=== PATIENT | male | born 1960 | race Two or more races ===

== ENCOUNTER 2021-10-08 11:37 | Outpatient (REF) | payer SELFPAY ==
[2021-10-08 13:49] LABS: Hematocrit 48.8 % (42.0-52.0); Hemoglobin 15.7 g/dl (14.0-18.0); Mean Corpuscular HGB Conc 32.2 g/dl (31.0-36.0); Mean Corpuscular Hemoglobin 27.5 pg (27.0-33.0); Mean Corpuscular Volume 85.5 fL (80.0-98.0); Mean Platelet Volume 9.8 fL (9.4-12.4); Platelet Count 290 X10*3/uL (160-400); Red Blood Count 5.71 X10*6/uL (4.60-5.80); Red Cell Distribution Width 15.1 % (11.0-16.0); White Blood Count 3.6 X10*3/uL (4.8-10.8)
[2021-10-08 14:38] LABS: Alanine Aminotransferase 13 U/L (0-40); Albumin Level 4.1 g/dL (3.5-5.0); Alkaline Phosphatase 70 U/L (39-117); Anion Gap 11 (12-20); Aspartate Amino Transferase 14 U/L (5-37); Bilirubin Direct 0.2 mg/dL (0.0-0.5); Bilirubin Total 0.6 mg/dL (0.0-1.0); Blood Urea Nitrogen 12 mg/dL (9-16); Calcium 9.3 mg/dL (8.4-10.2); Carbon Dioxide 28 mmol/L (22-29); Chloride 107 mmol/L (96-108); Estimated Glomerular Filt Rate > 60; Glucose Random 104 mg/dL (60-115); Potassium 3.8 mmol/L (3.3-5.1); Sodium 142 mmol/L (135-145); Total Protein 7.1 g/dL (6.5-8.0)
[2021-10-08 15:03] LABS: Prostate Specific Antigen Scr 2.82 ng/mL (<0.05-4.0)
== END 2021-10-08 11:38 | disposition home or self-care (01) ==
LOC: HO.HMGCLDS 11:37
PROVIDERS: Visit Provider Internal Medicine
DX: Z12.5 Encounter for screening for malignant neoplasm of prostate (principal); N39.0 Urinary tract infection, site not specified
CPT/HCPCS: 36415; 80048; 80076; 84153; 85027

== ENCOUNTER 2022-07-27 13:29 | Emergency (ER) | payer MEDICAID, SELFPAY ==
--- NOTE | ~2022-07-27 | XR_ITS ---
EXAMINATION: XR CHEST CLINICAL INFORMATION: Confusion for one month COMPARISON: None TECHNIQUE: 2 views of the chest were obtained. FINDINGS: Cardiac leads overlie the chest. The lungs are well expanded. There is no focal consolidation, edema, or effusion. No pneumothorax. The cardiomediastinal silhouette is within normal limits of size with a tortuous aorta. No acute osseous abnormality. XR/XR chest 2V IMPRESSION: Clear lungs.
--- NOTE | ~2022-07-27 | CT_ITS ---
EXAMINATION: CT HEAD WITHOUT CONTRAST CLINICAL INFORMATION: Confusion for one month COMPARISON: None. TECHNIQUE: Contiguous axial imaging was performed from the skull base to vertex without intravenous contrast. This CT examination was performed using dose optimization techniques as appropriate, variously including the following: * Automated exposure control * Adjustment of mA and/or kV according to patient size (this includes techniques or standardized protocols for targeted exams where dose is matched to indication/reason for exam; i.e. extremities or head) Use of iterative reconstruction technique DLP: 649 mGy-cm. FINDINGS: There is no evidence of acute intracranial hemorrhage or territorial infarction. No abnormal mass effect or midline shift is seen. [place] to white matter differentiation is well preserved. No extra-axial fluid collections are identified. No hydrocephalus. Proportional prominence of the ventricles and sulcal spaces is consistent with mild volume loss. Patchy periventricular and deep white matter hypoattenuation is consistent with mild small vessel ischemic changes. The osseous structures and soft tissues are normal. The mastoid air cells and visualized portions of the paranasal sinuses are well aerated. CT/CT head/brain wo IV con IMPRESSION: No acute intracranial pathology. Mild volume loss with small vessel ischemic change.
[2022-07-27 13:39] VITALS: BP 166/100; PULSE 60; RESP 18; TEMP 36.4; O2SAT 100; BMI 25.7
--- NOTE | 2022-07-27 13:39 | ED.HA ---
HPI - Headache General Chief Complaint: Altered Mental Status <CRISTY James - Last Filed: 07/27/22 13:46> Stated Complaint: headaches, confusion <CRISTY James - Last Filed: 07/27/22 13:46> Time Seen by Provider: 07/27/22 13:52 <CRISTY James - Last Filed: 07/27/22 13:46> Source: patient and family <Stephen Coates MD - Last Filed: 07/27/22 15:50> Mode of arrival: ambulatory <Stephen Coates MD - Last Filed: 07/27/22 15:50> Limitations: no limitations <Stephen Coates MD - Last Filed: 07/27/22 15:50> History of Present Illness HPI Narrative: 61yoM presenting to ED c at bedside c c/o of increasing headaches and confusion over the past month and also waking up a lot at night with increased urinary urgency/frequency x 1 month and is now concerned therefore she brought him here for further evaluation treatment. She reports that he has not seen a doctor in many many years. He does not take any medications. He does not feel like he is emptying his bladder. Patient has lost 40lbs in the last 3 months <Stephen Coates MD - Last Filed: 07/27/22 15:50> MD elicited complaint: headache <Stephen Coates MD - Last Filed: 07/27/22 15:50> Onset (ago): month(s) <Stephen Coates MD - Last Filed: 07/27/22 15:50> Onset description: gradually <Stephen Coates MD - Last Filed: 07/27/22 15:50> Severity: mild <Stephen Coates MD - Last Filed: 07/27/22 15:50> Quality & Timing: aching <Stephen Coates MD - Last Filed: 07/27/22 15:50> Exacerbating factors: none <Stephen Coates MD - Last Filed: 07/27/22 15:50> Relieving factors: nothing <Stephen Coates MD - Last Filed: 07/27/22 15:50> Associated symptoms: confusion <Stephen Coates MD - Last Filed: 07/27/22 15:50> Treatments prior to arrival: none <Stephen Coates MD - Last Filed: 07/27/22 15:50> Related Data Allergies/Adverse Reactions: Allergies Allergy/AdvReac Type Severity Reaction Status Date / Time No Known Allergies Allergy Verified 04/15/22 13:06 <CRISTY James - Last Filed: 07/27/22 13:46> Review of Systems Review of Systems: Yes all other systems are reviewed and are negative <Stephen Coates MD - Last Filed: 07/27/22 15:50> [facility] Social History Social History: Social History Advance Directives: No Advance Directives Information Provided: No <CRISTY James - Last Filed: 07/27/22 13:46> Physical Exam Vital Signs: Vital Signs: Last Vital Signs Temp 97.5 F 07/27/22 13:39 Pulse 60 07/27/22 13:39 Resp 16 07/27/22 14:31 BP 166/100 H 07/27/22 13:39 Pulse Ox 100 07/27/22 13:39 O2 Del Method 07/27/22 13:39 BMI result Body Mass Index 25.7 <CRISTY James - Last Filed: 07/27/22 13:46> Vital Signs: Last Vital Signs Temp 97.5 F 07/27/22 13:39 Pulse 60 07/27/22 13:39 Resp 16 07/27/22 14:31 BP 166/100 H 07/27/22 13:39 Pulse Ox 100 07/27/22 13:39 O2 Del Method 07/27/22 13:39 BMI result Body Mass Index 25.7 <Stephen Coates MD - Last Filed: 07/27/22 15:50> Course Course Course Narrative: RME - 61yoM presenting to ED c at bedside c c/o of increasing headaches and confusion over the past month and also waking up a lot at night with increased urinary urgency/frequency x 1 month and is now concerned therefore she brought him here for further evaluation treatment. She reports that he has not seen a doctor in many many years. He does not take any medications. He does not have a primary care provider. On exam he is alert to self and place although does not know date. Normal steady gait. Extraocular movements are intact. No pronator drift noted. Face is symmetrical bilaterally. No nystagmus is noted. Therefore at this time patient will be brought to the emergency department for further evaluation treatment labs, EKG, chest x-ray, CT scan of brain without contrast, UA, drugs of abuse screen all ordered at this time. <CRISTY James - Last Filed: 07/27/22 13:46> Reevaluation(s) Reevaluation #1: No pathology found, will have the patient follow up with his doctor, I am concerned about early dementia <Stephen Coates MD - Last Filed: 07/27/22 15:50> Time: 15:49 <Stephen Coates MD - Last Filed: 07/27/22 15:50> Medical Decision Making Differential Diagnosis stroke, tumor, metastatic disease, electrolyte abnormality, UTI, early dementia <Stephen Coates MD - Last Filed: 07/27/22 15:50> Admission/Observation Based on age and symptoms admission was considered <Stephen Coates MD - Last Filed: 07/27/22 15:50> Lab Data Result Diagrams: 07/27/22 14:09 07/27/22 14:09 <CRISTY James - Last Filed: 07/27/22 13:46> Labs: Lab Results 07/27/22 07/27/22 07/27/22 Range/Units 14:06 14:09 14:09 WBC 3.8 L (4.8-10.8) X10*3/uL RBC 5.63 (4.60-5.80) X10*6/uL Hgb 15.5 (14.0-18.0) g/dl Hct 46.9 (42.0-52.0) % MCV 83.3 (80.0-98.0) fL MCH 27.5 (27.0-33.0) pg MCHC 33.0 (31.0-36.0) g/dl RDW 14.4 (11.0-16.0) % Plt Count 335 (160-400) X10*3/uL MPV 9.1 L (9.4-12.4) fL Immature Gran % (Auto) 0.3 (0.0-0.4) % Neut % (Auto) 55.3 (45-73) % Lymph % (Auto) 29.0 (20-40) % [place] % (Auto) 13.1 H (2-11) % Eos % (Auto) 1.3 (0-4) % Baso % (Auto) 1.0 (0-2) % Lymph # (Auto) 1.1 L (1.2-4.9) X10*3/uL [place] # (Auto) 0.5 (0.1-1.2) X10*3/uL Eos # (Auto) 0.1 (0.0-0.4) X10*3/uL Baso # (Auto) 0.0 (0.0-0.2) X10*3/uL Abs Immat Gran (auto) 0.01 (0.00-0.03) X10*3/uL Absolute Neuts (auto) 2.1 (2.0-8.3) x10*3/uL Absolute Nucleated RBC 0.000 (0.0-0.012) X10*3/uL Nucleated RBC % (auto) 0.0 (0.0-0.2) /100WBC PT 12.6 (10.0-13.1) SEC INR 1.1 (0.9-1.1) Sodium (135-145) mmol/L Potassium (3.3-5.1) mmol/L Chloride (96-108) mmol/L Carbon Dioxide (22-29) mmol/L Anion Gap (12-20) BUN (9-16) mg/dL Creatinine (0.5-1.4) mg/dL Estim Creat Clear Calc Estimated GFR POC Glucose 87 (60-115) mg/dL Random Glucose (60-115) mg/dL Calcium (8.4-10.2) mg/dL Magnesium (1.6-2.6) mg/dL Total Bilirubin (0.0-1.0) mg/dL AST (5-37) U/L ALT (0-40) U/L Alkaline Phosphatase (39-117) U/L Troponin I High Sens (<3.5-35.0) ng/L Total Protein (6.5-8.0) g/dL Albumin (3.5-5.0) g/dL Urine Color Urine Appearance Urine pH (5.0-9.0) Ur Specific [place] (1.005-1.025) Urine Protein (Neg-Trace) mg/dL Urine Glucose (UA) (Negative) mg/dL Urine Ketones (Negative) mg/dL Urine Blood (Negative) Urine Nitrite (Negative) Ur Leukocyte Esterase (Negative) Urine RBC (0-2) /HPF Urine WBC (0-5) /HPF Ur Squamous Epith Cells (0-2) /HPF Urine Bacteria (None Seen) Hyaline Casts (0-2) /LPF Urine Opiates Screen (Not Detect) Urine Fentanyl Screen (Not Detect) Ur Barbiturates Screen (Not Detect) Ur Phencyclidine Scrn (Not Detect) Ur Amphetamines Screen (Not Detect) U Benzodiazepines Scrn (Not Detect) Urine Cocaine Screen (Not Detect) U Marijuana (THC) Screen (Not Detect) Ethyl Alcohol mg/dL Influenza Type A (PCR) (Negative) Influenza Type B (PCR) (Negative) RSV RNA Qual (PCR) (Negative) SARS-CoV-2 RNA (RT-PCR) (Negative) 07/27/22 07/27/22 07/27/22 Range/Units 14:09 14:09 14:09 WBC (4.8-10.8) X10*3/uL RBC (4.60-5.80) X10*6/uL Hgb (14.0-18.0) g/dl Hct (42.0-52.0) % MCV (80.0-98.0) fL MCH (27.0-33.0) pg MCHC (31.0-36.0) g/dl RDW (11.0-16.0) % Plt Count (160-400) X10*3/uL MPV (9.4-12.4) fL Immature Gran % (Auto) (0.0-0.4) % Neut % (Auto) (45-73) % Lymph % (Auto) (20-40) % [place] % (Auto) (2-11) % Eos % (Auto) (0-4) % Baso % (Auto) (0-2) % Lymph # (Auto) (1.2-4.9) X10*3/uL [place] # (Auto) (0.1-1.2) X10*3/uL Eos # (Auto) (0.0-0.4) X10*3/uL Baso # (Auto) (0.0-0.2) X10*3/uL Abs Immat Gran (auto) (0.00-0.03) X10*3/uL Absolute Neuts (auto) (2.0-8.3) x10*3/uL Absolute Nucleated RBC (0.0-0.012) X10*3/uL Nucleated RBC % (auto) (0.0-0.2) /100WBC PT (10.0-13.1) SEC INR (0.9-1.1) Sodium 141 (135-145) mmol/L Potassium 4.7 D (3.3-5.1) mmol/L Chloride 105 (96-108) mmol/L Carbon Dioxide 28 (22-29) mmol/L Anion Gap 13 (12-20) BUN 11 (9-16) mg/dL Creatinine 1.08 (0.5-1.4) mg/dL Estim Creat Clear Calc 68.0 Estimated GFR > 60 POC Glucose (60-115) mg/dL Random Glucose 101 (60-115) mg/dL Calcium 9.3 (8.4-10.2) mg/dL Magnesium 1.8 (1.6-2.6) mg/dL Total Bilirubin 0.3 (0.0-1.0) mg/dL AST 16 (5-37) U/L ALT 13 (0-40) U/L Alkaline Phosphatase 71 (39-117) U/L Troponin I High Sens 4.0 (<3.5-35.0) ng/L Total Protein 6.9 (6.5-8.0) g/dL Albumin 4.0 (3.5-5.0) g/dL Urine Color Urine Appearance Urine pH (5.0-9.0) Ur Specific [place] (1.005-1.025) Urine Protein (Neg-Trace) mg/dL Urine Glucose (UA) (Negative) mg/dL Urine Ketones (Negative) mg/dL Urine Blood (Negative) Urine Nitrite (Negative) Ur Leukocyte Esterase (Negative) Urine RBC (0-2) /HPF Urine WBC (0-5) /HPF Ur Squamous Epith Cells (0-2) /HPF Urine Bacteria (None Seen) Hyaline Casts (0-2) /LPF Urine Opiates Screen (Not Detect) Urine Fentanyl Screen (Not Detect) Ur Barbiturates Screen (Not Detect) Ur Phencyclidine Scrn (Not Detect) Ur Amphetamines Screen (Not Detect) U Benzodiazepines Scrn (Not Detect) Urine Cocaine Screen (Not Detect) U Marijuana (THC) Screen (Not Detect) Ethyl Alcohol mg/dL Influenza Type A (PCR) NEGATIVE (Negative) Influenza Type B (PCR) NEGATIVE (Negative) RSV RNA Qual (PCR) NEGATIVE (Negative) SARS-CoV-2 RNA (RT-PCR) NEGATIVE (Negative) 07/27/22 07/27/22 07/27/22 Range/Units 14:09 14:23 14:23 WBC (4.8-10.8) X10*3/uL RBC (4.60-5.80) X10*6/uL Hgb (14.0-18.0) g/dl Hct (42.0-52.0) % MCV (80.0-98.0) fL MCH (27.0-33.0) pg MCHC (31.0-36.0) g/dl RDW (11.0-16.0) % Plt Count (160-400) X10*3/uL MPV (9.4-12.4) fL Immature Gran % (Auto) (0.0-0.4) % Neut % (Auto) (45-73) % Lymph % (Auto) (20-40) % [place] % (Auto) (2-11) % Eos % (Auto) (0-4) % Baso % (Auto) (0-2) % Lymph # (Auto) (1.2-4.9) X10*3/uL [place] # (Auto) (0.1-1.2) X10*3/uL Eos # (Auto) (0.0-0.4) X10*3/uL Baso # (Auto) (0.0-0.2) X10*3/uL Abs Immat Gran (auto) (0.00-0.03) X10*3/uL Absolute Neuts (auto) (2.0-8.3) x10*3/uL Absolute Nucleated RBC (0.0-0.012) X10*3/uL Nucleated RBC % (auto) (0.0-0.2) /100WBC PT (10.0-13.1) SEC INR (0.9-1.1) Sodium (135-145) mmol/L Potassium (3.3-5.1) mmol/L Chloride (96-108) mmol/L Carbon Dioxide (22-29) mmol/L Anion Gap (12-20) BUN (9-16) mg/dL Creatinine (0.5-1.4) mg/dL Estim Creat Clear Calc Estimated GFR POC Glucose (60-115) mg/dL Random Glucose (60-115) mg/dL Calcium (8.4-10.2) mg/dL Magnesium (1.6-2.6) mg/dL Total Bilirubin (0.0-1.0) mg/dL AST (5-37) U/L ALT (0-40) U/L Alkaline Phosphatase (39-117) U/L Troponin I High Sens (<3.5-35.0) ng/L Total Protein (6.5-8.0) g/dL Albumin (3.5-5.0) g/dL Urine Color Yellow Urine Appearance Clear Urine pH 6.5 (5.0-9.0) Ur Specific [place] 1.010 (1.005-1.025) Urine Protein Negative (Neg-Trace) mg/dL Urine Glucose (UA) Negative (Negative) mg/dL Urine Ketones Negative (Negative) mg/dL Urine Blood Negative (Negative) Urine Nitrite Negative (Negative) Ur Leukocyte Esterase Trace H (Negative) Urine RBC 0-2 (0-2) /HPF Urine WBC 0-5 (0-5) /HPF Ur Squamous Epith Cells 0-2 (0-2) /HPF Urine Bacteria None Seen (None Seen) Hyaline Casts 0-2 (0-2) /LPF Urine Opiates Screen Not Detected (Not Detect) Urine Fentanyl Screen Not Detected (Not Detect) Ur Barbiturates Screen Not Detected (Not Detect) Ur Phencyclidine Scrn Not Detected (Not Detect) Ur Amphetamines Screen Not Detected (Not Detect) U Benzodiazepines Scrn Not Detected (Not Detect) Urine Cocaine Screen Not Detected (Not Detect) U Marijuana (THC) Screen Not Detected (Not Detect) Ethyl Alcohol < 10 mg/dL Influenza Type A (PCR) (Negative) Influenza Type B (PCR) (Negative) RSV RNA Qual (PCR) (Negative) SARS-CoV-2 RNA (RT-PCR) (Negative) <CRISTY James - Last Filed: 07/27/22 13:46> Lab Results 07/27/22 07/27/22 07/27/22 Range/Units 14:06 14:09 14:09 WBC 3.8 L (4.8-10.8) X10*3/uL RBC 5.63 (4.60-5.80) X10*6/uL Hgb 15.5 (14.0-18.0) g/dl Hct 46.9 (42.0-52.0) % MCV 83.3 (80.0-98.0) fL MCH 27.5 (27.0-33.0) pg MCHC 33.0 (31.0-36.0) g/dl RDW 14.4 (11.0-16.0) % Plt Count 335 (160-400) X10*3/uL MPV 9.1 L (9.4-12.4) fL Immature Gran % (Auto) 0.3 (0.0-0.4) % Neut % (Auto) 55.3 (45-73) % Lymph % (Auto) 29.0 (20-40) % [place] % (Auto) 13.1 H (2-11) % Eos % (Auto) 1.3 (0-4) % Baso % (Auto) 1.0 (0-2) % Lymph # (Auto) 1.1 L (1.2-4.9) X10*3/uL [place] # (Auto) 0.5 (0.1-1.2) X10*3/uL Eos # (Auto) 0.1 (0.0-0.4) X10*3/uL Baso # (Auto) 0.0 (0.0-0.2) X10*3/uL Abs Immat Gran (auto) 0.01 (0.00-0.03) X10*3/uL Absolute Neuts (auto) 2.1 (2.0-8.3) x10*3/uL Absolute Nucleated RBC 0.000 (0.0-0.012) X10*3/uL Nucleated RBC % (auto) 0.0 (0.0-0.2) /100WBC PT 12.6 (10.0-13.1) SEC INR 1.1 (0.9-1.1) Sodium (135-145) mmol/L Potassium (3.3-5.1) mmol/L Chloride (96-108) mmol/L Carbon Dioxide (22-29) mmol/L Anion Gap (12-20) BUN (9-16) mg/dL Creatinine (0.5-1.4) mg/dL Estim Creat Clear Calc Estimated GFR POC Glucose 87 (60-115) mg/dL Random Glucose (60-115) mg/dL Calcium (8.4-10.2) mg/dL Magnesium (1.6-2.6) mg/dL Total Bilirubin (0.0-1.0) mg/dL AST (5-37) U/L ALT (0-40) U/L Alkaline Phosphatase (39-117) U/L Troponin I High Sens (<3.5-35.0) ng/L Total Protein (6.5-8.0) g/dL Albumin (3.5-5.0) g/dL Urine Color Urine Appearance Urine pH (5.0-9.0) Ur Specific [place] (1.005-1.025) Urine Protein (Neg-Trace) mg/dL Urine Glucose (UA) (Negative) mg/dL Urine Ketones (Negative) mg/dL Urine Blood (Negative) Urine Nitrite (Negative) Ur Leukocyte Esterase (Negative) Urine RBC (0-2) /HPF Urine WBC (0-5) /HPF Ur Squamous Epith Cells (0-2) /HPF Urine Bacteria (None Seen) Hyaline Casts (0-2) /LPF Urine Opiates Screen (Not Detect) Urine Fentanyl Screen (Not Detect) Ur Barbiturates Screen (Not Detect) Ur Phencyclidine Scrn (Not Detect) Ur Amphetamines Screen (Not Detect) U Benzodiazepines Scrn (Not Detect) Urine Cocaine Screen (Not Detect) U Marijuana (THC) Screen (Not Detect) Ethyl Alcohol mg/dL Influenza Type A (PCR) (Negative) Influenza Type B (PCR) (Negative) RSV RNA Qual (PCR) (Negative) SARS-CoV-2 RNA (RT-PCR) (Negative) 07/27/22 07/27/22 07/27/22 Range/Units 14:09 14:09 14:09 WBC (4.8-10.8) X10*3/uL RBC (4.60-5.80) X10*6/uL Hgb (14.0-18.0) g/dl Hct (42.0-52.0) % MCV (80.0-98.0) fL MCH (27.0-33.0) pg MCHC (31.0-36.0) g/dl RDW (11.0-16.0) % Plt Count (160-400) X10*3/uL MPV (9.4-12.4) fL Immature Gran % (Auto) (0.0-0.4) % Neut % (Auto) (45-73) % Lymph % (Auto) (20-40) % [place] % (Auto) (2-11) % Eos % (Auto) (0-4) % Baso % (Auto) (0-2) % Lymph # (Auto) (1.2-4.9) X10*3/uL [place] # (Auto) (0.1-1.2) X10*3/uL Eos # (Auto) (0.0-0.4) X10*3/uL Baso # (Auto) (0.0-0.2) X10*3/uL Abs Immat Gran (auto) (0.00-0.03) X10*3/uL Absolute Neuts (auto) (2.0-8.3) x10*3/uL Absolute Nucleated RBC (0.0-0.012) X10*3/uL Nucleated RBC % (auto) (0.0-0.2) /100WBC PT (10.0-13.1) SEC INR (0.9-1.1) Sodium 141 (135-145) mmol/L Potassium 4.7 D (3.3-5.1) mmol/L Chloride 105 (96-108) mmol/L Carbon Dioxide 28 (22-29) mmol/L Anion Gap 13 (12-20) BUN 11 (9-16) mg/dL Creatinine 1.08 (0.5-1.4) mg/dL Estim Creat Clear Calc 68.0 Estimated GFR > 60 POC Glucose (60-115) mg/dL Random Glucose 101 (60-115) mg/dL Calcium 9.3 (8.4-10.2) mg/dL Magnesium 1.8 (1.6-2.6) mg/dL Total Bilirubin 0.3 (0.0-1.0) mg/dL AST 16 (5-37) U/L ALT 13 (0-40) U/L Alkaline Phosphatase 71 (39-117) U/L Troponin I High Sens 4.0 (<3.5-35.0) ng/L Total Protein 6.9 (6.5-8.0) g/dL Albumin 4.0 (3.5-5.0) g/dL Urine Color Urine Appearance Urine pH (5.0-9.0) Ur Specific [place] (1.005-1.025) Urine Protein (Neg-Trace) mg/dL Urine Glucose (UA) (Negative) mg/dL Urine Ketones (Negative) mg/dL Urine Blood (Negative) Urine Nitrite (Negative) Ur Leukocyte Esterase (Negative) Urine RBC (0-2) /HPF Urine WBC (0-5) /HPF Ur Squamous Epith Cells (0-2) /HPF Urine Bacteria (None Seen) Hyaline Casts (0-2) /LPF Urine Opiates Screen (Not Detect) Urine Fentanyl Screen (Not Detect) Ur Barbiturates Screen (Not Detect) Ur Phencyclidine Scrn (Not Detect) Ur Amphetamines Screen (Not Detect) U Benzodiazepines Scrn (Not Detect) Urine Cocaine Screen (Not Detect) U Marijuana (THC) Screen (Not Detect) Ethyl Alcohol mg/dL Influenza Type A (PCR) NEGATIVE (Negative) Influenza Type B (PCR) NEGATIVE (Negative) RSV RNA Qual (PCR) NEGATIVE (Negative) SARS-CoV-2 RNA (RT-PCR) NEGATIVE (Negative) 07/27/22 07/27/22 07/27/22 Range/Units 14:09 14:23 14:23 WBC (4.8-10.8) X10*3/uL RBC (4.60-5.80) X10*6/uL Hgb (14.0-18.0) g/dl Hct (42.0-52.0) % MCV (80.0-98.0) fL MCH (27.0-33.0) pg MCHC (31.0-36.0) g/dl RDW (11.0-16.0) % Plt Count (160-400) X10*3/uL MPV (9.4-12.4) fL Immature Gran % (Auto) (0.0-0.4) % Neut % (Auto) (45-73) % Lymph % (Auto) (20-40) % [place] % (Auto) (2-11) % Eos % (Auto) (0-4) % Baso % (Auto) (0-2) % Lymph # (Auto) (1.2-4.9) X10*3/uL [place] # (Auto) (0.1-1.2) X10*3/uL Eos # (Auto) (0.0-0.4) X10*3/uL Baso # (Auto) (0.0-0.2) X10*3/uL Abs Immat Gran (auto) (0.00-0.03) X10*3/uL Absolute Neuts (auto) (2.0-8.3) x10*3/uL Absolute Nucleated RBC (0.0-0.012) X10*3/uL Nucleated RBC % (auto) (0.0-0.2) /100WBC PT (10.0-13.1) SEC INR (0.9-1.1) Sodium (135-145) mmol/L Potassium (3.3-5.1) mmol/L Chloride (96-108) mmol/L Carbon Dioxide (22-29) mmol/L Anion Gap (12-20) BUN (9-16) mg/dL Creatinine (0.5-1.4) mg/dL Estim Creat Clear Calc Estimated GFR POC Glucose (60-115) mg/dL Random Glucose (60-115) mg/dL Calcium (8.4-10.2) mg/dL Magnesium (1.6-2.6) mg/dL Total Bilirubin (0.0-1.0) mg/dL AST (5-37) U/L ALT (0-40) U/L Alkaline Phosphatase (39-117) U/L Troponin I High Sens (<3.5-35.0) ng/L Total Protein (6.5-8.0) g/dL Albumin (3.5-5.0) g/dL Urine Color Yellow Urine Appearance Clear Urine pH 6.5 (5.0-9.0) Ur Specific [place] 1.010 (1.005-1.025) Urine Protein Negative (Neg-Trace) mg/dL Urine Glucose (UA) Negative (Negative) mg/dL Urine Ketones Negative (Negative) mg/dL Urine Blood Negative (Negative) Urine Nitrite Negative (Negative) Ur Leukocyte Esterase Trace H (Negative) Urine RBC 0-2 (0-2) /HPF Urine WBC 0-5 (0-5) /HPF Ur Squamous Epith Cells 0-2 (0-2) /HPF Urine Bacteria None Seen (None Seen) Hyaline Casts 0-2 (0-2) /LPF Urine Opiates Screen Not Detected (Not Detect) Urine Fentanyl Screen Not Detected (Not Detect) Ur Barbiturates Screen Not Detected (Not Detect) Ur Phencyclidine Scrn Not Detected (Not Detect) Ur Amphetamines Screen Not Detected (Not Detect) U Benzodiazepines Scrn Not Detected (Not Detect) Urine Cocaine Screen Not Detected (Not Detect) U Marijuana (THC) Screen Not Detected (Not Detect) Ethyl Alcohol < 10 mg/dL Influenza Type A (PCR) (Negative) Influenza Type B (PCR) (Negative) RSV RNA Qual (PCR) (Negative) SARS-CoV-2 RNA (RT-PCR) (Negative) <Stephen Coates MD - Last Filed: 07/27/22 15:50> Independent Interpretation I performed an independent interpretation of an: EKG (sinus 70, no st or twave changes) and CT Scan (head CT no blood or tumor seen) <Stephen Coates MD - Last Filed: 07/27/22 15:50> Radiology Impression Discussion of test interpretation with radiology: I have reviewed the radiologist's reading. <Stephen Coates MD - Last Filed: 07/27/22 15:50> Independent Historian Clinical information obtained from an independent historian. History obtained from or confirmed by: Spouse <Stephen Coates MD - Last Filed: 07/27/22 15:50> Discharge Plan Discharge Clinical Impression: Altered mental status <CRISTY James - Last Filed: 07/27/22 13:46> Patient Disposition: Home, Self-Care <CRISTY James - Last Filed: 07/27/22 13:46> Instructions: Altered Mental Status (ED) <CRISTY James - Last Filed: 07/27/22 13:46> Referrals: Physician,None [Primary Care Provider] - 1 week (Must see your doctor this week) <CRISTY James - Last Filed: 07/27/22 13:46>
--- NOTE | 2022-07-27 13:43 | ECG_ITS ---
Test Reason : ams Blood Pressure : / mmHG Vent. Rate : 068 BPM Atrial Rate : 068 BPM P-R Int : 148 ms QRS Dur : 092 ms QT Int : 400 ms P-R-T Axes : 055 -19 052 degrees QTc Int : 425 ms Normal sinus rhythm Normal ECG No previous ECGs available Referred By: Gail Narayanan Electronically Signed By:QUINN RASMUSSEN
[2022-07-27 14:09] LABS: Glucose, Whole Blood 87 mg/dL (60-115)
[2022-07-27 14:14] LABS: MANUAL DIFF FLAG NO
[2022-07-27 14:16] LABS: Eosinophils Absolute Auto 0.1 X10*3/uL (0.0-0.4); Eosinophils Percent Auto 1.3 % (0-4); Hematocrit 46.9 % (42.0-52.0); Hemoglobin 15.5 g/dl (14.0-18.0); Imm Gran Abs Auto 0.01 X10*3/uL (0.00-0.03); Imm Gran Pct Auto 0.3 % (0.0-0.4); Lymphocytes Absolute Auto 1.1 X10*3/uL (1.2-4.9); Mean Corpuscular Hemoglobin 27.5 pg (27.0-33.0); Mean Corpuscular Volume 83.3 fL (80.0-98.0); Mean Platelet Volume 9.1 fL (9.4-12.4); Monocytes Absolute Auto 0.5 X10*3/uL (0.1-1.2); Monocytes Percent Auto 13.1 % (2-11); Neutrophils Absolute Auto 2.1 x10*3/uL (2.0-8.3); Neutrophils Percent Auto 55.3 % (45-73); Platelet Count 335 X10*3/uL (160-400); Red Blood Count 5.63 X10*6/uL (4.60-5.80); Red Cell Distribution Width 14.4 % (11.0-16.0); White Blood Count 3.8 X10*3/uL (4.8-10.8)
[2022-07-27 14:21] LABS: INTERNATIONAL NORM RATIO 1.1 (0.9-1.1); Prothrombin Time 12.6 SEC (10.0-13.1)
[2022-07-27 14:31] VITALS: RESP 16
[2022-07-27 14:36] LABS: Appearance Urine Clear; Color Urine Yellow; Glucose Urine UA Negative (Negative); Leukocyte Esterase Urine Trace (Negative); Nitrite Urine Negative (Negative); PH 6.5 (5.0-9.0); UMIC TRIGGER UACC YES; Urine Blood Negative (Negative); Urine Ketones Negative (Negative); Urine Protein Negative (Neg-Trace)
[2022-07-27 14:39] LABS: Bacteria Urine None Seen (None Seen); Hyaline Casts Urine 0-2 /LPF (0-2); RBC Urine 0-2 /HPF (0-2); Squamous Epithelial Cell Urine 0-2 /HPF (0-2); WBC Urine 0-5 /HPF (0-5)
[2022-07-27 14:42] LABS: Alanine Aminotransferase 13 U/L (0-40); Alkaline Phosphatase 71 U/L (39-117); Anion Gap 13 (12-20); Aspartate Amino Transferase 16 U/L (5-37); Bilirubin Total 0.3 mg/dL (0.0-1.0); Blood Urea Nitrogen 11 mg/dL (9-16); Calcium 9.3 mg/dL (8.4-10.2); Carbon Dioxide 28 mmol/L (22-29); Chloride 105 mmol/L (96-108); Estimated Glomerular Filt Rate > 60; Glucose Random 101 mg/dL (60-115); Magnesium 1.8 mg/dL (1.6-2.6); Potassium 4.7 mmol/L (3.3-5.1); Sodium 141 mmol/L (135-145); Total Protein 6.9 g/dL (6.5-8.0)
[2022-07-27 14:43] LABS: Amphetamine Screen Urine Not Detected (Not Detect); Barbiturates, Urine Not Detected (Not Detect); Benzodiazepines Screen Urine Not Detected (Not Detect); Cannabinoid Screen Urine Not Detected (Not Detect); Cocaine Screen Urine Not Detected (Not Detect); Fentanyl, urine Not Detected (Not Detect); Opiate Screen Urine Not Detected (Not Detect); Phencyclidine Screen Urine Not Detected (Not Detect)
[2022-07-27 15:18] LABS: Ethanol < 10 mg/dL; Influenza A PCR NEGATIVE (Negative); Influenza B PCR NEGATIVE (Negative); Resp Syncy Virus RNA Qual PCR NEGATIVE (Negative); SARS COV2 PCR INHOUSE NEGATIVE (Negative)
== END 2022-07-27 16:27 | disposition home or self-care (01) ==
PROVIDERS: Physician Assistant Medical; Emergency Provider Emergency Medicine
DX: R41.82 Altered mental status, unspecified (principal); R51.9 Headache, unspecified; R39.15 Urgency of urination; R35.0 Frequency of micturition; Z20.822 Contact with and (suspected) exposure to COVID-19; Z20.828 Contact with and (suspected) exposure to other viral communicable diseases
CPT/HCPCS: 0241U; 51798; 70450; 71046; 80053; 80307; 81001; 82077; 82947; 83735; 84484; 85025; 85610; 87040; 93005; 99284; 99285

== ENCOUNTER 2022-08-15 12:21 | Emergency (ER) | payer OTHER, SELFPAY ==
--- NOTE | 2022-08-15 12:55 | ED_ITS ---
HPI - General Adult General Chief complaint: General Medical <CRISTY Goldstein - Last Filed: 08/15/22 13:02> Stated complaint: cold <CRISTY Goldstein - Last Filed: 08/15/22 13:02> Time Seen by Provider: 08/15/22 16:21 <CRISTY Goldstein - Last Filed: 08/15/22 13:02> Source: patient <Aidan Clemons MD - Last Filed: 08/15/22 20:39> Mode of arrival: ambulatory <Aidan Clemons MD - Last Filed: 08/15/22 20:39> Limitations: no limitations <Aidan Clemons MD - Last Filed: 08/15/22 20:39> History of Present Illness HPI narrative: Patient with multiple complaints complaining of slight headache for him in urination urinating a lot , no burning sensation no hematuria no flank pain. Denies any change in the stream of the urine no abdominal pain or back pain patient was seen here on 07/27 at that time blood pressure was elevated but not started on any medication patient has not seen any PCP for years. No chest pain or shortness of breath <Aidan Clemons MD - Last Filed: 08/15/22 20:39> Related Data Home medications: Previous Rx's Medication Instructions Recorded amlodipine 5 mg tablet 5 mg PO DAILY #90 tabs 08/15/22 lisinopril 20 mg tablet 20 mg PO DAILY #90 tabs 08/15/22 <CRISTY Goldstein - Last Filed: 08/15/22 13:02> Allergies/adverse reactions: Allergies Allergy/AdvReac Type Severity Reaction Status Date / Time No Known Allergies Allergy Verified 08/15/22 13:04 <CRISTY Goldstein - Last Filed: 08/15/22 13:02> Review of Systems Review of Systems: Yes all other systems are reviewed and are negative <Aidan Clemons MD - Last Filed: 08/15/22 20:39> [facility] Social History Social History: Social History Advance Directives: No Advance Directives Information Provided: Yes <CRISTY Goldstein - Last Filed: 08/15/22 13:02> Physical Exam ED Vital Signs: Vital Signs - 24 hr 08/15/22 12:56 08/15/22 16:47 08/15/22 17:59 Temperature 98.8 F Pulse Rate 65 68 65 Respiratory Rate 18 18 18 Blood Pressure 199/120 H 191/112 H 182/106 H Pulse Oximetry 98 Oxygen Delivery Method Room Air 08/15/22 18:05 08/15/22 19:55 08/15/22 20:00 Temperature 98.8 F 97.9 F Pulse Rate 60 59 61 Respiratory Rate 18 13 Blood Pressure 189/115 H 164/103 H 161/100 H Pulse Oximetry 96 98 Oxygen Delivery Method Room Air Room Air BMI result Body Mass Index 25.0 <CRISTY Goldstein - Last Filed: 08/15/22 13:02> Vital Signs - 24 hr 08/15/22 12:56 08/15/22 16:47 08/15/22 17:59 Temperature 98.8 F Pulse Rate 65 68 65 Respiratory Rate 18 18 18 Blood Pressure 199/120 H 191/112 H 182/106 H Pulse Oximetry 98 Oxygen Delivery Method Room Air 08/15/22 18:05 08/15/22 19:55 08/15/22 20:00 Temperature 98.8 F 97.9 F Pulse Rate 60 59 61 Respiratory Rate 18 13 Blood Pressure 189/115 H 164/103 H 161/100 H Pulse Oximetry 96 98 Oxygen Delivery Method Room Air Room Air BMI result Body Mass Index 25.0 <Aidan Clemons MD - Last Filed: 08/15/22 20:39> Appearance: Alert. Oriented X3. No acute distress. Eyes: PERRLA, No Nystagmus ENT: Pharynx normal. Oral Mucosa moist Neck: Normal inspection. Neck supple. CVS: Normal heart rate and rhythm. Pulses normal. systolic ejection murmur at base Respiratory: No respiratory distress. Equal air entry bilateral, no wheezing/rales/rhonchi Abdomen: Soft and nontender. Bowel sounds are present, no mass palpable, no CVA tenderness Skin: Skin warm and dry. Normal skin color. Normal skin turgor. Extremities: No lower extremity edema. No calf tenderness Neuro: Oriented X 3. No motor deficit. <Aidan Clemons MD - Last Filed: 08/15/22 20:39> Course Course Course Narrative: RME - 61 y/o male presents to the ER for evaluation of cold symptoms for a week and a half, along with concerns of dehydration due to increased urinary frequency. Reports dysuria. Poor historian. Seen here 07/25 for confusion, possible early onset dementia after unremarkable workup. Seen at Urgent Care today - was reporting dizziness and blurred vision and told to come to the ER for further evaluation. BP 199/120 in triage, not on BP meds. Will need labs, EKG, UA for further evaluation. <CRISTY Goldstein - Last Filed: 08/15/22 13:02> Reevaluation(s) Reevaluation #1: patient's blood pressure continued to be elevated added clonidine 0.1 mg blood pressure now is 150/104 will discharge the patient home on amlodipine and lisinopril <Aidan Clemons MD - Last Filed: 08/15/22 20:39> Time: 20:22 <Aidan Clemons MD - Last Filed: 08/15/22 20:39> Medications Administered Discontinued Medications Generic Name Dose Route Start Last Admin Trade Name Freq PRN Reason Stop Dose Admin Amlodipine Besylate 5 mg 08/15/22 17:53 08/15/22 17:58 Amlodipine Besylate 5 Mg Tablet PO 08/15/22 17:54 5 mg ONCE ONE Administration Protocol Clonidine HCl 0.1 mg 08/15/22 18:58 08/15/22 19:55 Clonidine Hcl 0.1 Mg Tablet PO 08/15/22 18:59 0.1 mg ONCE ONE Administration Protocol Lisinopril 20 mg 08/15/22 16:49 08/15/22 17:05 Lisinopril 20 Mg Tablet PO 08/15/22 16:50 20 mg ONCE ONE Administration Protocol <CRISTY Goldstein - Last Filed: 08/15/22 13:02> Medications Administered Discontinued Medications Generic Name Dose Route Start Last Admin Trade Name Freq PRN Reason Stop Dose Admin Amlodipine Besylate 5 mg 08/15/22 17:53 08/15/22 17:58 Amlodipine Besylate 5 Mg Tablet PO 08/15/22 17:54 5 mg ONCE ONE Administration Protocol Clonidine HCl 0.1 mg 08/15/22 18:58 08/15/22 19:55 Clonidine Hcl 0.1 Mg Tablet PO 08/15/22 18:59 0.1 mg ONCE ONE Administration Protocol Lisinopril 20 mg 08/15/22 16:49 08/15/22 17:05 Lisinopril 20 Mg Tablet PO 08/15/22 16:50 20 mg ONCE ONE Administration Protocol <Aidan Clemons MD - Last Filed: 08/15/22 20:39> Medical Decision Making Medical Decision Making [facility] Narrative: patient with accelerated hypertension seems like patient has chronic hypertension not been diagnosed or taken any medication. Post voidal volume is only 60 cc. Patient advised to follow with PCP will start patient on lisinopril Blood pressure stayed high to 180/106 will add amlodipine. <Aidan Clemons MD - Last Filed: 08/15/22 20:39> Lab Data [facility] Lab Attestation statement: I reviewed the patient's lab results. <Aidan Clemons MD - Last Filed: 08/15/22 20:39> Result Diagrams: 08/15/22 13:18 08/15/22 13:17 <CRISTY Goldstein - Last Filed: 08/15/22 13:02> Labs: Lab Results 08/15/22 08/15/22 08/15/22 Range/Units 13:17 13:17 13:17 WBC (4.8-10.8) X10*3/uL RBC (4.60-5.80) X10*6/uL Hgb (14.0-18.0) g/dl Hct (42.0-52.0) % MCV (80.0-98.0) fL MCH (27.0-33.0) pg MCHC (31.0-36.0) g/dl RDW (11.0-16.0) % Plt Count (160-400) X10*3/uL MPV (9.4-12.4) fL Immature Gran % (Auto) (0.0-0.4) % Neut % (Auto) (45-73) % Lymph % (Auto) (20-40) % [place] % (Auto) (2-11) % Eos % (Auto) (0-4) % Baso % (Auto) (0-2) % Lymph # (Auto) (1.2-4.9) X10*3/uL [place] # (Auto) (0.1-1.2) X10*3/uL Eos # (Auto) (0.0-0.4) X10*3/uL Baso # (Auto) (0.0-0.2) X10*3/uL Abs Immat Gran (auto) (0.00-0.03) X10*3/uL Absolute Neuts (auto) (2.0-8.3) x10*3/uL Absolute Nucleated RBC (0.0-0.012) X10*3/uL Nucleated RBC % (auto) (0.0-0.2) /100WBC Sodium 141 (135-145) mmol/L Potassium 4.0 (3.3-5.1) mmol/L Chloride 106 (96-108) mmol/L Carbon Dioxide 28 (22-29) mmol/L Anion Gap 11 L (12-20) BUN 10 (9-16) mg/dL Creatinine 0.81 (0.5-1.4) mg/dL Estim Creat Clear Calc 90.6 Estimated GFR > 60 Random Glucose 101 (60-115) mg/dL Calcium 9.0 (8.4-10.2) mg/dL Magnesium 1.9 (1.6-2.6) mg/dL Total Bilirubin 0.4 (0.0-1.0) mg/dL Direct Bilirubin < 0.2 (0.0-0.5) mg/dL AST 14 (5-37) U/L ALT 14 (0-40) U/L Alkaline Phosphatase 73 (39-117) U/L Troponin I High Sens < 3.5 (<3.5-35.0) ng/L Total Protein 7.0 (6.5-8.0) g/dL Albumin 4.2 (3.5-5.0) g/dL Urine Color Urine Appearance Urine pH (5.0-9.0) Ur Specific [place] (1.005-1.025) Urine Protein (Neg-Trace) mg/dL Urine Glucose (UA) (Negative) mg/dL Urine Ketones (Negative) mg/dL Urine Blood (Negative) Urine Nitrite (Negative) Ur Leukocyte Esterase (Negative) Urine RBC (0-2) /HPF Urine WBC (0-5) /HPF Ur Squamous Epith Cells (0-2) /HPF Urine Bacteria (None Seen) Hyaline Casts (0-2) /LPF Influenza Type A (PCR) NEGATIVE (Negative) Influenza Type B (PCR) NEGATIVE (Negative) RSV RNA Qual (PCR) NEGATIVE (Negative) SARS-CoV-2 RNA (RT-PCR) NEGATIVE (Negative) 08/15/22 08/15/22 Range/Units 13:17 13:18 WBC 3.3 L (4.8-10.8) X10*3/uL RBC 5.68 (4.60-5.80) X10*6/uL Hgb 15.8 (14.0-18.0) g/dl Hct 47.5 (42.0-52.0) % MCV 83.6 (80.0-98.0) fL MCH 27.8 (27.0-33.0) pg MCHC 33.3 (31.0-36.0) g/dl RDW 15.3 (11.0-16.0) % Plt Count 241 D (160-400) X10*3/uL MPV 9.2 L (9.4-12.4) fL Immature Gran % (Auto) 0.3 (0.0-0.4) % Neut % (Auto) 50.3 (45-73) % Lymph % (Auto) 32.9 (20-40) % [place] % (Auto) 13.5 H (2-11) % Eos % (Auto) 1.5 (0-4) % Baso % (Auto) 1.5 (0-2) % Lymph # (Auto) 1.1 L (1.2-4.9) X10*3/uL [place] # (Auto) 0.4 (0.1-1.2) X10*3/uL Eos # (Auto) 0.1 (0.0-0.4) X10*3/uL Baso # (Auto) 0.1 (0.0-0.2) X10*3/uL Abs Immat Gran (auto) 0.01 (0.00-0.03) X10*3/uL Absolute Neuts (auto) 1.6 L (2.0-8.3) x10*3/uL Absolute Nucleated RBC 0.000 (0.0-0.012) X10*3/uL Nucleated RBC % (auto) 0.0 (0.0-0.2) /100WBC Sodium (135-145) mmol/L Potassium (3.3-5.1) mmol/L Chloride (96-108) mmol/L Carbon Dioxide (22-29) mmol/L Anion Gap (12-20) BUN (9-16) mg/dL Creatinine (0.5-1.4) mg/dL Estim Creat Clear Calc Estimated GFR Random Glucose (60-115) mg/dL Calcium (8.4-10.2) mg/dL Magnesium (1.6-2.6) mg/dL Total Bilirubin (0.0-1.0) mg/dL Direct Bilirubin (0.0-0.5) mg/dL AST (5-37) U/L ALT (0-40) U/L Alkaline Phosphatase (39-117) U/L Troponin I High Sens (<3.5-35.0) ng/L Total Protein (6.5-8.0) g/dL Albumin (3.5-5.0) g/dL Urine Color Yellow Urine Appearance Clear Urine pH 7.0 (5.0-9.0) Ur Specific [place] 1.015 (1.005-1.025) Urine Protein Negative (Neg-Trace) mg/dL Urine Glucose (UA) Negative (Negative) mg/dL Urine Ketones Negative (Negative) mg/dL Urine Blood Negative (Negative) Urine Nitrite Negative (Negative) Ur Leukocyte Esterase Trace H (Negative) Urine RBC 0-2 (0-2) /HPF Urine WBC 0-5 (0-5) /HPF Ur Squamous Epith Cells 0-2 (0-2) /HPF Urine Bacteria None Seen (None Seen) Hyaline Casts 0-2 (0-2) /LPF Influenza Type A (PCR) (Negative) Influenza Type B (PCR) (Negative) RSV RNA Qual (PCR) (Negative) SARS-CoV-2 RNA (RT-PCR) (Negative) <CRISTY Goldstein - Last Filed: 08/15/22 13:02> Lab Results 08/15/22 08/15/22 08/15/22 Range/Units 13:17 13:17 13:17 WBC (4.8-10.8) X10*3/uL RBC (4.60-5.80) X10*6/uL Hgb (14.0-18.0) g/dl Hct (42.0-52.0) % MCV (80.0-98.0) fL MCH (27.0-33.0) pg MCHC (31.0-36.0) g/dl RDW (11.0-16.0) % Plt Count (160-400) X10*3/uL MPV (9.4-12.4) fL Immature Gran % (Auto) (0.0-0.4) % Neut % (Auto) (45-73) % Lymph % (Auto) (20-40) % [place] % (Auto) (2-11) % Eos % (Auto) (0-4) % Baso % (Auto) (0-2) % Lymph # (Auto) (1.2-4.9) X10*3/uL [place] # (Auto) (0.1-1.2) X10*3/uL Eos # (Auto) (0.0-0.4) X10*3/uL Baso # (Auto) (0.0-0.2) X10*3/uL Abs Immat Gran (auto) (0.00-0.03) X10*3/uL Absolute Neuts (auto) (2.0-8.3) x10*3/uL Absolute Nucleated RBC (0.0-0.012) X10*3/uL Nucleated RBC % (auto) (0.0-0.2) /100WBC Sodium 141 (135-145) mmol/L Potassium 4.0 (3.3-5.1) mmol/L Chloride 106 (96-108) mmol/L Carbon Dioxide 28 (22-29) mmol/L Anion Gap 11 L (12-20) BUN 10 (9-16) mg/dL Creatinine 0.81 (0.5-1.4) mg/dL Estim Creat Clear Calc 90.6 Estimated GFR > 60 Random Glucose 101 (60-115) mg/dL Calcium 9.0 (8.4-10.2) mg/dL Magnesium 1.9 (1.6-2.6) mg/dL Total Bilirubin 0.4 (0.0-1.0) mg/dL Direct Bilirubin < 0.2 (0.0-0.5) mg/dL AST 14 (5-37) U/L ALT 14 (0-40) U/L Alkaline Phosphatase 73 (39-117) U/L Troponin I High Sens < 3.5 (<3.5-35.0) ng/L Total Protein 7.0 (6.5-8.0) g/dL Albumin 4.2 (3.5-5.0) g/dL Urine Color Urine Appearance Urine pH (5.0-9.0) Ur Specific [place] (1.005-1.025) Urine Protein (Neg-Trace) mg/dL Urine Glucose (UA) (Negative) mg/dL Urine Ketones (Negative) mg/dL Urine Blood (Negative) Urine Nitrite (Negative) Ur Leukocyte Esterase (Negative) Urine RBC (0-2) /HPF Urine WBC (0-5) /HPF Ur Squamous Epith Cells (0-2) /HPF Urine Bacteria (None Seen) Hyaline Casts (0-2) /LPF Influenza Type A (PCR) NEGATIVE (Negative) Influenza Type B (PCR) NEGATIVE (Negative) RSV RNA Qual (PCR) NEGATIVE (Negative) SARS-CoV-2 RNA (RT-PCR) NEGATIVE (Negative) 08/15/22 08/15/22 Range/Units 13:17 13:18 WBC 3.3 L (4.8-10.8) X10*3/uL RBC 5.68 (4.60-5.80) X10*6/uL Hgb 15.8 (14.0-18.0) g/dl Hct 47.5 (42.0-52.0) % MCV 83.6 (80.0-98.0) fL MCH 27.8 (27.0-33.0) pg MCHC 33.3 (31.0-36.0) g/dl RDW 15.3 (11.0-16.0) % Plt Count 241 D (160-400) X10*3/uL MPV 9.2 L (9.4-12.4) fL Immature Gran % (Auto) 0.3 (0.0-0.4) % Neut % (Auto) 50.3 (45-73) % Lymph % (Auto) 32.9 (20-40) % [place] % (Auto) 13.5 H (2-11) % Eos % (Auto) 1.5 (0-4) % Baso % (Auto) 1.5 (0-2) % Lymph # (Auto) 1.1 L (1.2-4.9) X10*3/uL [place] # (Auto) 0.4 (0.1-1.2) X10*3/uL Eos # (Auto) 0.1 (0.0-0.4) X10*3/uL Baso # (Auto) 0.1 (0.0-0.2) X10*3/uL Abs Immat Gran (auto) 0.01 (0.00-0.03) X10*3/uL Absolute Neuts (auto) 1.6 L (2.0-8.3) x10*3/uL Absolute Nucleated RBC 0.000 (0.0-0.012) X10*3/uL Nucleated RBC % (auto) 0.0 (0.0-0.2) /100WBC Sodium (135-145) mmol/L Potassium (3.3-5.1) mmol/L Chloride (96-108) mmol/L Carbon Dioxide (22-29) mmol/L Anion Gap (12-20) BUN (9-16) mg/dL Creatinine (0.5-1.4) mg/dL Estim Creat Clear Calc Estimated GFR Random Glucose (60-115) mg/dL Calcium (8.4-10.2) mg/dL Magnesium (1.6-2.6) mg/dL Total Bilirubin (0.0-1.0) mg/dL Direct Bilirubin (0.0-0.5) mg/dL AST (5-37) U/L ALT (0-40) U/L Alkaline Phosphatase (39-117) U/L Troponin I High Sens (<3.5-35.0) ng/L Total Protein (6.5-8.0) g/dL Albumin (3.5-5.0) g/dL Urine Color Yellow Urine Appearance Clear Urine pH 7.0 (5.0-9.0) Ur Specific [place] 1.015 (1.005-1.025) Urine Protein Negative (Neg-Trace) mg/dL Urine Glucose (UA) Negative (Negative) mg/dL Urine Ketones Negative (Negative) mg/dL Urine Blood Negative (Negative) Urine Nitrite Negative (Negative) Ur Leukocyte Esterase Trace H (Negative) Urine RBC 0-2 (0-2) /HPF Urine WBC 0-5 (0-5) /HPF Ur Squamous Epith Cells 0-2 (0-2) /HPF Urine Bacteria None Seen (None Seen) Hyaline Casts 0-2 (0-2) /LPF Influenza Type A (PCR) (Negative) Influenza Type B (PCR) (Negative) RSV RNA Qual (PCR) (Negative) SARS-CoV-2 RNA (RT-PCR) (Negative) <Aidan Clemons MD - Last Filed: 08/15/22 20:39> Independent Interpretation I performed an independent interpretation of an: EKG <Aidan Clemons MD - Last Filed: 08/15/22 20:39> Interpretation: normal sinus rhythm heart rate 65 beats per minute left axis deviation LVH no acute ST wave changes no acute ischemia <Aidan Clemons MD - Last Filed: 08/15/22 20:39> Discharge Plan Discharge Clinical Impression: Hypertension <CRISTY Goldstein - Last Filed: 08/15/22 13:02> Patient Disposition: Home, Self-Care <CRISTY Goldstein - Last Filed: 08/15/22 13:02> Instructions: Hypertension (ED) <CRISTY Goldstein - Last Filed: 08/15/22 13:02> Additional Instructions: check blood pressure twice daily should be less than 135/85 take medication for high blood pressure as prescribed make an appointment with PCP to be evaluated in 2 weeks <CRISTY Goldstein - Last Filed: 08/15/22 13:02> Prescriptions: New amlodipine 5 mg tablet 5 mg PO DAILY Qty: 90 0RF lisinopril 20 mg tablet 20 mg PO DAILY Qty: 90 0RF <CRISTY Goldstein - Last Filed: 08/15/22 13:02> Referrals: Maribeth Talamantes MD [Physician] - 2 weeks <CRISTY Goldstein - Last Filed: 08/15/22 13:02> Interventions: ED Discharge Assessment Last Done: 08/15/22 20:35 <CRISTY Goldstein - Last Filed: 08/15/22 13:02> Discharge Date/Time: 08/15/22 20:37 <CRISTY Goldstein - Last Filed: 08/15/22 13:02>
[2022-08-15 12:56] VITALS: BP 199/120; PULSE 65; RESP 18; TEMP 37.1; O2SAT 98; BMI 25.0
--- NOTE | 2022-08-15 13:00 | ECG_ITS ---
Test Reason : dizziness Blood Pressure : / mmHG Vent. Rate : 065 BPM Atrial Rate : 065 BPM P-R Int : 136 ms QRS Dur : 090 ms QT Int : 396 ms P-R-T Axes : 060 -36 -14 degrees QTc Int : 411 ms Normal sinus rhythm Left axis deviation Minimal voltage criteria for LVH, may be normal variant ( Jim product ) Abnormal ECG When compared to the previous EKG of No significant changes seen Referred By: Kristel Dockery Electronically Signed By:Arthur Diaz
[2022-08-15 13:24] LABS: MANUAL DIFF FLAG NO
[2022-08-15 13:26] LABS: Basophils Absolute Auto 0.1 X10*3/uL (0.0-0.2); Basophils Percent Auto 1.5 % (0-2); Eosinophils Absolute Auto 0.1 X10*3/uL (0.0-0.4); Eosinophils Percent Auto 1.5 % (0-4); Hematocrit 47.5 % (42.0-52.0); Hemoglobin 15.8 g/dl (14.0-18.0); Imm Gran Abs Auto 0.01 X10*3/uL (0.00-0.03); Imm Gran Pct Auto 0.3 % (0.0-0.4); Lymphocytes Absolute Auto 1.1 X10*3/uL (1.2-4.9); Lymphocytes Percent Auto 32.9 % (20-40); Mean Corpuscular HGB Conc 33.3 g/dl (31.0-36.0); Mean Corpuscular Hemoglobin 27.8 pg (27.0-33.0); Mean Corpuscular Volume 83.6 fL (80.0-98.0); Mean Platelet Volume 9.2 fL (9.4-12.4); Monocytes Absolute Auto 0.4 X10*3/uL (0.1-1.2); Monocytes Percent Auto 13.5 % (2-11); Neutrophils Absolute Auto 1.6 x10*3/uL (2.0-8.3); Neutrophils Percent Auto 50.3 % (45-73); Platelet Count 241 X10*3/uL (160-400); Red Blood Count 5.68 X10*6/uL (4.60-5.80); Red Cell Distribution Width 15.3 % (11.0-16.0); White Blood Count 3.3 X10*3/uL (4.8-10.8)
[2022-08-15 13:32] LABS: Appearance Urine Clear; Color Urine Yellow; Glucose Urine UA Negative (Negative); Leukocyte Esterase Urine Trace (Negative); Nitrite Urine Negative (Negative); Specific Gravity - Urine 1.015 (1.005-1.025); UMIC TRIGGER UACC YES; Urine Blood Negative (Negative); Urine Ketones Negative (Negative); Urine Protein Negative (Neg-Trace)
[2022-08-15 13:37] LABS: Bacteria Urine None Seen (None Seen); Hyaline Casts Urine 0-2 /LPF (0-2); RBC Urine 0-2 /HPF (0-2); Squamous Epithelial Cell Urine 0-2 /HPF (0-2); WBC Urine 0-5 /HPF (0-5)
[2022-08-15 13:43] LABS: Alanine Aminotransferase 14 U/L (0-40); Albumin Level 4.2 g/dL (3.5-5.0); Alkaline Phosphatase 73 U/L (39-117); Anion Gap 11 (12-20); Aspartate Amino Transferase 14 U/L (5-37); Bilirubin Direct < 0.2 mg/dL (0.0-0.5); Bilirubin Total 0.4 mg/dL (0.0-1.0); Blood Urea Nitrogen 10 mg/dL (9-16); Carbon Dioxide 28 mmol/L (22-29); Chloride 106 mmol/L (96-108); Creatinine Clr Calc Pharmacy 90.6; Estimated Glomerular Filt Rate > 60; Glucose Random 101 mg/dL (60-115); Magnesium 1.9 mg/dL (1.6-2.6); Sodium 141 mmol/L (135-145)
[2022-08-15 13:55] LABS: Troponin-I High Sensitivity < 3.5 ng/L (<3.5-35.0)
[2022-08-15 14:09] LABS: Influenza A PCR NEGATIVE (Negative); Influenza B PCR NEGATIVE (Negative); Resp Syncy Virus RNA Qual PCR NEGATIVE (Negative); SARS COV2 PCR INHOUSE NEGATIVE (Negative)
[2022-08-15 16:47] VITALS: BP 191/112; PULSE 68; RESP 18
[2022-08-15] MEDS: lisinopriL 20 MG TABLET PO (17:05)
[2022-08-15] MEDS: amLODIPine Besylate 5 MG TABLET PO (17:58)
[2022-08-15 17:59] VITALS: BP 182/106; PULSE 65; RESP 18
[2022-08-15 18:05] VITALS: BP 189/115; PULSE 60; RESP 18; TEMP 37.1; O2SAT 96
[2022-08-15 19:55] VITALS: BP 164/103; PULSE 59
[2022-08-15] MEDS: cloNIDine HCL 0.1 MG TABLET PO (19:55)
[2022-08-15 20:00] VITALS: BP 161/100; PULSE 61; RESP 13; TEMP 36.6; O2SAT 98
== END 2022-08-15 20:37 | disposition home or self-care (01) ==
PROVIDERS: Physician Assistant; Emergency Provider Internal Medicine; PCP Nurse Practitioner Family
DX: I10 Essential (primary) hypertension (principal); R51.9 Headache, unspecified; R35.0 Frequency of micturition; Z20.822 Contact with and (suspected) exposure to COVID-19; Z20.828 Contact with and (suspected) exposure to other viral communicable diseases
CPT/HCPCS: 0241U; 36415; 51798; 80048; 80076; 81001; 83735; 84484; 85025; 93005; 99283; 99285

== ENCOUNTER 2022-10-19 07:54 | Outpatient (REF) | payer OTHER, SELFPAY ==
[2022-10-19 08:07] LABS: MANUAL DIFF FLAG NO
[2022-10-19 08:45] LABS: Basophils Absolute Auto 0.1 X10*3/uL (0.0-0.2); Basophils Percent Auto 1.8 % (0-2); Eosinophils Absolute Auto 0.2 X10*3/uL (0.0-0.4); Eosinophils Percent Auto 4.5 % (0-4); Hematocrit 46.7 % (42.0-52.0); Hemoglobin 15.1 g/dl (14.0-18.0); Lymphocytes Absolute Auto 1.4 X10*3/uL (1.2-4.9); Lymphocytes Percent Auto 41.8 % (20-40); Mean Corpuscular HGB Conc 32.3 g/dl (31.0-36.0); Mean Corpuscular Hemoglobin 27.5 pg (27.0-33.0); Mean Corpuscular Volume 85.1 fL (80.0-98.0); Mean Platelet Volume 9.4 fL (9.4-12.4); Monocytes Absolute Auto 0.5 X10*3/uL (0.1-1.2); Monocytes Percent Auto 15.2 % (2-11); Neutrophils Absolute Auto 1.2 x10*3/uL (2.0-8.3); Neutrophils Percent Auto 36.7 % (45-73); Platelet Count 281 X10*3/uL (160-400); Red Blood Count 5.49 X10*6/uL (4.60-5.80); Red Cell Distribution Width 15.5 % (11.0-16.0); White Blood Count 3.4 X10*3/uL (4.8-10.8)
[2022-10-19 09:26] LABS: Alanine Aminotransferase 14 U/L (0-40); Albumin Level 4.2 g/dL (3.5-5.0); Alkaline Phosphatase 67 U/L (39-117); Anion Gap 11 (12-20); Aspartate Amino Transferase 16 U/L (5-37); Bilirubin Total 0.8 mg/dL (0.0-1.0); Blood Urea Nitrogen 13 mg/dL (9-16); Calcium 9.3 mg/dL (8.4-10.2); Carbon Dioxide 30 mmol/L (22-29); Chloride 105 mmol/L (96-108); Cholesterol 161 mg/dL; Estimated Glomerular Filt Rate > 60; Glucose Random 106 mg/dL (60-115); HDL Cholesterol 34 mg/dL; LDL Cholesterol Calculated 109 mg/dl; Potassium 4.1 mmol/L (3.3-5.1); Sodium 142 mmol/L (135-145); Total Protein 7.1 g/dL (6.5-8.0); Triglycerides 91 mg/dL
[2022-10-19 09:45] LABS: PSA,Total (Free>4and<10) 3.04 ng/mL (0.00-4.00); Vitamin D 25-OH Total 21.1 ng/mL (>30)
== END 2022-10-19 07:55 | disposition home or self-care (01) ==
LOC: HO.LAB 07:54
PROVIDERS: PCP Nurse Practitioner Family; Visit Provider Nurse Practitioner Family
DX: Z13.21 Encounter for screening for nutritional disorder (principal); Z13.220 Encounter for screening for lipoid disorders; Z13.29 Encounter for screening for other suspected endocrine disorder; Z12.5 Encounter for screening for malignant neoplasm of prostate; Z13.0 Encounter for screening for diseases of the blood and blood-forming organs and certain disorders involving the immune mechanism; I10 Essential (primary) hypertension
CPT/HCPCS: 36415; 80053; 80061; 82306; 84153; 84443; 85025

== ENCOUNTER 2022-12-22 18:27 | Outpatient (REF) | payer OTHER, SELFPAY ==
--- NOTE | ~2022-12-22 | MR_ITS ---
EXAMINATION: MR BRAIN WITHOUT CONTRAST CLINICAL INFORMATION: Headaches. COMPARISON: Head CT dated 07/27/2022. TECHNIQUE: Multiplanar, multisequence imaging of the brain was performed without contrast. FINDINGS: No diffusion abnormalities are identified to suggest an acute infarct. The ventricles are normal in size. No mass effect or midline shift is seen. Mild scattered white matter signal changes are nonspecific and may be due to chronic microangiopathy. No extra-axial fluid collections are seen. The brainstem is normal. The right cerebellar tonsil is mildly low-lying in position, approximately 7 mm caudal to level of foramen magnum. The gradient refocused acquisition is normal. The craniovertebral junction, marrow signal, and midline structures are normal. The major intracranial flow voids at the level of the [place] are preserved. The dural venous sinus flow voids are maintained. There is a small retention cyst in the dependent right maxillary sinus and [id number] ethmoid sinus mucosal thickening bilaterally. The mastoid air cells are well aerated. MR/MR head/brain wo con IMPRESSION: No acute intracranial process. Scattered mild white matter signal changes which may be due to chronic microangiopathy. Mildly low-lying right cerebellar tonsil which may signify a Chiari I malformation. Correlate for any symptoms of idiopathic intracranial hypotension which can result in similar imaging findings; query for any history of positional headaches.
== END 2022-12-22 18:28 | disposition home or self-care (01) ==
LOC: HO.MRI 18:27
PROVIDERS: PCP Nurse Practitioner Family; Visit Provider Nurse Practitioner Family
DX: R51.9 Headache, unspecified (principal); R68.89 Other general symptoms and signs
CPT/HCPCS: 70551

== ENCOUNTER → 2022-12-29 13:09 | Outpatient (BNVA) | payer OTHER, SELFPAY | PROVIDERS: Visit Provider Physician Assistant | DX: Z12.11 Encounter for screening for malignant neoplasm of colon (principal); Z80.0 Family history of malignant neoplasm of digestive organs | CPT/HCPCS: 99202 ==

== ENCOUNTER 2023-03-09 09:10 | Outpatient (AMB) | payer OTHER, SELFPAY ==
--- NOTE | 2023-03-09 09:20 | MHC.PC.OV ---
Vital Signs 03/09/23 09:22 Height 5 ft 7 in Weight 161 lb 2 oz BMI 25.2 BP 132/80 Blood Pressure Location Lt brachial Position Sitting Pulse 75 Pulse Source Pulse Oximeter Pulse Oximetry (%) 98 Oxygen Delivery Method Room Air Intake Visit Reasons: HTN, Forgetfullness Intake Note: Patient is here to follow up on HTN, Forgetfullness. 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 Accompanied by: Spouse Allergies No Known Allergies Allergy (Verified 03/09/23 09:36) Medication List - Last Reconciled 03/09/23 by JS Herrmann amlodipine 5 mg PO DAILY bisacodyl (Dulcolax (bisacodyl)) 20 mg (4 x 5 mg) PO ONCE 1 day cholecalciferol (vitamin D3) (Vitamin D3) 25 mcg PO DAILY lisinopril 20 mg PO DAILY polyethylene glycol 3350 (Miralax) 238 grams PO ONCE 1 day Tobacco use date assessed: 03/09/23 Dental Screening Dental Screen Date: 03/09/23 Did you have a dental visit in the last 12 months?: Yes Did you have a dental problem in the last 6 months where you did not have access to dental care?: No Was dental information given to patient?: Patient has dentist HPI HPI Comments History of Present Illness Details 62-year-old male past medical history significant for hypertension, vitamin-D deficiency, forgetfulness and headaches. Patient presents today for follow-up visit. Patient reports that his headaches have improved, states he only gets them once in a while. Patient cannot recall the last time he had a headache. Patient also reports occasional dysuria and concentrated urine, patient reports unable to give urine sample in office today. Urinalysis with reflex culture ordered. Patient has upcoming appointment scheduled with Neurology on 03/24/2023 for headaches and forgetfulness. MRI completed in December noted below. IMPRESSION: No acute intracranial process. Scattered mild white matter signal changes which may be due to chronic microangiopathy. Mildly low-lying right cerebellar tonsil which may signify a Chiari I malformation. Correlate for any symptoms of idiopathic intracranial hypotension which can result in similar imaging findings; query for any history of positional headaches. [facility] Medical History (Updated 12/29/22 @ 13:35 by Melanie Dietz PA-C) Forgetfulness Hypertension Surgical History (Updated 03/09/23 @ 09:28 by KANA Bess) No pertinent past surgical history Family History (Updated 03/09/23 @ 09:21 by KANA Bess) Mother Dementia Father Colon cancer Social History Housing: House Alcohol intake: never Patient Tobacco Use Status: Never used Tobacco e-Cigarette/Vaping Use: Never Used Second Hand Smoke Exposure: No service: No Current occupational status: employed Cognitive needs: No Hearing needs: No Vision needs: No Questionnaire Thrive Questionnaire Date Thrive assessed: 09/15/22 SAVITA-7 AMB Questionnaire SAVITA-7 Date SAVITA - 7 assessed: 12/01/22 Source: Developed by Drs. Gonzales Dennison, Kary Herrera, Adalberto Duarte and colleagues, with an educational bj from [employer]. Review of Systems Const Denies chills, Denies fatigue, Denies fever(s) and Denies poor appetite Eyes Denies no additional complaints ENT Reports Normal hearing present Card Denies chest pain, Denies syncope, Denies rapid heart rate and Denies dyspnea Resp Denies cough and Denies dyspnea GI Denies change in stool character, Denies constipation, Denies diarrhea, Denies nausea and Denies vomiting Denies dysuria, Denies urinary frequency and Denies urinary urgency Neuro Reports Normal hearing present and Denies syncope Endo Denies fatigue Physical exam (Primary Care) Vital Signs: Last Vital Signs Pulse 75 03/09/23 09:22 BP 132/80 03/09/23 09:22 Pulse Ox 98 03/09/23 09:22 Oxygen Delivery Method Room Air 03/09/23 09:22 BMI result Body Mass Index 25.2 Tobacco/Smoking Status: Tobacco use Status Tobacco use date assessed 03/09/23 03/09/23 09:29 Patient Tobacco Use Status Never used Tobacco 03/09/23 09:29 Tobacco use type 03/09/23 09:29 e-Cigarette/Vaping Use Never Used 03/09/23 09:29 Thrive Assessment: Date of Thrive Assessment Date Thrive assessed 09/15/22 03/09/23 09:29 Const General: cooperative and no acute distress Orientation/consciousness: patient oriented x3 HENMT Head: Yes normocephalic and Yes atraumatic Eyes Conjunctivae: conjunctivae normal Chest Chest palpation & inspection: normal inspection of the chest Resp Effort & Inspection: normal respiratory effort Auscultation: clear to auscultation bilaterally, no crackles, no rhonchi and no wheezes Cardio Rate: regular rate Rhythm: regular rhythm Heart sounds: S1 normal heart sound present and S2 normal heart sound present GI Inspection: Yes normal to inspection Neuro General: patient oriented x3 Cranial nerves: Yes Normal hearing present Extrem General: No edema Assessment and Plan Assessment & Plan (1) Frequency of urination: Code(s): R35.0 - Frequency of micturition Plan: Given patient unable to give urine sample in office today, Urinalysis with reflex culture ordered. (2) Hypertension: Code(s): I10 - Essential (primary) hypertension Plan: Continue on lisinopril 20 mg daily and amlodipine 5 mg daily. Follow low-salt diet and exercise. Blood pressure goal less than 140/90. (3) Forgetfulness: Code(s): R68.89 - Other general symptoms and signs Plan: Keep scheduled appointment with Neurology 03/24/2023. Plan Follow-up in 3 months. Orders: Orders Comprehensive [place]. Panel Fast Today I10 - Essential (primary) hypertension Lipid Panel Today Z13.220 - Encounter for screening for lipoid disorders UA CC w/rflx Micro + Cult Today R35.0 - Frequency of micturition Coding Level of Care Code Est Pt Level 3 (60888) Diagnoses Frequency of urination R35.0 Hypertension I10 Forgetfulness R68.89
[2023-03-09 09:22] VITALS: BP 132/80; PULSE 75; O2SAT 98; BMI 25.2
== END 2023-03-09 09:54 | disposition home or self-care (01) ==
PROVIDERS: PCP Nurse Practitioner Family; Visit Provider Nurse Practitioner Family
DX: R35.0 Frequency of micturition (principal); I10 Essential (primary) hypertension; R68.89 Other general symptoms and signs
CPT/HCPCS: 99213

== ENCOUNTER 2023-03-24 10:02 | Outpatient (AMB) | payer OTHER, SELFPAY ==
--- NOTE | 2023-03-24 10:05 | A.OFFVIS_ITS ---
Intake Vital Signs 03/24/23 10:10 Height 5 ft 7 in Weight 161 lb BMI 25.2 BP 142/84 H Blood Pressure Location Lt brachial Position Sitting Intake Visit Reasons: [employer]: Headaches unspecified-Confirmed Intake Note: Patient presents for headaches. Patient states He's getting headaches and he forgets a lot of things,the headaches are once in a while not all the time. Allergies No Known Allergies Allergy (Verified 03/24/23 10:12) Medication List - Last Reconciled 03/24/23 by JS Rao amlodipine 5 mg PO DAILY bisacodyl (Dulcolax (bisacodyl)) 20 mg (4 x 5 mg) PO ONCE 1 day cholecalciferol (vitamin D3) (Vitamin D3) 25 mcg PO DAILY lisinopril 20 mg PO DAILY polyethylene glycol 3350 (Miralax) 238 grams PO ONCE 1 day HPI HPI Comments History of Present Illness Details Right-handed 62-yr-old male presents for new pt evaluation of headache disorder and forgetfulness. Pt is accompanied by his , Quin. PMH: HTN. Pt has difficulty relaying history, his helps. It is unclear how long pt has had headcahes or if they are improving or worsening in any meaningful capacity. Typical headache characteristics: Prodrome symptoms? Unsure Aura? Unsure Location, quality, characteristics? Head pain Pain intensity? He cannot say Associated symptoms? phonophobia, photophobia, nausea, activity intolerance Focal weakness, Parethesias, Autonomic s/s? unsure Postdrome? unsure Triggers? heat, weather Any positional, valsalva, exertional, sexual activity triggers? sometimes if he picks something up that is heavy Time of day? in the afternoon Duration? varies, may last all day Frequency? varies- maybe 3 headache days per week How does headache impact your life? has to lay down Current acute medication use/interventions: Naproxen 220mg or Advil 200mg- seems to help. Previous acute medication use: None Current preventative medication use: None Previous preventative medication use: None Non-pharmacological interventions: Rest, may use ice Regarding memory issues: His reports that pt has had increased memory loss over the past 9 months. He had an episode where he thought he was not in his own home, could not remember the rooms in his house. At that time, she brought him to the ER- work- up including head imaging was unremarkable. reports that a year ago, pt would have been able to relay his personal history w/o difficulty. Pt is Ind w/ ADLs, but monitors him. manages the cooking. Pt used to cook, but has left the stove on. manages the finances. Pt does drive. His reports that pt talks, yells, kicks, punches. He has never left the bed, It is unclear when this started. Pt was born in [place], and moved to the [facility] at approx age 17. He co mpleted 7th grade. He thinks he was average student. states he was always a poor speller. After he left school, he started working. 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 It is unclear if he worked for someone or for himself. His mother from dementia at age 76-77 yo, starting showing dementia s/s in her mid-60s. He has 15 brothers and sisters. His older brother is in currently in a senior living d/t dementia. One brother from an injury. 12/22/22, MR/MR head/brain wo con IMPRESSION: No acute intracranial process. Scattered mild white matter signal changes which may be due to chronic microangiopathy. Mildly low-lying right cerebellar tonsil which may signify a Chiari I malformation. Correlate for any symptoms of idiopathic intracranial hypotension which can result in similar imaging findings; query for any history of positional headaches. [facility] Medical History (Updated 03/24/23 @ 16:33 by JS Rao) Forgetfulness Hypertension Surgical History No pertinent past surgical history Family History Mother Dementia Father Colon cancer Social History Housing: House Alcohol intake: never Patient Tobacco Use Status: Never used Tobacco e-Cigarette/Vaping Use: Never Used Second Hand Smoke Exposure: No service: No Current occupational status: employed Cognitive needs: No Hearing needs: No Vision needs: No Review of Systems Const Details: See scanned ROS form Physical Exam Vital Signs: Last Vital Signs BP 142/84 H 03/24/23 10:10 BMI result Body Mass Index 25.2 HEENT Other: No palpable scalp tenderness. Head: Yes normocephalic Resp Effort & Inspection: normal respiratory effort and able to speak in complete sentences Neuro Other: Alert & Oriented to person and general place. Pleasant affect. Clear speech. Pt has difficulty following conversation, whether in Spanish or Croatian, prone to confabulation. On MMSE- incorrect responses included- year as 1998, location 12th floor instead of 3rd floor. Poor clock drawing: draw clock augustine ok, correctly wrote numbers 12, 3, 6 in correct positions, then wrote 1 (instead of 9), then wrote 11, 10, 9 where 1,2, 3 should be. Then stated he could not finish further. Cranial nerves: Yes CN's II-XII intact bilaterally Cognition (Neuro): abnormal cognition Gait exam (Neuro): Normal gait present Motor exam (neuro): 5/5 motor strength present throughout Deep tendon reflexes (DTR's): Right triceps reflex intensity grade: 2+, Left triceps reflex intensity grade: 2+, Rt Biceps (C5, C6): 2+, Left biceps reflex intensity grade: 2+, Right brachioradialis reflex intensity grade: 2+, Left brachioradialis reflex intensity grade: 2+, Right patellar reflex intensity grade: 2+ and Left patellar reflex intensity grade: 2+ Coordination: [id number] test normal Pupils: Normal pupillary reactivity/response: bilateral Psych Appearance: grossly normal Mental Status: mental status grossly normal Speech and movement: Normal speech and movement present Affect: normal affect Attitude: cooperative Thought process: Normal thought process present Orientation What is the (year) (season) (date) (day) (month)?: season Where are we (state) (county) (town or city) (hospital) (floor)?: state, county, town or city and hospital/clinic Registration Name of 3 unrelated objects clearly and slowly, then ask patient to repeat all 3 of them. (1st repeat determines score. Make sure they can repeat all three): object 1, object 2 and object 3 Attention & Calculation (CHOOSE ONE) Spell WORLD backwards (DLROW): 1 letter Recall Ask patient to repeat the 3 items from question #3.: object 1 and object 2 Language Show patient a wristwatch & ask what it is. Repeat for pencil.: watch and pencil Ask the patient to repeat the phrase 'No ifs, ands, or buts' after you.: incorrect Ask the patient to 'take a piece of paper with their right hand' 'fold paper in half' 'place paper on floor': fold paper in half Print the sentence 'CLOSE YOUR EYES' on a piece. If patient actually closes eyes then score.: followed written direction Score Score: 15 Assessment & Plan Assessment & Plan (1) Cognitive dysfunction: Code(s): F09 - Unspecified mental disorder due to known physiological condition (2) Family history of dementia: Code(s): Z81.8 - Family history of other mental and behavioral disorders (3) Headache: Code(s): R51.9 - Headache, unspecified (4) Snoring: Code(s): R06.83 - Snoring (5) Excessive daytime sleepiness: Code(s): G47.19 - Other hypersomnia (6) Parasomnia: Code(s): G47.50 - Parasomnia, unspecified Plan Pt's progressive cognitive difficulties w/ MMSE score of 15/30 and poor clock drawing as well as hx of parasomnias raise concern for a neurodegenerative process. Recent Brain MRI only mild nonspecifc chronic microangiopathic changes. Mild low lying cerebellar tonsils- 7mm. Pt denies any h/o substance or alcohol abuse. He does report a family hx of ? early onset dementia. Thus, I have advised pt to undergo a comprehensive dementia work-up to assess for any secondary etiologies: Lab panel. EEG to assess for any epileptic activity. In-lab PSG to assess for sleep apnea and parasomnias. Pt would not be able to do a HST d/t his cognitive deficits. Will request Neuropsych evaluation at [facility] as pt will require knife edger. FDG-PET head to assess for neurodegenerative processes such as AD or FTD. Gnetics consult as pt has family hx suspicious for young onset dementia- pt has children and grandchildren. Upon review of above- consider referal to [facility] dementia clinic. For headache- It is unclear if pt has a strong positional component to his headaches. Will monitor. He may start B2 and Mag for prevention. May use Advil or Ibuprofen prn for now. f/u upon review of above and in clinic in 3 months or sooner prn. Orders: Orders Comprehensive Met. Panel Today E55.9 - Vitamin D deficiency, unspecified, F09 - Unspecified mental disorder due to known physiological condition, I10 - Essential (primary) hypertension, R35.0 - Frequency of micturition, R51.9 - Headache, unspecified, R68.89 - Other general symptoms and signs CRP High Sensitivity Today E55.9 - Vitamin D deficiency, unspecified, F09 - Unspecified mental disorder due to known physiological condition, I10 - Essential (primary) hypertension, R35.0 - Frequency of micturition, R51.9 - Headache, unspecified, R68.89 - Other general symptoms and signs Erythrocyte Sedimentation Rate Today E55.9 - Vitamin D deficiency, unspecified, F09 - Unspecified mental disorder due to known physiological condition, I10 - Essential (primary) hypertension, R35.0 - Frequency of micturition, R51.9 - Headache, unspecified, R68.89 - Other general symptoms and signs Hemoglobin A1c Today E55.9 - Vitamin D deficiency, unspecified, F09 - Unspecified mental disorder due to known physiological condition, I10 - Essential (primary) hypertension, R35.0 - Frequency of micturition, R51.9 - Headache, unspecified, R68.89 - Other general symptoms and signs Vitamin B12 and Folate Today E55.9 - Vitamin D deficiency, unspecified, F09 - Unspecified mental disorder due to known physiological condition, I10 - Essential (primary) hypertension, R35.0 - Frequency of micturition, R51.9 - Headache, unspecified, R68.89 - Other general symptoms and signs TSH reflex Free T4 Today E55.9 - Vitamin D deficiency, unspecified, F09 - Unspecified mental disorder due to known physiological condition, I10 - Essential (primary) hypertension, R35.0 - Frequency of micturition, R51.9 - Headache, unspecified, R68.89 - Other general symptoms and signs HIV Ab/Ag Today E55.9 - Vitamin D deficiency, unspecified, F09 - Unspecified mental disorder due to known physiological condition, I10 - Essential (primary) hypertension, R35.0 - Frequency of micturition, R51.9 - Headache, unspecified, R68.89 - Other general symptoms and signs Homocysteine Today E55.9 - Vitamin D deficiency, unspecified, F09 - Unspecified mental disorder due to known physiological condition, I10 - Essential (primary) hypertension, R35.0 - Frequency of micturition, R51.9 - Headache, unspecified, R68.89 - Other general symptoms and signs Methylmalonic Acid Today E55.9 - Vitamin D deficiency, unspecified, F09 - Unspecified mental disorder due to known physiological condition, I10 - Essential (primary) hypertension, R35.0 - Frequency of micturition, R51.9 - Headache, unspecified, R68.89 - Other general symptoms and signs EEG electroencephalogram Today F09 - Unspecified mental disorder due to known physiological condition RT PSG in-lab sleep study Today F09 - Unspecified mental disorder due to known physiological condition, G47.19 - Other hypersomnia, G47.50 - Parasomnia, unsp ecified, G47.9 - Sleep disorder, unspecified, R06.83 - Snoring Complete Blood Count Auto Diff Today E55.9 - Vitamin D deficiency, unspecified, F09 - Unspecified mental disorder due to known physiological condition, I10 - Essential (primary) hypertension, R35.0 - Frequency of micturition, R51.9 - Headache, unspecified, R68.89 - Other general symptoms and signs INDER Reflex Titer and Pattern Today E55.9 - Vitamin D deficiency, unspecified, F09 - Unspecified mental disorder due to known physiological condition, I10 - Essential (primary) hypertension, R35.0 - Frequency of micturition, R51.9 - Headache, unspecified, R68.89 - Other general symptoms and signs Syphilis Screen Today E55.9 - Vitamin D deficiency, unspecified, F09 - Unspecified mental disorder due to known physiological condition, I10 - Essential (primary) hypertension, R35.0 - Frequency of micturition, R51.9 - Headache, unspecified, R68.89 - Other general symptoms and signs PET CT fusion whole body Today E55.9 - Vitamin D deficiency, unspecified, F09 - Unspecified mental disorder due to known physiological condition, I10 - Essential (primary) hypertension, R35.0 - Frequency of micturition, R51.9 - Headache, unspecified, R68.89 - Other general symptoms and signs Referrals Neuropsychiatry Referral E55.9 - Vitamin D deficiency, unspecified, F09 - Unspecified mental disorder due to known physiological condition, I10 - Essential (primary) hypertension, R35.0 - Frequency of micturition, R51.9 - Headache, unspecified, R68.89 - Other general symptoms and signs, Z81.8 - Family history of other mental and behavioral disorders Genetics Referral E55.9 - Vitamin D deficiency, unspecified, F09 - Unspecified mental disorder due to known physiological condition, I10 - Essential (primary) hypertension, R35.0 - Frequency of micturition, R51.9 - Headache, unspecified, R68.89 - Other general symptoms and signs Medications: New riboflavin (vitamin B2) 400 mg PO DAILY 30 days 30 tabs 6RF magnesium oxide may hold for loose stools 400 mg PO BEDTIME 30 days 30 tabs 6RF Coding Level of Care Code New Pt Level 4 (93621) Diagnoses Cognitive dysfunction F09 Family history of dementia Z81.8 Headache R51.9 Snoring R06.83 Excessive daytime sleepiness G47.19 Parasomnia G47.50
[2023-03-24 10:10] VITALS: BP 142/84; BMI 25.2
== END 2023-03-24 11:13 | disposition home or self-care (01) ==
PROVIDERS: PCP Nurse Practitioner Family; Visit Provider Nurse Practitioner Family
DX: R41.89 Other symptoms and signs involving cognitive functions and awareness (principal); Z81.8 Family history of other mental and behavioral disorders; R51.9 Headache, unspecified; R06.83 Snoring; G47.19 Other hypersomnia; G47.50 Parasomnia, unspecified
CPT/HCPCS: 99204

== ENCOUNTER → 2023-03-24 10:02 | Outpatient (BNVA) | payer OTHER, SELFPAY | PROVIDERS: PCP Nurse Practitioner Family; Visit Provider Nurse Practitioner Family ==

== ENCOUNTER 2023-07-10 11:10 | Outpatient (AMB) | payer OTHER, SELFPAY ==
[2023-07-10 11:15] VITALS: BP 130/80; BMI 24.9
--- NOTE | 2023-07-10 11:15 | MHC.OFFVIS ---
Intake Vital Signs 07/10/23 11:15 Height 5 ft 7 in Weight 159 lb BMI 24.9 BP 130/80 Blood Pressure Location Rt brachial Position Sitting Intake Visit Reasons: 3 mnts f/u appt for TEE - Confirmed Intake Note: Patient presents for 3 month follow up. loss of appetite, this last week I was confused I've bee confused for a while now really bad Allergies No Known Allergies Allergy (Verified 07/10/23 11:19) Medication List - Last Reconciled 07/10/23 by JS Rao amlodipine 5 mg PO DAILY bisacodyl (Dulcolax (bisacodyl)) 20 mg (4 x 5 mg) PO ONCE 1 day cholecalciferol (vitamin D3) (Vitamin D3) 25 mcg PO DAILY lisinopril 20 mg PO DAILY magnesium oxide 400 mg PO BEDTIME 30 days memantine 7 mg PO DAILY 30 days polyethylene glycol 3350 (Miralax) 238 grams PO ONCE 1 day riboflavin (vitamin B2) 400 mg PO DAILY 30 days HPI HPI Comments History of Present Illness Details 62-yr-old male presents for f/u visit, accompanied by his . Pt denies any significant interval medical changes. 04/20/2023 FDG PET brain scan: Impression: Abnormal distribution of FDG, affecting metabolism of biparietal and bitemporal cortex. Findings are consistent with moderately advanced Alzheimer's like changes. Mild asymmetric decrease in metabolic activity in the right frontal lobe can be seen with advanced Alzheimer's disease. Patient is still getting himself washed and dressed. Pt reports he can feel tired. He has had decreased appetite. most like he does not remember what he ate for breakfast. reports he often feels attacked or alone. Patient still wants to go to work, however he knows he has been advised not to drive. 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 His states she can not ask him to do anything, for instance if she asks him to get something out of the Fridge he does not know how to go about doing.. Patient is prone to making a mess in the home because he is looking for random things. He can stare off at nothing. She is having parasomnias. He is now yelling and fighting in his sleep. If he takes a brief nap, he may think that he slept for hours. He can hear noises that are there. He can be more confused, especially at night- will get up and go into the living room where his sleeps- and will not be sure if it is day or night. He feels his memory has been pretty bad. He can feel lost- he cannot think clearly. [facility] Medical History (Updated 07/23/23 @ 18:36 by JS Rao) Forgetfulness Hypertension Surgical History No pertinent past surgical history Family History Mother Dementia Father Colon cancer Social History Housing: House Alcohol intake: never Patient Tobacco Use Status: Never used Tobacco e-Cigarette/Vaping Use: Never Used Second Hand Smoke Exposure: No service: No Current occupational status: employed Cognitive needs: No Hearing needs: No Vision needs: No Physical Exam Vital Signs: Last Vital Signs BP 130/80 07/10/23 11:15 BMI result Body Mass Index 24.9 Const General: cooperative and no acute distress Orientation/consciousness: oriented to person and oriented to place HEENT Head: Yes normocephalic Resp Effort & Inspection: normal respiratory effort and able to speak in complete sentences Neuro General: oriented to person, oriented to place, gait normal and CN's II-XI intact bilaterally Motor exam (neuro): 5/5 motor strength present throughout Psych Appearance: grossly normal Speech and movement: Normal speech and movement present Affect: normal affect Attitude: cooperative Assessment & Plan Assessment & Plan (1) Alzheimer's dementia: Code(s): G30.9 - Alzheimer's disease, unspecified; F02.80 - Dementia in other diseases classified elsewhere, unspecified severity, without behavioral disturbance, psychotic disturbance, mood disturbance, and anxiety (2) Sleep difficulties: Code(s): G47.9 - Sleep disorder, unspecified (3) Parasomnia: Code(s): G47.50 - Parasomnia, unspecified (4) Family history of dementia: Code(s): Z81.8 - Family history of other mental and behavioral disorders Plan Reviewed results of FDG PET scan, which are consistent with an Alzheimer's disease process. Discussed importance of completing advanced directives at this point. Information shared on healthcare proxy and MOLST forearms. If needed, patient advised to complete a durable power of trust and estates attorney and/or a will. Will follow-up on previous request for genetic testing at [facility]- per [facility], pt will be more likely to be seen if genetic testing already completed locally. Will refer patient to [facility] Cognitive Disorder Clinic, in hopes patient can be evaluated for lecanemab or possibly an ultimately clinical trial. Patient has not had requested lab work done we will follow up on this. Increase memantine from 7 mg to 14 mg daily. Start quetiapine 12.5-25 mg q.h.s. For headache- Continue B2 and Mag for prevention. May use Advil or Ibuprofen prn for now. Follow-up in 3 months or sooner. Medications: New quetiapine 12.5 - 25 mg (0.5 - 1 x 25 mg) PO BEDTIME 30 tabs 3RF 30 days memantine then stop and increase to 21mg qd 14 mg PO DAILY 14 ea 0RF 14 days Coding Level of Care Code Est Pt Level 4 (96784) Diagnoses Alzheimer's dementia G30.9; F02.80 Sleep difficulties G47.9 Parasomnia G47.50 Family history of dementia Z81.8
== END 2023-07-10 12:19 | disposition home or self-care (01) ==
PROVIDERS: PCP Nurse Practitioner Family; Visit Provider Nurse Practitioner Family
DX: G30.9 Alzheimer's disease, unspecified (principal); F02.80 Dementia in other diseases classified elsewhere, unspecified severity, without behavioral disturbance, psychotic disturbance, mood disturbance, and anxiety; G47.9 Sleep disorder, unspecified; G47.50 Parasomnia, unspecified; Z81.8 Family history of other mental and behavioral disorders
CPT/HCPCS: 99214

== ENCOUNTER → 2023-07-10 11:10 | Outpatient (BNVA) | payer OTHER, SELFPAY | PROVIDERS: PCP Nurse Practitioner Family; Visit Provider Nurse Practitioner Family | DX: G30.9 Alzheimer's disease, unspecified (principal); G47.9 Sleep disorder, unspecified; G47.50 Parasomnia, unspecified; F02.80 Dementia in other diseases classified elsewhere, unspecified severity, without behavioral disturbance, psychotic disturbance, mood disturbance, and anxiety; Z81.8 Family history of other mental and behavioral disorders | CPT/HCPCS: 99212 ==

== ENCOUNTER 2023-07-25 09:40 | Day surgery (SDC) | payer OTHER, SELFPAY ==
[2023-07-21 14:36] VITALS: BMI 25.7
[2023-07-25] MEDS: Lactated Ringers 1,000 ML 80 ML IVCONT (10:33)
[2023-07-25 10:41] VITALS: BP 146/90; PULSE 77; RESP 18; TEMP 36.6; O2SAT 97; BMI 24.4
--- NOTE | 2023-07-25 10:59 | HO.ANESPROP2 ---
[facility] Active Problems Active Problems: All Active Problems (Updated 07/23/23 @ 18:36 by JS Rao) Alzheimer's dementia (Acute) Sleep difficulties (Acute) Parasomnia (Acute) Excessive daytime sleepiness (Acute) Snoring (Acute) Family history of dementia (Acute) Cognitive dysfunction (Acute) Family history of colon cancer in father (Acute) Encounter for screening colonoscopy (Acute) Vitamin D deficiency (Acute) Headache (Acute) Eye exam, routine (Acute) Forgetfulness (Acute) Hypertension (Acute) Frequency of urination (Acute) Urinary tract infection (Acute) Past Medical History Medical History (Updated 07/23/23 @ 18:36 by JS Rao) Forgetfulness Hypertension Family History Family History Mother Dementia Father Colon cancer Family history of problems with anesthesia: No Surgical History Surgical History No pertinent past surgical history History of Problems with Anesthesia: No Social History Social History Housing: House Alcohol intake: never Patient Tobacco Use Status: Never used Tobacco e-Cigarette/Vaping Use: Never Used Second Hand Smoke Exposure: No Are you DNR?: No Advance Directives: No Advance Directives Information Provided: Yes Nutrition Risks: No Nutritional Risk service: No Current occupational status: employed Cognitive needs: No Hearing needs: No Vision needs: No Meds Allergies Allergy/AdvReac Type Severity Reaction Status Date / Time No Known Allergies Allergy Verified 07/10/23 11:19 Active Medications: Current Medications Lactated Ringer's (Lr) 1,000 mls @ 80 mls/hr IVCONT .[id number] EMMA Last Admin: 07/25/23 10:33 Dose: 80 mls/hr Exam Height,Weight and Vital Signs: Height 5 ft 7 in Weight 70.67 kg Last Vital Signs Temp 97.9 F 07/25/23 10:41 Pulse 77 07/25/23 10:41 Resp 18 07/25/23 10:41 BP 146/90 H 07/25/23 10:41 Pulse Ox 97 07/25/23 10:41 O2 Del Method Room Air 07/25/23 10:41 Airway Mallampati Class: II TM Dist: >3cm Neck ROM: Full Assessment and Plan Assessment Anesthesia Assessment: Anesthesia Plan Discussed and Chart Reviewed Final Anesthetic Review Family History of Problems with Anesthesia: No History of Problems with Anesthesia: No NPO: Yes ASA Class: III Final Preanesthetic Review: No Changes in Pt Med Stat, Meds/Allgs Chart Reviewed, Consent Obtained/Reviewed and Anes Risks/Benef Reviewed Patient Risk: Intermediate Procedure Risk: Low Anesthetic Plan Anesthetic Plan: TIVA Disposition: Standard PACU
--- NOTE | 2023-07-25 11:01 | MHC.SHP ---
Pre-Procedural Eval Section A Date of Service: 07/25/23 The patient is an INPATIENT: No The History & Physical has been completed within 30 days and I have reviewed it.: No Section B Chief Complaint: Colon cancer screening Relevant Family History (Specify if Yes): Yes Relevant Social History: None Present Medications: see Short Stay Collaborative assessment Medical History: Significant History (Forgetfulness Hypertension) History of Previous Operations: No relevant previous surgery Allergies: Allergies Allergy/AdvReac Type Severity Reaction Status Date / Time No Known Allergies Allergy Verified 07/10/23 11:19 Review of Systems Sugical H&P ROS: Negative: Constitution, Cardiovascular, Respiratory and Gastrointestinal Exam Surgical H&P Exam: Normal: Heart, Normal: Lungs, Normal: Extremities and Normal: Abdomen Plan Diagnosis/Plan: Unchanged I have reviewed the history and physical and performed a pertinent physical examination on my patient. No changes have occurred unless specified. Time Spent With Patient Time: Total time managing care of this patient today ____ minutes.
--- NOTE | 2023-07-25 12:49 | W.PM.OPN ---
Operative Note Operative Note Date of Service: 07/25/23 Narrative: COLONOSCOPY TILL CECUM WITH BIOPSY, SNARE POLYPECTOMY, SUBMUCOSAL INJECTION AND HEMOCLIP PLACEMENT Pre-op diagnosis: Colon cancer screening Post-op diagnosis:? Colon polyps, hemorrhoids Endoscopist:? Tomi Sanchez MD Anesthesia:?MAC Consent: Indications for the procedure and potential complications of bleeding, perforation, reaction to medications and missed diagnosis were discussed with the patient and informed consent was obtained. Instrument: Olympus PCF H 190 L variable stiffness pediatric colonoscope Monitoring: Vital signs and clinical assessment, intermittent blood pressure monitoring, continuous EKG monitoring, Pulse oximetry and Carbon Dioxide monitoring were done throughout the procedure. Please see anesthesia flowsheet. Colon withdrawl time was 15 minutes. Procedure: The patient was placed in the left lateral decubitis position and pre-procedure medications were administered. After a digital rectal examination of the ano-rectum, the video colonoscope was inserted into the rectum and advanced through the colon to the cecum. The colonoscope was slowly withdrawn in a retrograde panoramic fashion and the colon mucosa was carefully examined including a retroflexed view of the rectum. Findings and interventions are described below. Procedure Difficulty: Without difficulty Findings: Terminal Ileum: Not evaluated Cecum: Normal Ascending Colon: A 10-12 mm flat polyp at the hepatic flexure. Polyp was raised with 3 cc of [place] and removed with a stiff, hot snare. Polypectomy site was closed with 1 hemoclip. Transverse Colon: A 4-5 mm sessile polyp - removed with a cold biopsy. Descending Colon: Normal Sigmoid Colon: Normal Rectum: Normal Ano-rectum: Moderate internal hemorrhoids Colon preparation: Good after some irrigation [place] Bowel Preparation Scale Right colon; 2 Transverse colon: 2 Left colon; 2 (0 = Unprepared colon segment with mucosa not seen due to solid stool that cannot be cleared. 1 = Portion of mucosa of the colon segment seen, but other areas of the colon segment not well seen due to staining, residual stool and/or opaque liquid. 2 = Minor amount of residual staining, small fragments of stool and/or opaque liquid, but mucosa of colon segment seen well. 3 = Entire mucosa of colon segment seen well with no residual staining, small fragments of stool or opaque liquid) Impression and Post Procedure Diagnosis: Colonoscopy Findings: One medium sized and one small polyps removed Moderate hemorrhoids on retroflexed exam. Plan: Await pathology results Patient has an appointment on 08/08/23 in the GI Clinic with CRISTY Smart. Repeat Colonoscopy interval based on path results - in 3-5 years if polyps are adenomatous and 10 years if polyps are hyperplastic. Above findings were reviewed with the patient and his (since pt has demetia) and colon polyps handout was given in the discharge area
[2023-07-25 12:51] VITALS: BP 94/60; PULSE 62; RESP 16; TEMP 36.2; O2SAT 97
[2023-07-25 13:06] VITALS: BP 103/65; PULSE 59; RESP 16; O2SAT 95
[2023-07-25 13:21] VITALS: BP 112/75; PULSE 56; RESP 16; O2SAT 97
[2023-07-25 13:36] VITALS: BP 123/88; PULSE 58; RESP 16; TEMP 36.2; O2SAT 98
== END 2023-07-25 14:47 | disposition home or self-care (01) ==
PROVIDERS: PCP Internal Medicine; Visit Provider Internal Medicine Gastroenterology
PROC: 0DJD8ZZ Inspection of Lower Intestinal Tract, Via Natural or Artificial Opening Endoscopic (ICD-10-PCS; CPT 45378; principal; 2023-07-25 11:00)
DX: Z12.11 Encounter for screening for malignant neoplasm of colon (principal); K63.5 Polyp of colon; K64.8 Other hemorrhoids; Z80.0 Family history of malignant neoplasm of digestive organs; I10 Essential (primary) hypertension; G30.9 Alzheimer's disease, unspecified
CPT/HCPCS: 45385; 45380; 45381; 88305; J2704

== ENCOUNTER → 2023-07-25 09:40 | Outpatient (BNV) | payer OTHER, SELFPAY | PROVIDERS: PCP Internal Medicine; Visit Provider Internal Medicine Gastroenterology | DX: Z12.11 Encounter for screening for malignant neoplasm of colon (principal); K63.5 Polyp of colon; K64.8 Other hemorrhoids | CPT/HCPCS: 45380; 45381; 45385 ==

== ENCOUNTER 2023-08-08 11:34 | Outpatient (REF) | payer OTHER, SELFPAY ==
[2023-08-08 13:59] LABS: Appearance Urine Clear; Color Urine Yellow; Glucose Urine UA Negative (Negative); Leukocyte Esterase Urine Negative (Negative); Nitrite Urine Negative (Negative); UMIC TRIGGER UA YES; Urine Blood Trace (Negative); Urine Ketones Negative (Negative); Urine Protein Negative (Neg-Trace)
[2023-08-08 14:02] LABS: Bacteria Urine None Seen (None Seen); Hyaline Casts Urine 0-2 /LPF (0-2); RBC Urine 0-2 /HPF (0-2); Squamous Epithelial Cell Urine 0-2 /HPF (0-2); WBC Urine 0-5 /HPF (0-5)
== END 2023-08-08 11:35 | disposition home or self-care (01) ==
LOC: HO.LAB 11:34
PROVIDERS: PCP Nurse Practitioner Family; Visit Provider Physician Assistant
DX: R30.0 Dysuria (principal); Z12.11 Encounter for screening for malignant neoplasm of colon; K59.09 Other constipation; K63.5 Polyp of colon; Z80.0 Family history of malignant neoplasm of digestive organs
CPT/HCPCS: 81001; 81003; 99212

== ENCOUNTER 2023-08-08 11:34 | Outpatient (AMB) | payer OTHER, SELFPAY ==
--- NOTE | 2023-08-08 11:36 | MHC.OFFVIS ---
Intake Vital Signs 08/08/23 11:40 BP 172/90 H Blood Pressure Location Lt brachial Position Sitting Pulse 63 Intake Visit Reasons: s/P [place] screening; Dr. Ellis Intake Note: This patient presents for a follow-up assessment status post colonoscopy. Pt c/o; reports no complaints at this time. Laboratory Technical Specialist Required: No Accompanied by: Other Relationship Allergies No Known Allergies Allergy (Verified 08/08/23 11:39) Medication List - Last Reconciled 08/08/23 by Melanie Dietz PA-C amlodipine 5 mg PO DAILY cholecalciferol (vitamin D3) (Vitamin D3) 25 mcg PO DAILY lisinopril 20 mg PO DAILY magnesium oxide 400 mg PO BEDTIME 30 days memantine 21 mg PO DAILY 30 days quetiapine 12.5 - 25 mg (0.5 - 1 x 25 mg) PO BEDTIME 30 days riboflavin (vitamin B2) 400 mg PO DAILY 30 days HPI HPI Comments History of Present Illness Details A 62-year-old male family history of colon cancer, follows up after recent screening colonoscopy. He is here today with his he expresses his anxiety due to unknown results. His hypertensive, however he has not taking his daily medications. He denies any chest pain, shortness of breath nausea or vomiting He has an excellent appetite no acid reflux He has chronic constipation he has currently not following any regimen. He complains of intermittent dysuria, he is establishing with a PCP and if month. He has not had any fevers or hematuria Reviewed procedure report, pathology as well as recommendations Encouraged to follow a high-fiber diet stay well hydrated Will begin bowel regimen- He has no nausea, vomiting, hematemesis, hematochezia fever chills [facility] Medical History (Updated 08/08/23 @ 13:23 by Melanie Dietz PA-C) Forgetfulness Hypertension Surgical History Hx of colonoscopy No pertinent past surgical history Family History Mother Dementia Father Colon cancer Social History Housing: House Alcohol intake: never Patient Tobacco Use Status: Never used Tobacco e-Cigarette/Vaping Use: Never Used Second Hand Smoke Exposure: No service: No Current occupational status: employed Cognitive needs: No Hearing needs: No Vision needs: No Review of Systems Const All systems reviewed & are unremarkable except as noted in HPI and below Card Denies chest pain, Denies dyspnea and Denies dyspnea on exertion Resp Denies dyspnea and Denies dyspnea on exertion GI Denies abdominal pain, Denies hematochezia, Reports constipation, Denies nausea and Denies vomiting Denies hematuria, Reports dysuria, Denies flank pain, Reports nocturia and Denies urinary incontinence Physical Exam Vital Signs: Last Vital Signs Pulse 63 08/08/23 11:40 BP 172/90 H 08/08/23 11:40 Const General: cooperative, comfortable and no acute distress Orientation/consciousness: patient oriented x3 Eyes Conjunctivae: conjunctivae normal Sclerae: sclerae normal Resp Effort & Inspection: normal respiratory effort and able to speak in complete sentences Auscultation: clear to auscultation bilaterally, no rales, no rhonchi and no wheezes Cardio Rate: regular rate Rhythm: regular rhythm Heart sounds: S1 normal heart sound present and S2 normal heart sound present Neuro General: patient oriented x3 Extrem General: Yes normal to inspection Psych Appearance: grossly normal and well kempt Mental Status: mental status grossly normal Speech and movement: Normal speech and movement present and Clear speech present Affect: Anxious affect present Thought process: Normal thought process present Results Reviewed Results Reviewed: Impression and Post Procedure Diagnosis: Colonoscopy Findings: One medium sized and one small polyps removed Moderate hemorrhoids on retroflexed exam. Plan: Await pathology results Patient has an appointment on 08/08/23 in the GI Clinic with CRISTY Smart. Repeat Colonoscopy interval based on path results - in 3-5 years if polyps are adenomatous and 10 years if polyps are hyperplastic. Above findings were reviewed with the patient and his (since pt has demetia) and colon polyps handout was given in the discharge area : Levon Nuñez Age/Sex: 62/M Attending: Tomi Sanchez MD : 1960 Submitted by: Tomi Sanchez MD Copies to: Maribeth Talamantes MD MR #: [id number] Status: [facility] Collected: 07/25/23 Location: [facility] Received: 07/25/23 Diagnosis A. Colon, ascending, polyp: No tissue present for evaluation; food material only. B. Colon, transverse, polyp: Colonic mucosa with prominent lymphoid aggregate; no adenomatous dysplasia seen. Clinical History Pre-Op Dx: Screening Post-Op Dx: Colon polyps, hemorrhoids Microscopic Description Microscopic sections reviewed. Material Received A. Ascending colon polyp B. Transverse colon polyp Gross Description Received in 2 parts. A. Received in formalin labeled ?ascending colon polyp? is a fragment of monsivais-white soft material measuring 0.5 cm in greatest dimension which is entirely submitted for microscopic examination, 1 piece in cassette labeled A. B. Received in formalin labeled ?transverse colon polyp? are 2 fragments of translucent monsivais-white soft tissue measuring 0.2 and 0.3 cm in greatest dimension which are entirely submitted for microscopic examination, 2 pieces in cassette labeled B. smc Copies To Tomi Sanchez MD [address] [place] [address] Dr. Carter, VALERY [address] Maribeth Talamantes MD Patient: Levon Nuñez Age/Sex: 62/M MR#: [id number] Page 1 of 2 Assessment & Plan Assessment & Plan (1) Family history of colon cancer in father: Comment: father @ 48 Code(s): Z80.0 - Family history of malignant neoplasm of digestive organs (2) Colon polyps: Comment: No tissue present for evaluation- Code(s): K63.5 - Polyp of colon Plan: repeat colon 5 years- no tissue-family history colon cancer (3) Chronic constipation: Comment: Bowel regimen Code(s): K59.09 - Other constipation Plan: Consistent bowel Maintain high-fiber diet (4) Dysuria: Comment: seeing Dr. Dawn-08/22- will send U/A to her Code(s): R30.0 - Dysuria Plan: U/A C&S Plan U/A 5 year colon Bowel regimen- Orders: Orders UA and rflx microscopic Today R30.0 - Dysuria Medications: New methylcellulose (laxative) (Citrucel) 500 mg PO TID 90 tabs 5RF polyethylene glycol 3350 (Miralax) 17 grams PO DAILY 510 grams 6RF docusate sodium (Colace) 200 mg (2 x 100 mg) PO BEDTIME 60 caps 5RF hydrocortisone 2.5% (Proctozone-HC) apply ME BID prn 1 appl ME BID PRN 30 grams 3RF hemorrhoids Patient Instructions: U/A-note sent to Dr. Dawn 5 year colon-family history colon cancer Bowel regimen-reviewed, many choices Encouraged high-fiber diet stay well hydrated Call with any questions or concerns Coding Level of Care Code Est Pt Level 3 (74868) Diagnoses Family history of colon cancer in father Z80.0 Colon polyps K63.5 Chronic constipation K59.09 Dysuria R30.0 Time Spent (min) 30
[2023-08-08 11:40] VITALS: BP 172/90; PULSE 63
== END 2023-08-08 12:43 | disposition home or self-care (01) ==
PROVIDERS: PCP Nurse Practitioner Family; Visit Provider Physician Assistant
DX: Z80.0 Family history of malignant neoplasm of digestive organs (principal); K63.5 Polyp of colon; K59.09 Other constipation; R30.0 Dysuria
CPT/HCPCS: 99213

== ENCOUNTER 2023-08-22 16:06 | Outpatient (AMB) | payer OTHER, SELFPAY ==
--- NOTE | 2023-08-22 16:11 | A.OFFPC_ITS ---
Vital Signs 08/22/23 16:17 08/22/23 17:16 Height 5 ft 7 in Weight 158 lb BMI 24.7 BP 136/90 H 138/88 Blood Pressure Location Lt brachial Lt brachial Position Sitting Sitting Intake Visit Reasons: HTN, forgetfulness/Transfer Care from [employer] Required: No Accompanied by: Spouse Allergies No Known Allergies Allergy (Verified 08/22/23 16:29) Medication List - Last Reconciled 08/22/23 by Maribeth Barros MD amlodipine 5 mg PO DAILY docusate sodium (Colace) 200 mg (2 x 100 mg) PO BEDTIME hydrocortisone 2.5% (Proctozone-HC) 1 appl MS BID PRN lisinopril 20 mg PO DAILY magnesium oxide 400 mg PO BEDTIME 30 days memantine 21 mg PO DAILY 30 days methylcellulose (laxative) (Citrucel) 500 mg PO TID polyethylene glycol 3350 (Miralax) 17 grams PO DAILY quetiapine 12.5 - 25 mg (0.5 - 1 x 25 mg) PO BEDTIME 30 days riboflavin (vitamin B2) 400 mg PO DAILY 30 days Tobacco use date assessed: 08/22/23 Dental Screening Dental Screen Date: 08/22/23 Did you have a dental visit in the last 12 months?: No Did you have a dental problem in the last 6 months where you did not have access to dental care?: No Was dental information given to patient?: Patient has dentist HPI HPI Comments History of Present Illness Details This is a 62-year-old male with Alzheimer's dementia, hypertension and chronic constipation that comes accompanied by to establish care. Has dementia follow by Neurology which has had no significant difference. Blood pressure stable. Constipation well controlled with medications. Patient complains of abdominal pain more prominent in the lower abdomen that he feels when he takes his medication. No change in bowel habits. Also has lost about 30 lb last year since the diagnosis of dementia. He is awake, alert and oriented to person and place but not to time. FORMERLY [facility], [facility] Medical History (Updated 08/22/23 @ 17:21 by Maribeth Barros MD) Forgetfulness Hypertension Surgical History (Updated 08/22/23 @ 16:19 by KANA Shaikh) Hx of colonoscopy Family History Mother Dementia Father Colon cancer Social History Housing: House Alcohol intake: never Patient Tobacco Use Status: Never used Tobacco e-Cigarette/Vaping Use: Never Used Second Hand Smoke Exposure: No service: No Current occupational status: unemployed Cognitive needs: No Hearing needs: No Vision needs: No Questionnaire PHQ-9 Over the last 2 weeks, how often have you been bothered by any of the following problems? 1. Little interest or pleasure in doing things: not at all 2. Feeling down, depressed, or hopeless: several days 3. Trouble falling or staying asleep, or sleeping too much: several days 4. Feeling tired or having little energy: not at all 5. Poor appetite or overeating: several days 6. Feeling bad about yourself - or that you are a failure or have let yourself or your family down: not at all 7. Trouble concentrating on things, such as reading the newspaper or watching television: not at all 8. Moving or speaking so slowly that other people could have noticed. Or the opposite - being so fidgety or restless that you have been moving around a lot more than usual: not at all 9. Thoughts that you would be better off or of hurting yourself in some way: not at all Total score: 3 Depression Screening Interpretation: Negative Depression Screening Done: Yes 77818 - PHQ-9 Billing: Yes Source: Developed by Drs. Gonzales Dennison, Kary Herrera, Adalberto Duarte and colleagues, with an educational bj from [employer]. Thrive Questionnaire Date Thrive assessed: 08/22/23 I am a: Patient What is your living situation today?: I have a steady place to live Within the past 12 months, did the food you bought not last and you didn't have the money to get more?: Never true Within the past 12 months, did you worry whether your food would run out before you got money to buy more?: Never true Do you have trouble paying for medicines?: No Do you have trouble getting transportation to medical appointments?: No Do you have trouble paying your heating and electricity bill?: No Do you have trouble taking care of your child, family member or friend?: No Do you have trouble with day-to-day activities such as bathing, preparing meals, shopping, managing finances, etc.?: No Are you currently unemployed and looking for a job?: No Are you interested in more education?: No Please select the resources that you would like help with: None Currently or been in a relationship where the following occur: no concerns reported THRIVE Score: 0 AUDIT C Alcohol Use Questionnaire (AUDIT-C) 1. How often do you have a drink containing alcohol?: Never Total Score: 0 SAVITA-7 AMB Questionnaire SAVITA-7 Date SAVITA - 7 assessed: 08/22/23 Feeling nervous, anxious, or on edge: 1 = Several days Not being able to stop or control worryin = Not at all Worrying too much about different things: 0 = Not at all Trouble relaxin = Not at all Being so restless that it is hard to sit still: 0 = Not at all Becoming easily annoyed or irritable: 0 = Not at all Feeling afraid as if something awful might happen: 0 = Not at all Total SAVITA-7 score (0-4 normal; 5-9 mild; 10-14 moderate; 15-21 severe): 1 Source: Developed by Drs. Gonzales Dennison, Kary Herrera, Adalberto Duarte and colleagues, with an educational bj from [employer]. SAVITA-7 Assessment Billing SAVITA-7 Assessment Tool: SAVITA-7 Assessment 41700 Review of Systems Const All systems reviewed & are unremarkable except as noted in HPI and below Eyes Reports no additional complaints, Denies change in vision and Denies other visual disturbances Card Denies chest pain at rest, Denies chest pain with activity, Denies edema, Denies irregular heart rhythm, Denies claudication, Denies dyspnea, Denies dyspnea on exertion, Denies orthopnea, Denies paroxysmal nocturnal dyspnea and Denies slow heart rate Resp Denies cough, Denies dyspnea and Denies dyspnea on exertion GI Denies abdominal pain, Denies change in bowel habits, Denies excessive flatus, Denies nausea and Denies vomiting Denies urinary hesitancy, Denies urinary incontinence and Denies urinary urgency Musc Denies abnormal gait, Denies atrophy, Denies deformity and Denies limited range of motion Skin/Breast Denies bleeding lesions, Denies changing lesions and Denies rash Neuro Denies abnormal gait and Denies lack of coordination Physical exam (Primary Care) Vital Signs: Last Vital Signs BP 136/90 H 08/22/23 16:17 BMI result Body Mass Index 24.7 Tobacco/Smoking Status: Tobacco use Status Tobacco use date assessed 08/22/23 08/22/23 16:23 Patient Tobacco Use Status Never used Tobacco 08/22/23 16:12 Tobacco use type 03/24/23 11:15 e-Cigarette/Vaping Use Never Used 08/22/23 16:12 PHQ-9: PHQ-9 Score PHQ-9: Total score 3 08/22/23 16:42 Depression Screening Interpretation: Negative Thrive Assessment: Date of Thrive Assessment Date Thrive assessed 08/22/23 08/22/23 16:23 Currently or been in a relationship where the following occur: no concerns reported Eyes General: appearance normal, both eyes and all related structures Eyelids: Yes eyelids normal Conjunctivae: conjunctivae normal Neck Neck: Yes normal visual inspection and Yes supple Resp Effort & Inspection: normal respiratory effort Auscultation: clear to auscultation bilaterally Cardio Jugular venous distension: no JVD Rate: regular rate Rhythm: regular rhythm Heart sounds: S1 normal heart sound present and S2 normal heart sound present GI Inspection: Yes normal to inspection Palpation (GI): Soft to palpation and nontender Auscultation: normal bowel sounds Extrem General: Yes full ROM Assessment and Plan Assessment & Plan (1) Alzheimer's dementia: Code(s): G30.9 - Alzheimer's disease, unspecified; F02.80 - Dementia in other diseases classified elsewhere, unspecified severity, without behavioral disturbance, psychotic disturbance, mood disturbance, and anxiety Qualifiers: Alzheimer's disease onset: early onset Dementia severity: mild Dementia behavioral or psychological symptom: without behavioral, psychotic, or mood disturbance or anxiety Qualified Code(s): G30.0 - Alzheimer's disease with early onset; F02.A0 - Dementia in other diseases classified elsewhere, mild, without behavioral disturbance, psychotic disturbance, mood disturbance, and anxiety Plan: Continue memantine. Follow-up with Neurology (2) Chronic constipation: Comment: Bowel regimen Code(s): K59.09 - Other constipation Plan: Continue Colace as needed. (3) Hypertension: Code(s): I10 - Essential (primary) hypertension Qualifiers: Hypertension type: primary hypertension Qualified Code(s): I10 - Essential (primary) hypertension Plan: Continue amlodipine lisinopril. Blood pressure goal is equal or less than 130/80. (4) Abdominal pain: Code(s): R10.9 - Unspecified abdominal pain Qualifiers: Abdominal location: lower abdomen, unspecified Qualified Code(s): R10.30 - Lower abdominal pain, unspecified Plan: Ultrasound of the abdomen ordered. Orders: Orders US abdomen complete Today R10.9 - Unspecified abdominal pain Complete Blood Count Auto Diff Today K59.09 - Other constipation PSA,Total (Free>4and<10) Today Z12.5 - Encounter for screening for malignant neoplasm of prostate Vitamin D 25-OH Total Today E55.9 - Vitamin D deficiency, unspecified Vitamin B12 and Folate Today E53.8 - Deficiency of other specified B group vitamins Thyroid Stimulating Hormone Today K59.09 - Other constipation Lipid Panel Today I10 - Essential (primary) hypertension UA CC w/rflx Micro + Cult Today R30.0 - Dysuria Coding Level of Care Code Est Pt Level 4 (86834) Diagnoses Mild early onset Alzheimer's dementia without behavioral disturbance, psychotic disturbance, mood disturbance, or anxiety G30.0; F02.A0 Alzheimer's disease onset: early onset Dementia severity: mild Dementia behavioral or psychological symptom: without behavioral, psychotic, or mood disturbance or anxiety Chronic constipation K59.09 Primary hypertension I10 Hypertension type: primary hypertension Lower abdominal pain R10.30 Abdominal location: lower abdomen, unspecified Additional Codes SAVITA-7 Assessment Billing - SAVITA-7 Assessment Tool: SAVITA-7 Assessment 00523 ([id number]) Time Spent (min) 24
[2023-08-22 16:17] VITALS: BP 136/90; BMI 24.7
[2023-08-22 17:16] VITALS: BP 138/88
== END 2023-08-22 16:40 | disposition home or self-care (01) ==
PROVIDERS: PCP Nurse Practitioner Family; Visit Provider Internal Medicine
DX: G30.0 Alzheimer's disease with early onset (principal); F02.A0 Dementia in other diseases classified elsewhere, mild, without behavioral disturbance, psychotic disturbance, mood disturbance, and anxiety; K59.09 Other constipation; I10 Essential (primary) hypertension; R10.30 Lower abdominal pain, unspecified
CPT/HCPCS: 99214

== ENCOUNTER 2023-09-11 08:52 | Outpatient (REF) | payer OTHER, SELFPAY ==
--- NOTE | ~2023-09-11 | US_ITS ---
EXAMINATION: US ABDOMEN COMPLETE CLINICAL INFORMATION: Unspecified abdominal pain. COMPARISON: None available. TECHNIQUE: Real-time imaging of the abdominal viscera. Limited visualization due to bowel gas. Limited visualization of pancreatic tail and head. Imaged portion of pancreatic body is unremarkable. FINDINGS: PANCREAS: Poorly visualized. ABDOMINAL AORTA: Unremarkable. INFERIOR VENA CAVA: Visualized portions are normal. LIVER: Liver measures 15.1 cm. Unremarkable in echogenicity. Limited visualization. GALLBLADDER: The gallbladder is physiologically distended without evidence of stones, sludge, polyps, wall thickening or pericholecystic fluid. COMMON BILE DUCT: Normal in caliber measuring 0.4 cm in diameter. RIGHT KIDNEY: No hydronephrosis. No renal calculi. Limited visualization. The kidney measures 9.8 cm in maximum dimension. LEFT KIDNEY: Mild fullness left renal pelvis. No renal calculi. Limited visualization. The kidney measures 10.7 cm in maximum dimension. SPLEEN: Normal. The spleen measures 8.9 cm in maximum dimension. FREE FLUID: None. US/US abdomen complete IMPRESSION: 1. Mild fullness left renal pelvis. No renal calculi. 2. Limited visualization due to bowel gas.
== END 2023-09-11 08:53 | disposition home or self-care (01) ==
LOC: HO.US 08:52
PROVIDERS: PCP Nurse Practitioner Family; Visit Provider Internal Medicine
DX: R10.9 Unspecified abdominal pain (principal)
CPT/HCPCS: 76700

== ENCOUNTER 2023-09-11 09:23 | Outpatient (REF) | payer OTHER, SELFPAY ==
[2023-09-11 09:46] LABS: MANUAL DIFF FLAG NO
[2023-09-11 10:37] LABS: Appearance Urine Clear; Color Urine Dark Yellow; Glucose Urine UA Negative (Negative); Leukocyte Esterase Urine Negative (Negative); Nitrite Urine Negative (Negative); Specific Gravity - Urine 1.015 (1.005-1.025); Urine Blood Negative (Negative); Urine Ketones Negative (Negative); Urine Protein Negative (Neg-Trace)
[2023-09-11 10:50] LABS: Basophils Percent Auto 0.9 % (0-2); Eosinophils Absolute Auto 0.1 X10*3/uL (0.0-0.4); Eosinophils Percent Auto 3.1 % (0-4); Hematocrit 45.3 % (42.0-52.0); Imm Gran Abs Auto 0.01 X10*3/uL (0.00-0.03); Imm Gran Pct Auto 0.3 % (0.0-0.4); Lymphocytes Absolute Auto 1.4 X10*3/uL (1.2-4.9); Lymphocytes Percent Auto 42.3 % (20-40); Mean Corpuscular HGB Conc 33.1 g/dl (31.0-36.0); Mean Corpuscular Hemoglobin 27.9 pg (27.0-33.0); Mean Corpuscular Volume 84.2 fL (80.0-98.0); Mean Platelet Volume 9.6 fL (9.4-12.4); Monocytes Absolute Auto 0.5 X10*3/uL (0.1-1.2); Monocytes Percent Auto 16.9 % (2-11); Neutrophils Absolute Auto 1.2 x10*3/uL (2.0-8.3); Neutrophils Percent Auto 36.5 % (45-73); Platelet Count 279 X10*3/uL (160-400); Red Blood Count 5.38 X10*6/uL (4.60-5.80); White Blood Count 3.2 X10*3/uL (4.8-10.8)
[2023-09-11 11:40] LABS: PSA,Total (Free>4and<10) 3.47 ng/mL (0.00-4.00)
[2023-09-11 11:46] LABS: Cholesterol 146 mg/dL (<200); HDL Cholesterol 38 mg/dL (>40); LDL Cholesterol Calculated 91 mg/dL (<100); Triglycerides 86 mg/dL (<150)
[2023-09-11 11:50] LABS: Thyroid Stimulating Hormone 2.15 uIU/mL (0.32-4.0)
[2023-09-11 12:00] LABS: Folate 7.6 ng/mL (> or = 4.0); Vitamin B12 649 pg/mL (200-900)
== END 2023-09-11 09:24 | disposition home or self-care (01) ==
LOC: HO.LAB 09:23
PROVIDERS: PCP Internal Medicine; Visit Provider Internal Medicine
DX: E55.9 Vitamin D deficiency, unspecified (principal); E53.8 Deficiency of other specified B group vitamins; K59.09 Other constipation; R30.0 Dysuria; I10 Essential (primary) hypertension; Z12.5 Encounter for screening for malignant neoplasm of prostate
CPT/HCPCS: 36415; 80061; 81003; 82306; 82607; 82746; 84153; 84443; 85025

== ENCOUNTER 2023-11-04 11:47 | Emergency (ER) | payer OTHER, SELFPAY ==
--- NOTE | ~2023-11-04 | CT_ITS ---
EXAMINATION: CT HEAD WITHOUT CONTRAST CLINICAL INFORMATION: History of head. Headache. COMPARISON: Brain MRI dated 12/22/2022. TECHNIQUE: Contiguous axial imaging was performed from the skullbase to vertex without intravenous administration of contrast. This CT examination was performed using dose optimization techniques as appropriate, variously including the following: *Automated exposure control *Adjustment of mA and/or kV according to patient size (this includes techniques or standardized protocols for targeted exams where dose is matched to indication/reason for exam; i.e. extremities or head) *Use of iterative reconstruction technique DLP: 627.14 mGy-cm. FINDINGS: There is no evidence of acute intracranial hemorrhage or territorial infarction. No abnormal mass effect or midline shift is seen. [place]ral[place] to white matter differentiation is well preserved. No extra-axial fluid collections are identified. [id number]-rb-[id number] generalized brain parenchymal volume loss is stable with commensurate mild ex vacuo prominence of the ventricles. Mild chronic white matter microangiopathic changes again noted. The osseous structures and soft tissues are normal. The mastoid air cells and visualized portions of the paranasal sinuses are well aerated. CT/CT head/brain wo IV con IMPRESSION: No acute intracranial pathology.
--- NOTE | ~2023-11-04 | CT_ITS ---
EXAMINATION: CT ABDOMEN AND PELVIS WITH CONTRAST CLINICAL INFORMATION: Abdominal pain, weight loss and family history of gastric cancer. COMPARISON: None available. TECHNIQUE: Multidetector volumetric images were obtained from the superior aspect of the liver through the pubic symphysis following administration 85 mL of Omnipaque 350 intravenous contrast. Sagittal and coronal reformatted images were obtained on the technologist's workstation. Oral contrast: No This CT examination was performed using dose optimization techniques as appropriate, variously including the following: *Automated exposure control *Adjustment of mA and/or kV according to patient size (this includes techniques or standardized protocols for targeted exams where dose is matched to indication/reason for exam; i.e. extremities or head) *Use of iterative reconstruction technique DLP: 1046 mGy-cm FINDINGS: LUNG BASES: There is bibasilar linear scar/subsegmental atelectasis. LIVER, GALLBLADDER, AND BILIARY TREE: The liver is normal in size, shape, and attenuation. No focal hepatic lesion or biliary ductal dilatation is present. The gallbladder is unremarkable with no evidence of radiopaque gallstones, gallbladder wall thickening, or obvious pericholecystic inflammatory changes. PANCREAS: Unremarkable. SPLEEN: Unremarkable. ADRENAL GLANDS: Unremarkable. KIDNEYS AND URETERS: The kidneys are normal in size, shape, and attenuation. No hydronephrosis, hydroureter, or calculi seen. No perinephric stranding. BLADDER: Unremarkable. GASTROINTESTINAL TRACT: There is a moderate stool burden, in particular within the rectosigmoid. No obstruction, free intraperitoneal air or abscess is seen. There is no focal bowel wall thickening. There is no significant diverticulosis or diverticulitis. The vermiform appendix appears normal. ABDOMINAL WALL: No significant hernia is appreciated. LYMPH NODES: Normal. VASCULAR: Unremarkable. PELVIC VISCERA: The prostate and seminal vesicles are unremarkable. OSSEOUS STRUCTURES: At L4-L5, there is moderately severe degenerative disc disease, with the endplate arthropathy and Schmorl's node formation. No acute or aggressive osseous abnormality is seen. CT/CT abdomen pelvis w IV con IMPRESSION: 1. Findings suggest possible constipation, without samira bowel obstruction noted. 2. There is no abdominopelvic mass, free fluid or lymphadenopathy. 3. No urinary calculus or obstruction is seen. 4. At L4-L5, there is moderately severe degenerative disc disease. Fleischner guidelines were followed.
[2023-11-04 11:59] VITALS: BP 135/91; PULSE 73; RESP 18; TEMP 36.6; O2SAT 98; BMI 23.2
--- NOTE | 2023-11-04 11:59 | ED.ABDPAIN ---
HPI - Abdominal Pain General Chief Complaint: Abdominal Pain Stated Complaint: Burning sensation stomach, Head injury Time Seen by Provider: 11/04/23 12:05 Source: patient and family Mode of arrival: ambulatory Limitations: no limitations History of Present Illness HPI narrative: This is a 63-year-old male who has a history of dementia, hypertension, hyperlipidemia who presents to the ER with complaints of intermittent abdominal pain, feeling full for the last month. Patient reports he has been eating well but over the last 3 months he is lost 30 lb unintentionally. He denies any vomiting, diarrhea, constipation. He has had some urinary frequency but no dysuria or hematuria. Denies any abdominal surgical history. He does have a family history of gastric cancer. Additionally patient reports on Monday he had a head strike on the garage door. There was no loss of consciousness. He had a mild headache after. He denies any dizziness, vision changes, vomiting, photophobia. No AC therapy use. Of note patient had a colonoscopy July 2023 which showed several polyps, no malignancy. Related Data Previous Rx's ?Medication ?Instructions ?Recorded magnesium oxide 400 mg (241.3 mg 400 mg PO BEDTIME 30 days #30 tabs 03/24/23 magnesium) tablet riboflavin (vitamin B2) 400 mg 400 mg PO DAILY 30 days #30 tabs 03/24/23 tablet amlodipine 5 mg tablet 5 mg PO DAILY #90 tabs 06/16/23 quetiapine 25 mg tablet 12.5 - 25 mg (0.5 - 1 x 25 mg) PO 07/10/23 BEDTIME 30 days #30 tabs docusate sodium 100 mg capsule 200 mg (2 x 100 mg) PO BEDTIME #60 08/08/23 (Colace) caps hydrocortisone 2.5 % topical cream 1 appl AR BID PRN hemorrhoids #30 08/08/23 with perineal applicator grams (Proctozone-HC) methylcellulose (laxative) 500 mg 500 mg PO TID #90 tabs 08/08/23 tablet (Citrucel) polyethylene glycol 3350 17 17 g PO DAILY #510 grams 08/08/23 gram/dose oral powder (Miralax) lisinopril 20 mg tablet 20 mg PO DAILY #90 tabs 08/28/23 memantine 28 mg capsule 28 mg PO DAILY 30 days #30 ea 08/28/23 sprinkle,extended release 24hr Allergies Allergy/AdvReac Type Severity Reaction Status Date / Time No Known Allergies Allergy Verified 11/04/23 12:02 Review of Systems Review of Systems Yes all other systems are reviewed and are negative Constitutional: Reports no additional constitutional complaints, Denies body ache(s), Denies chills, Denies fever(s), Denies headache(s), Denies weakness and Reports weight loss Eyes: Reports no additional eye complaints and Denies change in vision Reports system reviewed and no additional complaints, except as documented, Denies dizziness, Denies headache(s), Denies nasal congestion, Denies nasal discharge and Denies neck pain Cardiovascular: Reports no additional cardiovascular complaints, Denies chest pain, Denies leg edema and Denies dyspnea Respiratory: Reports no additional respiratory complaints, Denies cough and Denies dyspnea Gastrointestinal: Reports no additional gastrointestinal complaints, Reports abdominal pain, Denies diarrhea, Denies nausea and Denies vomiting Genitourinary: Denies hematuria, Denies oliguria, Denies difficulty urinating, Denies dysuria, Reports urinary frequency, Denies urinary hesitancy, Denies urinary incontinence and Denies urinary urgency Musculoskeletal: Reports no additional musculoskeletal complaints, Denies back pain, Denies arthralgias, Denies joint swelling, Denies neck pain, Denies numbness and Denies tingling Skin/Breast: Reports system reviewed and no additional complaints, except as docu and Denies rash Reports system reviewed and no additional complaints, except as documented, Denies Abnormal speech present, Denies dizziness, Denies headache(s), Denies numbness, Denies tingling and Denies weakness FOR[facility], LAT[facility] Past Medical History Attestation statement: The following information was validated with the patient. Source: old records reviewed and nursing notes reviewed Medical History Forgetfulness Hypertension Surgical History Hx of colonoscopy Family History Family History Mother Dementia Father Colon cancer Social History Social History Housing: House Alcohol intake: never Patient Tobacco Use Status: Never used Tobacco Smoked in Last 30 Days: No e-Cigarette/Vaping Use: Never Used Second Hand Smoke Exposure: No Use of substances other than those prescribed or required for medical reasons: No Advance Directives: No Advance Directives Information Provided: Yes Do you have a plan to hurt others: No Plan service: No Current occupational status: unemployed Cognitive needs: No Hearing needs: No Vision needs: No Physical Exam ED Vital Signs: Vital Signs - 24 hr 11/04/23 11:59 11/04/23 12:20 Temperature 98 F 97.4 F Pulse Rate 73 73 Respiratory Rate 18 18 Blood Pressure 135/91 H 158/99 H Pulse Oximetry 98 98 Oxygen Delivery Method Room Air Room Air BMI result Body Mass Index 23.2 Const General: cooperative, healthy appearing, comfortable and no acute distress Orientation/consciousness: patient oriented x3 Limitations: no limitations HENMT Head: Yes normal to inspection, No Shetty's sign and No raccoon eyes Ears: hearing grossly normal bilaterally General nose exam: Normal external nose present Face and sinus: Yes normal facial exam Mouth: Normal oral and palatal mucosa present Throat: Yes posterior oropharynx normal Eyes General: appearance normal, both eyes and all related structures Pupils: Equal, round and reactive pupils present Neck Neck: Yes normal visual inspection Chest Chest palpation & inspection: normal inspection of the chest Resp Effort & Inspection: normal respiratory effort Auscultation: clear to auscultation bilaterally Cardio Rate: regular rate Rhythm: regular rhythm Peripheral pulses: Peripheral pulses 2+ throughout GI Inspection: Yes normal to inspection Palpation (GI): Soft to palpation and nontender Auscultation: normal bowel sounds Back/Spine/Pelvis Thoracic/Lumbar Spine: thoracic and lumbar spine normal to inspection Skin General skin exam: no rashes or lesions noted Neuro General: patient oriented x3, no focal motor deficits and normal sensation to monofilament Cranial nerves: Yes Equal, round and reactive pupils present Cognition (Neuro): normal cognition Speech: No Abnormal speech present Gait exam (Neuro): Normal gait present Motor exam (neuro): 5/5 motor strength present throughout Extrem General: Yes normal to inspection Course Course Course Narrative: This is an RME performed by Alba Maddox CNP: Additional HPI, ROS, PE not included below will be deferred to primary provider. Patient is a 63-year-old male presenting to emergency department for evaluation of burning sensation to the abdomen, points to mid lateral sides x 3 weeks, urinary frequency. Head injury 3 days ago, reports garage door having slammed down on the left side of his head. Denies loss of consciousness immediately after. Has been having headaches since then. Denies use of anticoagulants. Exam: No focal neurological deficits, PERRL, ambulatory with a steady gait respirations regular even nonlabored Plan: Serum labs, urinalysis, would defer decision for radiographic imaging to primary provider Reevaluation(s) Reevaluation #1: Labs, UA, CT imaging shows no acute finding. Reviewed this with the patient and his family. I did recommend they follow up outpatient with GI and primary care doctor as he may need additional testing done. Reviewed worrisome signs and symptoms of when to return to the emergency room. Comfortable plan for discharge home. Medical Decision Making Medical Decision Making MDM Narrative: this is a 63-year-old male who has a history of dementia, hypertension, hyperlipidemia who presents to the ER with complaints of intermittent abdominal pain, feeling full for the last month.? Patient reports he has been eating well but over the last 3 months he is lost 30 lb unintentionally.? He denies any vomiting, diarrhea, constipation.? He has had some urinary frequency but no dysuria or hematuria.? Denies any abdominal surgical history.? He does have a family history of gastric cancer.? Additionally patient reports on Monday he had a head strike on the garage door.? There was no loss of consciousness.? He had a mild headache after.? He denies any dizziness, vision changes, vomiting, photophobia.? No AC therapy use. Normal neuro with no focal deficits Abdomen soft, mild diffuse tenderness WIll obtain labs, UA, CT imaging Differential Diagnosis Differential Diagnoses: The differential diagnosis associated with the presentation includes diverticulitis, uti, malignancy ICH, concussion, skull fracture Admission/Observation Consideration of admission/observation: Escalation of care including admission/observation considered Normal labs, urine testing and CT imaging with no need for additional w/u in ER, will need f/u outpatient Lab Data MDM Lab Attestation statement: I reviewed the patient's lab results. 11/04/23 12:11 11/04/23 12:11 Labs: Lab Results 11/04/23 Range/Units 12:11 WBC 3.8 L (4.8-10.8) X10*3/uL RBC 5.31 (4.60-5.80) X10*6/uL Hgb 15.0 (14.0-18.0) g/dl Hct 44.3 (42.0-52.0) % MCV 83.4 (80.0-98.0) fL MCH 28.2 (27.0-33.0) pg MCHC 33.9 (31.0-36.0) g/dl RDW 15.1 (11.0-16.0) % Plt Count 261 (160-400) X10*3/uL MPV 9.3 L (9.4-12.4) fL Immature Gran % (Auto) 0.3 (0.0-0.4) % Neut % (Auto) 58.5 (45-73) % Lymph % (Auto) 26.0 (20-40) % Preston % (Auto) 12.9 H (2-11) % Eos % (Auto) 1.3 (0-4) % Baso % (Auto) 1.0 (0-2) % Lymph # (Auto) 1.0 L (1.2-4.9) X10*3/uL Preston # (Auto) 0.5 (0.1-1.2) X10*3/uL Eos # (Auto) 0.1 (0.0-0.4) X10*3/uL Baso # (Auto) 0.0 (0.0-0.2) X10*3/uL Abs Immat Gran (auto) 0.01 (0.00-0.03) X10*3/uL Absolute Neuts (auto) 2.2 (2.0-8.3) x10*3/uL Absolute Nucleated RBC 0.000 (0.0-0.012) X10*3/uL Nucleated RBC % (auto) 0.0 (0.0-0.2) /100WBC Sodium 142 (135-145) mmol/L Potassium 3.7 (3.3-5.1) mmol/L Chloride 107 (96-108) mmol/L Carbon Dioxide 26 (22-29) mmol/L Anion Gap 13 (12-20) BUN 10 (9-16) mg/dL Creatinine 0.92 (0.5-1.4) mg/dL Estim Creat Clear Calc 83.2 Estimated GFR > 60 Random Glucose 114 (60-115) mg/dL Calcium 9.4 (8.4-10.2) mg/dL Magnesium 1.9 (1.6-2.6) mg/dL Total Bilirubin 0.3 (0.0-1.0) mg/dL AST 17 (5-37) U/L ALT 14 (0-40) U/L Alkaline Phosphatase 78 (39-117) U/L Total Protein 7.1 (6.5-8.0) g/dL Albumin 4.0 (3.5-5.0) g/dL Lipase 27 (8-78) U/L Urine Color Dark Yellow Urine Appearance Clear Urine pH 6.5 (5.0-9.0) Ur Specific [place] <= 1.005 (1.005-1.025) Urine Protein Negative (Neg-Trace) mg/dL Urine Glucose (UA) Negative (Negative) mg/dL Urine Ketones Negative (Negative) mg/dL Urine Blood Negative (Negative) Urine Nitrite Negative (Negative) Ur Leukocyte Esterase Trace H (Negative) Urine RBC 0-2 (0-2) /HPF Urine WBC 0-5 (0-5) /HPF Ur Squamous Epith Cells 0-2 (0-2) /HPF Urine Bacteria None Seen (None Seen) Hyaline Casts 0-2 (0-2) /LPF Independent Interpretation I performed an independent interpretation of an: CT Scan Interpretation: I independently reviewed the CT scan head/abdomen/pelvis and agree with the rad report Radiology Impression Discussion of test interpretation with radiology: I have reviewed the radiologist's reading. Radiologist Impression: [place] [id number] CT Scan Report Signed Patient: Levon Nuñez MR#: [id number] : 1960 Acct:[id number] Age/Sex: 63 / M ADM Date: 11/04/23 Loc: HO.ED Attending Dr: Ordering Physician: Julia Gonzalez NP Date of Service: 11/04/23 Procedure(s): CT head/brain wo IV con Accession Number(s): [id number] cc: Physician,Unknown ; Julia Gonzalez NP~ EXAMINATION: CT HEAD WITHOUT CONTRAST CLINICAL INFORMATION: History of head. Headache. COMPARISON: Brain MRI dated 12/22/2022. TECHNIQUE: Contiguous axial imaging was performed from the skullbase to vertex without intravenous administration of contrast. This CT examination was performed using dose optimization techniques as appropriate, variously including the following: *Automated exposure control *Adjustment of mA and/or kV according to patient size (this includes techniques or standardized protocols for targeted exams where dose is matched to indication/reason for exam; i.e. extremities or head) *Use of iterative reconstruction technique DLP: 627.14 mGy-cm. FINDINGS: There is no evidence of acute intracranial hemorrhage or territorial infarction. No abnormal mass effect or midline shift is seen. [place]ral[place] to white matter differentiation is well preserved. No extra-axial fluid collections are identified. [id number] generalized brain parenchymal volume loss is stable with commensurate mild ex vacuo prominence of the ventricles. Mild chronic white matter microangiopathic changes again noted. The osseous structures and soft tissues are normal. The mastoid air cells and visualized portions of the paranasal sinuses are well aerated. CT/CT head/brain wo IV con IMPRESSION: No acute intracranial pathology. [address] [address] [address] Scan Report Signed Patient: Levon Nuñez MR#: [id number] : 1960 Acct:[id number] Age/Sex: 63 / M ADM Date: 11/04/23 Loc: .ED Attending Dr: Ordering Physician: Julia Gonzalez NP Date of Service: 11/04/23 Procedure(s): CT abdomen pelvis w IV con Accession Number(s): [id number] cc: Physician,Unknown ; Julia Gonzalez NP~ EXAMINATION: CT ABDOMEN AND PELVIS WITH CONTRAST CLINICAL INFORMATION: Abdominal pain, weight loss and family history of gastric cancer. COMPARISON: None available. TECHNIQUE: Multidetector volumetric images were obtained from the superior aspect of the liver through the pubic symphysis following administration 85 mL of Omnipaque 350 intravenous contrast. Sagittal and coronal reformatted images were obtained on the technologist's workstation. Oral contrast: No This CT examination was performed using dose optimization techniques as appropriate, variously including the following: *Automated exposure control *Adjustment of mA and/or kV according to patient size (this includes techniques or standardized protocols for targeted exams where dose is matched to indication/reason for exam; i.e. extremities or head) *Use of iterative reconstruction technique DLP: 1046 mGy-cm FINDINGS: LUNG BASES: There is bibasilar linear scar/subsegmental atelectasis. LIVER, GALLBLADDER, AND BILIARY TREE: The liver is normal in size, shape, and attenuation. No focal hepatic lesion or biliary ductal dilatation is present. The gallbladder is unremarkable with no evidence of radiopaque gallstones, gallbladder wall thickening, or obvious pericholecystic inflammatory changes. PANCREAS: Unremarkable. SPLEEN: Unremarkable. ADRENAL GLANDS: Unremarkable. KIDNEYS AND URETERS: The kidneys are normal in size, shape, and attenuation. No hydronephrosis, hydroureter, or calculi seen. No perinephric stranding. BLADDER: Unremarkable. GASTROINTESTINAL TRACT: There is a moderate stool burden, in particular within the rectosigmoid. No obstruction, free intraperitoneal air or abscess is seen. There is no focal bowel wall thickening. There is no significant diverticulosis or diverticulitis. The vermiform appendix appears normal. ABDOMINAL WALL: No significant hernia is appreciated. LYMPH NODES: Normal. VASCULAR: Unremarkable. PELVIC VISCERA: The prostate and seminal vesicles are unremarkable. OSSEOUS STRUCTURES: At L4-L5, there is moderately severe degenerative disc disease, with the endplate arthropathy and Schmorl's node formation. No acute or aggressive osseous abnormality is seen. CT/CT abdomen pelvis w IV con IMPRESSION: 1. Findings suggest possible constipation, without samira bowel obstruction noted. 2. There is no abdominopelvic mass, free fluid or lymphadenopathy. 3. No urinary calculus or obstruction is seen. 4. At L4-L5, there is moderately severe degenerative disc disease. Fleischner guidelines were followed. Independent Historian Clinical information obtained from an independent historian. History obtained from or confirmed by: Spouse External Record Review External record reviewed: Outpatient record Medications Administered Discontinued Medications Generic Name Dose Route Start Last Admin Trade Name Freq PRN Reason Stop Dose Admin Iohexol 100 ml 11/04/23 13:32 11/04/23 13:33 Iohexol 350 Mg/Ml 100 Ml Infus..Btl IV 11/04/23 13:33 85 ml ONCE ONE Administration Discharge Plan Discharge Clinical Impression: Abdominal pain Qualifiers: Abdominal location: lower abdomen, unspecified Qualified Code(s): R10.30 - Lower abdominal pain, unspecified Patient Disposition: Home, Self-Care Instructions: Abdominal Pain (ED) Additional Instructions: Due to your symptoms of abdominal pain and weight loss I do believe that it is important for you to follow-up outpatient with Gastroenterology. You may need additional testing done. You should also follow-up with her primary care doctor to determine if you need any other testing. Please return for any worsening symptoms Prescriptions: No Action amlodipine 5 mg tablet 5 mg PO DAILY Qty: 90 1RF memantine 28 mg capsule,sprinkle,ER 24hr 28 mg PO DAILY 30 Days Qty: 30 2RF lisinopril 20 mg tablet 20 mg PO DAILY Qty: 90 0RF magnesium oxide 400 mg (241.3 mg magnesium) tablet 400 mg PO BEDTIME 30 Days Qty: 30 6RF Rx Instructions: may hold for loose stools riboflavin (vitamin B2) 400 mg tablet 400 mg PO DAILY 30 Days Qty: 30 6RF quetiapine 25 mg tablet 12.5 - 25 mg PO BEDTIME 30 Days Qty: 30 3RF Citrucel 500 mg tablet 500 mg PO TID Qty: 90 5RF hydrocortisone [Proctozone-HC] 2.5 % cream with perineal applicator 1 appl AR BID PRN (Reason: hemorrhoids) Qty: 30 3RF Rx Instructions: apply AR BID prn polyethylene glycol 3350 [Miralax] 17 gram/dose powder 17 g PO DAILY Qty: 510 6RF docusate sodium [Colace] 100 mg capsule 200 mg PO BEDTIME Qty: 60 5RF Referrals: Tomi Sanchez MD [Physician] - 1 week Print Language: Albanian
[2023-11-04 12:16] LABS: MANUAL DIFF FLAG NO
[2023-11-04 12:17] LABS: Eosinophils Absolute Auto 0.1 X10*3/uL (0.0-0.4); Eosinophils Percent Auto 1.3 % (0-4); Hematocrit 44.3 % (42.0-52.0); Imm Gran Abs Auto 0.01 X10*3/uL (0.00-0.03); Imm Gran Pct Auto 0.3 % (0.0-0.4); Mean Corpuscular HGB Conc 33.9 g/dl (31.0-36.0); Mean Corpuscular Hemoglobin 28.2 pg (27.0-33.0); Mean Corpuscular Volume 83.4 fL (80.0-98.0); Mean Platelet Volume 9.3 fL (9.4-12.4); Monocytes Absolute Auto 0.5 X10*3/uL (0.1-1.2); Monocytes Percent Auto 12.9 % (2-11); Neutrophils Absolute Auto 2.2 x10*3/uL (2.0-8.3); Neutrophils Percent Auto 58.5 % (45-73); Platelet Count 261 X10*3/uL (160-400); Red Blood Count 5.31 X10*6/uL (4.60-5.80); Red Cell Distribution Width 15.1 % (11.0-16.0); White Blood Count 3.8 X10*3/uL (4.8-10.8)
[2023-11-04 12:19] LABS: Appearance Urine Clear; Color Urine Dark Yellow; Glucose Urine UA Negative (Negative); Leukocyte Esterase Urine Trace (Negative); Nitrite Urine Negative (Negative); PH 6.5 (5.0-9.0); Specific Gravity - Urine <= 1.005 (1.005-1.025); UMIC TRIGGER UACC YES; Urine Blood Negative (Negative); Urine Ketones Negative (Negative); Urine Protein Negative (Neg-Trace)
[2023-11-04 12:20] VITALS: BP 158/99; PULSE 73; RESP 18; TEMP 36.3; O2SAT 98
--- NOTE | 2023-11-04 12:30 | PC.NURSE ---
Pt presents to ED from home, reports generalized abdominal pain X1 month, burning sensation. Pt reports his urine has been darker than normal as well. Reports minor pain at this time, 07/12. Reports approx 30 lb weight loss in past 6 months, normal PO intake. Pt also reports he hit his head on garage door this past monday, denies any LOC or fall. Denies any SOB, CP, N/V/D. Pt is alert and oriented, breathing even and unlabored, skin WNL. ABD soft, non-distended. VSS.
[2023-11-04 12:34] LABS: Bacteria Urine None Seen (None Seen); Hyaline Casts Urine 0-2 /LPF (0-2); RBC Urine 0-2 /HPF (0-2); Squamous Epithelial Cell Urine 0-2 /HPF (0-2); WBC Urine 0-5 /HPF (0-5)
[2023-11-04 13:08] LABS: Alanine Aminotransferase 14 U/L (0-40); Alkaline Phosphatase 78 U/L (39-117); Anion Gap 13 (12-20); Aspartate Amino Transferase 17 U/L (5-37); Bilirubin Total 0.3 mg/dL (0.0-1.0); Blood Urea Nitrogen 10 mg/dL (9-16); Calcium 9.4 mg/dL (8.4-10.2); Carbon Dioxide 26 mmol/L (22-29); Chloride 107 mmol/L (96-108); Creatinine Clr Calc Pharmacy 83.2; Estimated Glomerular Filt Rate > 60; Glucose Random 114 mg/dL (60-115); Lipase 27 U/L (8-78); Magnesium 1.9 mg/dL (1.6-2.6); Potassium 3.7 mmol/L (3.3-5.1); Sodium 142 mmol/L (135-145); Total Protein 7.1 g/dL (6.5-8.0)
[2023-11-04] MEDS: iohexoL 350 MG/ML 100 ML INFUS..BTL IV (13:33)
[2023-11-04 15:13] VITALS: BP 158/99; PULSE 73; RESP 18; TEMP 36.3; O2SAT 98
== END 2023-11-04 15:15 | disposition home or self-care (01) ==
PROVIDERS: Nurse Practitioner Family; Emergency Provider Emergency Medicine
DX: R10.30 Lower abdominal pain, unspecified (principal); R51.9 Headache, unspecified; R35.0 Frequency of micturition; R63.4 Abnormal weight loss; Z68.23 Body mass index [BMI] 23.0-23.9, adult; Z80.0 Family history of malignant neoplasm of digestive organs
CPT/HCPCS: 36415; 70450; 74177; 80053; 81001; 83690; 83735; 85025; 99284; Q9967

== ENCOUNTER 2024-01-01 13:30 | Outpatient (AMB) | payer OTHER, SELFPAY ==
--- NOTE | 2024-01-01 13:34 | A.OFFPC_ITS ---
Vital Signs 01/01/24 13:38 01/01/24 13:52 Height 5 ft 9 in Weight 156 lb BMI 23.0 BP 132/90 H 132/80 Blood Pressure Location Lt brachial Lt brachial Position Sitting Sitting Pulse 60 Pulse Source Pulse Oximeter Pulse Oximetry (%) 97 Oxygen Delivery Method Room Air Intake Visit Reasons: bp Veterinary Radiologist Required: No Accompanied by: Friend Allergies No Known Allergies Allergy (Verified 01/01/24 13:52) Medication List - Last Reconciled 01/01/24 by Maribeth Barros MD amlodipine 5 mg PO DAILY docusate sodium (Colace) 200 mg (2 x 100 mg) PO BEDTIME hydrocortisone 2.5% (Proctozone-HC) 1 appl [place] BID PRN lisinopril 20 mg PO DAILY magnesium oxide 400 mg PO BEDTIME 30 days memantine 28 mg PO DAILY 30 days methylcellulose (laxative) (Citrucel) 500 mg PO TID polyethylene glycol 3350 (Miralax) 17 grams PO DAILY quetiapine 12.5 - 25 mg (0.5 - 1 x 25 mg) PO BEDTIME 30 days riboflavin (vitamin B2) 400 mg PO DAILY 30 days Tobacco use date assessed: 08/22/23 Dental Screening Dental Screen Date: 08/22/23 HPI HPI Comments History of Present Illness Details This is a 63-year-old male with hypertension, chronic constipation and Alzheimer's dementia that comes today accompanied by which is the technical support assistant complaining of nocturia. Blood pressure has improved. Constipation stable with medications. Alzheimer's dementia is follow by Neurology and he is awake, alert and oriented to person and place but not to time. For his nocturia I will refer him to Urology. Denies any chest pain or shortness on breath. [facility] Medical History (Updated 01/01/24 @ 13:58 by Maribeth Barros MD) Forgetfulness Hypertension Surgical History Hx of colonoscopy Family History Mother Dementia Father Colon cancer Social History Housing: House Alcohol intake: never Patient Tobacco Use Status: Never used Tobacco e-Cigarette/Vaping Use: Never Used Second Hand Smoke Exposure: No service: No Current occupational status: unemployed Cognitive needs: No Hearing needs: No Vision needs: No Questionnaire Thrive Questionnaire Date Thrive assessed: 08/22/23 SAVITA-7 AMB Questionnaire SAVITA-7 Date SAVITA - 7 assessed: 08/22/23 Source: Developed by Drs. Gonzales Dennison, Kary Herrera, Adalberto Duarte and colleagues, with an educational bj from [employer]. Review of Systems Const All systems reviewed & are unremarkable except as noted in HPI and below Card Denies chest pain at rest, Denies chest pain with activity, Denies edema, Denies irregular heart rhythm, Denies claudication, Denies dyspnea, Denies dyspnea on exertion, Denies orthopnea, Denies paroxysmal nocturnal dyspnea and Denies slow heart rate Resp Denies cough, Denies dyspnea and Denies dyspnea on exertion Musc Denies abnormal gait, Denies atrophy, Denies deformity and Denies limited range of motion Skin/Breast Denies bleeding lesions, Denies changing lesions and Denies rash Neuro Denies abnormal gait, Denies behavioral changes, Denies confusion and Denies lack of coordination Psych Denies behavioral changes and Denies confusion Physical exam (Primary Care) Vital Signs: Last Vital Signs Pulse 60 01/01/24 13:38 BP 132/90 H 01/01/24 13:38 Pulse Ox 97 01/01/24 13:38 Oxygen Delivery Method Room Air 01/01/24 13:38 BMI result Body Mass Index 23.0 Tobacco/Smoking Status: Tobacco use Status Tobacco use date assessed 08/22/23 01/01/24 13:39 Patient Tobacco Use Status Never used Tobacco 01/01/24 13:39 Tobacco use type 03/24/23 11:15 e-Cigarette/Vaping Use Never Used 01/01/24 13:39 Thrive Assessment: Date of Thrive Assessment Date Thrive assessed 08/22/23 01/01/24 13:39 Const General: No confusion Orientation/consciousness: patient oriented x3 and No confusion HENMT Head: Yes normal to inspection, Yes normocephalic and Yes atraumatic Ears: external ears normal Eyes General: appearance normal, both eyes and all related structures Eyelids: Yes eyelids normal Conjunctivae: conjunctivae normal Neck Neck: Yes normal visual inspection and Yes supple Resp Effort & Inspection: normal respiratory effort Auscultation: clear to auscultation bilaterally Cardio Jugular venous distension: no JVD Rate: regular rate Rhythm: regular rhythm Heart sounds: S1 normal heart sound present and S2 normal heart sound present GI Inspection: Yes normal to inspection Palpation (GI): Soft to palpation and nontender Auscultation: normal bowel sounds Skin General skin exam: no rashes or lesions noted Neuro General: patient oriented x3, no focal motor deficits and No confusion Extrem General: Yes full ROM Psych Appearance: grossly normal Assessment and Plan Assessment & Plan (1) Alzheimer's dementia: Code(s): G30.9 - Alzheimer's disease, unspecified; F02.80 - Dementia in other diseases classified elsewhere, unspecified severity, without behavioral disturbance, psychotic disturbance, mood disturbance, and anxiety Qualifiers: Alzheimer's disease onset: early onset Dementia severity: mild Dementia behavioral or psychological symptom: without behavioral, psychotic, or mood disturbance or anxiety Qualified Code(s): G30.0 - Alzheimer's disease with early onset; F02.A0 - Dementia in other diseases classified elsewhere, mild, without behavioral disturbance, psychotic disturbance, mood disturbance, and anxiety Plan: Continue memantine. Follow-up with Neurology. (2) Hypertension: Code(s): I10 - Essential (primary) hypertension Qualifiers: Hypertension type: primary hypertension Qualified Code(s): I10 - Essential (primary) hypertension Plan: Continue lisinopril and amlodipine. Blood pressure goal is equal or less than 130/80. (3) Chronic constipation: Comment: Bowel regimen Code(s): K59.09 - Other constipation Plan: Continue Citrucel, docusate and MiraLax as needed for constipation. (4) Nocturia: Code(s): R35.1 - Nocturia Plan: Referred to urology. Orders: Referrals Urology Referral R35.1 - Nocturia Medications: Refilled quetiapine 12.5 - 25 mg (0.5 - 1 x 25 mg) PO BEDTIME 30 days 30 tabs 3RF Coding Level of Care Code Est Pt Level 4 (38153) Complex EM visit Add On G2211 Diagnoses Mild early onset Alzheimer's dementia without behavioral disturbance, psychotic disturbance, mood disturbance, or anxiety G30.0; F02.A0 Alzheimer's disease onset: early onset Dementia severity: mild Dementia behavioral or psychological symptom: without behavioral, psychotic, or mood disturbance or anxiety Primary hypertension I10 Hypertension type: primary hypertension Chronic constipation K59.09 Nocturia R35.1 Time Spent (min) 22
[2024-01-01 13:38] VITALS: BP 132/90; PULSE 60; O2SAT 97; BMI 23.0
[2024-01-01 13:52] VITALS: BP 132/80
== END 2024-01-01 14:04 | disposition home or self-care (01) ==
PROVIDERS: PCP Nurse Practitioner Family; Visit Provider Internal Medicine
DX: G30.0 Alzheimer's disease with early onset (principal); F02.A0 Dementia in other diseases classified elsewhere, mild, without behavioral disturbance, psychotic disturbance, mood disturbance, and anxiety; I10 Essential (primary) hypertension; K59.09 Other constipation; R35.1 Nocturia
CPT/HCPCS: 99214; G2211

== ENCOUNTER 2024-01-22 11:41 | Outpatient (REF) | payer OTHER, SELFPAY ==
[2024-01-22 12:08] LABS: MANUAL DIFF FLAG NO
[2024-01-22 12:23] LABS: Partial Thromboplastin Time 29.4 SEC (26.0-36.8)
[2024-01-22 12:54] LABS: Basophils Absolute Auto 0.1 X10*3/uL (0.0-0.2); Eosinophils Absolute Auto 0.1 X10*3/uL (0.0-0.4); Eosinophils Percent Auto 1.7 % (0-4); Hematocrit 44.6 % (42.0-52.0); Imm Gran Abs Auto 0.01 X10*3/uL (0.00-0.03); Imm Gran Pct Auto 0.3 % (0.0-0.4); Lymphocytes Absolute Auto 1.1 X10*3/uL (1.2-4.9); Mean Corpuscular HGB Conc 33.6 g/dl (31.0-36.0); Mean Corpuscular Hemoglobin 28.6 pg (27.0-33.0); Mean Platelet Volume 9.4 fL (9.4-12.4); Monocytes Absolute Auto 0.4 X10*3/uL (0.1-1.2); Monocytes Percent Auto 13.2 % (2-11); Neutrophils Absolute Auto 1.4 x10*3/uL (2.0-8.3); Neutrophils Percent Auto 45.8 % (45-73); Platelet Count 265 X10*3/uL (160-400); Red Blood Count 5.25 X10*6/uL (4.60-5.80); Red Cell Distribution Width 15.3 % (11.0-16.0)
[2024-01-22 13:44] LABS: Vitamin B12 871 pg/mL (200-900)
== END 2024-01-22 11:42 | disposition home or self-care (01) ==
LOC: HO.LAB 11:41
PROVIDERS: PCP Internal Medicine; Visit Provider Psychiatry & Neurology Neurology
DX: F03.918 Unspecified dementia, unspecified severity, with other behavioral disturbance (principal)
CPT/HCPCS: 36415; 82607; 85025; 85610; 85730

== ENCOUNTER 2024-01-22 12:36 | Outpatient (AMB) | payer OTHER, SELFPAY ==
--- NOTE | 2024-01-22 12:37 | A.OFFPC_ITS ---
Vital Signs 01/22/24 12:38 Height 5 ft 9 in Weight 157 lb BMI 23.2 BP 178/100 H Blood Pressure Location Lt brachial Position Sitting Intake Visit Reasons: Annual Exam Intake Note: Patient here for an annual physical exam Exploration Driller Required: No Accompanied by: Spouse Allergies No Known Allergies Allergy (Verified 01/22/24 12:46) Medication List - Last Reconciled 01/22/24 by Maribeth Barros MD amlodipine 5 mg PO DAILY docusate sodium (Colace) 200 mg (2 x 100 mg) PO BEDTIME hydrocortisone 2.5% (Proctozone-HC) 1 appl [place] BID PRN lisinopril 20 mg PO DAILY magnesium oxide 400 mg PO BEDTIME 30 days memantine 28 mg PO DAILY 30 days methylcellulose (laxative) (Citrucel) 500 mg PO TID polyethylene glycol 3350 (Miralax) 17 grams PO DAILY quetiapine 12.5 - 25 mg (0.5 - 1 x 25 mg) PO BEDTIME 30 days riboflavin (vitamin B2) 400 mg PO DAILY 30 days Tobacco use date assessed: 08/22/23 Dental Screening Dental Screen Date: 08/22/23 HPI HPI Comments History of Present Illness Details This is a 63-year-old male with Alzheimer's dementia that comes accompanied by dumping machine operator which is his for his physical exam. Colonoscopy done 2023. Dementia is follow by Neurology and has not significantly changed. He has not oriented to time but he is oriented to person and place. Has lumbar degenerative disc disease and has lost weight and will benefit from having a donut shape seat cushion to avoid pain. [facility] Medical History (Updated 01/22/24 @ 13:00 by Maribeth Barros MD) Forgetfulness Hypertension Surgical History Hx of colonoscopy Family History (Updated 01/22/24 @ 12:51 by Maribeth Barros MD) Mother Dementia Father Colon cancer Social History (Updated 01/22/24 @ 12:51 by Maribeth Barros MD) Housing: House Alcohol intake: never Patient Tobacco Use Status: Former Tobacco user e-Cigarette/Vaping Use: Never Used Second Hand Smoke Exposure: No service: No Current occupational status: unemployed Cognitive needs: No Hearing needs: No Vision needs: No Questionnaire Thrive Questionnaire Date Thrive assessed: 08/22/23 SAVITA-7 AMB Questionnaire SAVITA-7 Date SAVITA - 7 assessed: 08/22/23 Source: Developed by Drs. Gonzales Dennison, Kary Herrera, Adalberto Duarte and colleagues, with an educational bj from [employer]. Review of Systems Const All systems reviewed & are unremarkable except as noted in HPI and below Card Denies chest pain at rest, Denies chest pain with activity, Denies edema, Denies irregular heart rhythm, Denies claudication, Denies dyspnea, Denies dyspnea on exertion, Denies orthopnea, Denies paroxysmal nocturnal dyspnea and Denies slow heart rate Resp Denies cough, Denies dyspnea and Denies dyspnea on exertion GI Denies abdominal pain, Denies change in bowel habits, Denies excessive flatus, Denies nausea and Denies vomiting Neuro Reports memory loss Psych Reports memory loss Physical exam (Primary Care) Vital Signs: Last Vital Signs BP 178/100 H 01/22/24 12:38 BMI result Body Mass Index 23.2 Tobacco/Smoking Status: Tobacco use Status Tobacco use date assessed 08/22/23 01/22/24 12:45 Patient Tobacco Use Status Never used Tobacco 01/22/24 12:45 Tobacco use type 03/24/23 11:15 e-Cigarette/Vaping Use Never Used 01/22/24 12:45 Thrive Assessment: Date of Thrive Assessment Date Thrive assessed 08/22/23 01/22/24 12:45 [facility] Head: Yes normal to inspection, Yes normocephalic and Yes atraumatic Ears: external ears normal Eyes General: appearance normal, both eyes and all related structures Eyelids: Yes eyelids normal Conjunctivae: conjunctivae normal Neck Neck: Yes normal visual inspection and Yes supple Resp Effort & Inspection: normal respiratory effort Auscultation: clear to auscultation bilaterally Cardio Jugular venous distension: no JVD Rate: regular rate Rhythm: regular rhythm Heart sounds: S1 normal heart sound present and S2 normal heart sound present GI Inspection: Yes normal to inspection Palpation (GI): Soft to palpation and nontender Auscultation: normal bowel sounds Skin General skin exam: no rashes or lesions noted Neuro General: no focal motor deficits Extrem General: Yes full ROM Psych Appearance: grossly normal Assessment and Plan Assessment & Plan (1) Physical exam: Code(s): Z00.00 - Encounter for general adult medical examination without abnormal findings Plan: Repeat in a year. (2) Alzheimer's dementia: Code(s): G30.9 - Alzheimer's disease, unspecified; F02.80 - Dementia in other diseases classified elsewhere, unspecified severity, without behavioral disturbance, psychotic disturbance, mood disturbance, and anxiety Qualifiers: Alzheimer's disease onset: early onset Dementia severity: mild Dementia behavioral or psychological symptom: without behavioral, psychotic, or mood disturbance or anxiety Qualified Code(s): G30.0 - Alzheimer's disease with early onset; F02.A0 - Dementia in other diseases classified elsewhere, mild, without behavioral disturbance, psychotic disturbance, mood disturbance, and anxiety Plan: Continue memantine. Follow-up with Neurology. (3) Lumbar degenerative disc disease: Code(s): M51.36 - Other intervertebral disc degeneration, lumbar region Plan: Seat cushion ordered. Medications: New lisinopril 40 mg PO DAILY 90 days 90 tabs 1RF [seat cushion donut shape] As directed 1 ea 0RF M51.36 - Other intervertebral disc degeneration, lumbar region Discontinued lisinopril Discontinued Reason: Patient Completed Course 20 mg PO DAILY 90 tabs 0RF Coding Level of Care Code Est Pt Level 3 (32624) Est Pt Prev Care 40-64y(41173) Diagnoses Physical exam Z00.00 Mild early onset Alzheimer's dementia without behavioral disturbance, psychotic disturbance, mood disturbance, or anxiety G30.0; F02.A0 Alzheimer's disease onset: early onset Dementia severity: mild Dementia behavioral or psychological symptom: without behavioral, psychotic, or mood disturbance or anxiety Lumbar degenerative disc disease M51.36 Time Spent (min) 33
[2024-01-22 12:38] VITALS: BP 178/100; BMI 23.2
== END 2024-01-22 13:00 | disposition home or self-care (01) ==
PROVIDERS: PCP Internal Medicine; Visit Provider Internal Medicine
DX: Z00.00 Encounter for general adult medical examination without abnormal findings (principal); G30.0 Alzheimer's disease with early onset; F02.A0 Dementia in other diseases classified elsewhere, mild, without behavioral disturbance, psychotic disturbance, mood disturbance, and anxiety; M51.36 Other intervertebral disc degeneration, lumbar region
CPT/HCPCS: 99213; 99396

== ENCOUNTER 2024-02-28 13:54 | Outpatient (AMB) | payer OTHER, SELFPAY ==
[2024-02-28 13:59] VITALS: BP 130/74; PULSE 78; O2SAT 98; BMI 23.3
--- NOTE | 2024-02-28 13:59 | A.OFFVIS_ITS ---
Vital Signs 02/28/24 13:59 Height 5 ft 9 in Weight 158 lb BMI 23.3 BP 130/74 Blood Pressure Location Rt brachial Position Sitting Pulse 78 Pulse Source Pulse Oximeter Pulse Oximetry (%) 98 Oxygen Delivery Method Room Air Intake Visit Reasons: 3 mnts f/u appt Intake Note: Patient presents for 3 month follow up. Allergies No Known Allergies Allergy (Verified 02/28/24 14:04) HPI Comments Details: 63-yr-old male presents for f/u visit, pt is accompanied by his . Pt denies any significant interval medical changes. Pt had had initial cognitive consult in [place], had EEG- results pending. He is scheduled for an LP on 03/08/24. 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 Each of pt's sons has a ?each of his sons is at 50% risk for inheriting the variant and developing early onset AD, however pt has not been able to contact his sons. Pt reports he is trying to adjust to his new diagnosis. Pt asks what is the difference between Alzheimer's and dementia. He states he has good days and some days that are worse. There are days where he is more confused. He may forget where his bedroom, bathroom, or refrigerator is. He does have days where he has trouble knowing what to say, choosing his words, losing his train of thought, changing topics, and following along during conversations. He is prone to misplacing things- states all over the place. She often has to look for things he has misplaced or moved. He is eating ok, sometimes better than others. Weight is stable. He lives with his and granddtr and grandchildren- pt states 3-4 grandchildren. They live in a 1 floor house. [facility] Medical History Forgetfulness Hypertension Surgical History Hx of colonoscopy Family History Mother Dementia Father Colon cancer Social History Housing: House Alcohol intake: never Patient Tobacco Use Status: Former Tobacco user e-Cigarette/Vaping Use: Never Used Second Hand Smoke Exposure: No service: No Current occupational status: unemployed Cognitive needs: No Hearing needs: No Vision needs: No Review of Systems Const All systems reviewed & are unremarkable except as noted in HPI and below Physical Exam Vital Signs: Last Vital Signs Pulse 78 02/28/24 13:59 BP 130/74 02/28/24 13:59 Pulse Ox 98 02/28/24 13:59 Oxygen Delivery Method Room Air 02/28/24 13:59 BMI result Body Mass Index 23.3 Const General: cooperative and no acute distress HEENT Head: Yes normocephalic Resp Effort & Inspection: normal respiratory effort and able to speak in complete sentences Neuro Other: He is able to state his 's name- Maritza. He can state his son is Yeison, but cannot recall his other son's name, Levon until his gives him a prompt. He does talk to Levon more than Yeison. Unable to state date, month, year. States it is summer. He states we are in a hospital in [facility]. Unsure who is the President. General: gait normal and CN's II-XI intact bilaterally Motor exam (neuro): 5/5 motor strength present throughout Psych Appearance: grossly normal Mental Status: mental status grossly normal Speech and movement: Normal speech and movement present Affect: normal affect Attitude: cooperative Thought process: Normal thought process present Thought content: Normal thought content present Insight: Good insight present (Psych) Judgement: Good judgement present (Psych) Assessment & Plan Assessment & Plan (1) PSEN1-related Alzheimer's disease: Comment: 2023, 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 Will request notes from [facility]. Will also confirm [facility] has results of recent genetic testing showing genetic julianne y-onset AD. And mention pt's 's question, if pt would still need CSF testing in light of positive genetic testing. Continue Memantine 21mg daily. Continue quetiapine 12.5-25 mg q.h.s. Advised to add blue tooth type trackers to important items that pt is prone to moving/misplacing, such as his wallet. ? For headache- Continue B2 and Mag for prevention. May use Advil or Ibuprofen prn for now. ? Follow-up in 6 months or sooner. Coding Level of Care Code Est Pt Level 4 (56444) Diagnoses PSEN1-related Alzheimer's disease G30.0; F02.80 Family history of dementia Z81.8 Headache R51.9
== END 2024-02-28 14:53 | disposition home or self-care (01) ==
PROVIDERS: PCP Nurse Practitioner Family; Visit Provider Nurse Practitioner Family
DX: G30.0 Alzheimer's disease with early onset (principal); F02.80 Dementia in other diseases classified elsewhere, unspecified severity, without behavioral disturbance, psychotic disturbance, mood disturbance, and anxiety; Z81.8 Family history of other mental and behavioral disorders; R51.9 Headache, unspecified
CPT/HCPCS: 99214

== ENCOUNTER → 2024-02-28 13:54 | Outpatient (BNVA) | payer OTHER, SELFPAY | PROVIDERS: PCP Nurse Practitioner Family; Visit Provider Nurse Practitioner Family | DX: G30.0 Alzheimer's disease with early onset (principal); F02.80 Dementia in other diseases classified elsewhere, unspecified severity, without behavioral disturbance, psychotic disturbance, mood disturbance, and anxiety; R51.9 Headache, unspecified; Z81.8 Family history of other mental and behavioral disorders | CPT/HCPCS: 99212 ==

== ENCOUNTER 2024-03-06 12:08 | Outpatient (AMB) | payer OTHER, SELFPAY ==
--- NOTE | 2024-03-06 12:59 | MHC.OFFVIS ---
Intake Visit Reasons: nocturia Intake Note: New Patient presents for initial visit for Nocturia Urology Medications: none Blood Thinner: none PVR: Mall Manager Required: No Accompanied by: Unknown Allergies No Known Allergies Allergy (Verified 03/06/24 13:32) Medication List - Last Reconciled 03/06/24 by JS Blandon- amlodipine 5 mg PO DAILY docusate sodium (Colace) 200 mg (2 x 100 mg) PO BEDTIME hydrocortisone 2.5% (Proctozone-HC) 1 appl ND BID PRN lisinopril 40 mg PO DAILY 90 days magnesium oxide 400 mg PO BEDTIME 30 days memantine 28 mg PO DAILY 30 days methylcellulose (laxative) (Citrucel) 500 mg PO TID polyethylene glycol 3350 (Miralax) 17 grams PO DAILY quetiapine 12.5 - 25 mg (0.5 - 1 x 25 mg) PO BEDTIME 30 days riboflavin (vitamin B2) 400 mg PO DAILY 30 days [seat cushion donut shape As directed] HPI Comments Details: Levon is a pleasantly confused 63-year-old male patient of Dr. Dawn who was accompanied by his at today's office visit. He has a past medical history of forgetfulness and hypertension. He presents to the office today as a new patient for ongoing lower urinary tract symptoms. Patient's provides much of today's history as patient is unsure as to what urinary symptoms he has been experiencing. She reports patient has episodes of nocturia 3-5 times per night and feels he goes frequently throughout the day. When asked he does report episodes of dysuria from time to time. He otherwise denies incontinence, hematuria, dysuria, foul smelling urine, changes to urinary stream, flank pain, fever, and or chills. In office urinalysis results reviewed with the patient today trace leukocytes, 1+ microscopic blood. PVR 0 mL. In review of patient's chart it appears PSAs are as follows: PSAs: 10/23 3.0, 09/23 3.5 We discussed at length potential causes of lower urinary tract symptoms patient is experiencing. Will obtain retroperitoneal ultrasound for further assessment evaluation. Discussed bladder diary as well as timed voiding given patient is extremely forgetful. Discussed possible near future in office cystoscopy and or urodynamics for further assessment evaluation. He otherwise offers no other issues or concerns at this time. [facility] Medical History (Reviewed 03/06/24 @ 13:38 by JS BlandonEN[facility] Forgetfulness Hypertension Surgical History Hx of colonoscopy Family History Mother Dementia Father Colon cancer Social History Housing: House Alcohol intake: never Patient Tobacco Use Status: Former Tobacco user e-Cigarette/Vaping Use: Never Used Second Hand Smoke Exposure: No service: No Current occupational status: unemployed Cognitive needs: No Hearing needs: No Vision needs: No Review of Systems Const All systems reviewed & are unremarkable except as noted in HPI and below Physical Exam Const General: cooperative, healthy appearing, comfortable, no acute distress, well developed, alert and awake Orientation/consciousness: patient oriented x3 Limitations: no limitations HEENT Head: Yes normal to inspection, Yes normocephalic and Yes atraumatic Ears: hearing grossly normal bilaterally Eyes General: appearance normal, both eyes and all related structures Neck Neck: Yes normal visual inspection and Yes trachea midline Chest Chest palpation & inspection: normal inspection of the chest Resp Effort & Inspection: normal respiratory effort and able to speak in complete sentences Cardio Rate: regular rate GI Inspection: Yes normal to inspection General: Yes no CVA tenderness Back/Spine/Pelvis Back: no CVA tenderness Skin General skin exam: no rashes or lesions noted Neuro General: patient oriented x3 Extrem General: Yes normal to inspection Psych Appearance: grossly normal and well kempt Mental Status: mental status grossly normal Speech and movement: Normal speech and movement present and Clear speech present Affect: normal affect Attitude: cooperative Thought process: Normal thought process present Thought content: Normal thought content present Insight: Fair insight present (Psych) Judgement: Fair judgement present (Psych) Office Procedures Post Void Residual Post Residual Void Post Void Residual (PVR): 0 [id number]-[id number] Void Residual by ultrasound Results AMB Urinalysis, Automated UA Leukoctes 15 Darren/uL Last Edit by Jason Cisneros on 03/06/24 13:15 UA Nitrite Last Edit by Jason Cisneros on 03/06/24 13:15 UA Urobilinogen 0.2 mg/dL Last Edit by Jason Cisneros on 03/06/24 13:15 UA Protein 0 mg/dL Last Edit by Jonahyulissa Remaqi on 03/06/24 13:15 UA pH 6.0 Last Edit by Meganana maría Remaqi on 03/06/24 13:15 UA Blood 25 Janak/uL Last Edit by Jason Remaqi on 03/06/24 13:15 UA Specific [place] 1.025 Last Edit by Jonahyulissa Remaqi on 03/06/24 13:15 UA Ketone Negative Last Edit by Meganana maría Remaqi on 03/06/24 13:15 UA Bilirubin 0 mg/dL Last Edit by Jonahyulissa Remaqi on 03/06/24 13:15 UA Glucose 0 mg/dL Last Edit by Jonahyulissa Remaqi on 03/06/24 13:15 Results Reviewed Results Reviewed: Laboratory Last Values Urine pH (Auto) 6.0 03/06/24 13:04 Specific [place] (Auto) 1.025 03/06/24 13:04 Urine Protein (Auto) 0 mg/dL 03/06/24 13:04 Glucose (UA)(Auto) 0 mg/dL 03/06/24 13:04 Urine Ketones (Auto) Negative 03/06/24 13:04 Urine Blood (Auto) 25 Janak/uL 03/06/24 13:04 Urine Bilirubin (Auto) 0 mg/dL 03/06/24 13:04 Urine Urobilinogen (Auto) 0.2 mg/dL 03/06/24 13:04 Leukocyte Esterase (Auto) 15 Darren/uL 03/06/24 13:04 Assessment & Plan Assessment & Plan (1) Frequency of urination: Code(s): R35.0 - Frequency of micturition Category: Medical (2) Nocturia: Code(s): R35.1 - Nocturia Category: Medical (3) Microhematuria: Code(s): R31.29 - Other microscopic hematuria Category: Medical Plan In office urinalysis results reviewed with the patient today; as noted above; will send for urine cytology. Discussed at length potential causes of lower urinary tract symptoms patient is experiencing. Discussed timed voiding. Discussed bladder diary. Discussed bladder triggers/irritants. Discussed importance of limiting fluids 2-3 hours prior to bed to decrease episodes of nocturia. Start Flomax as discussed and prescribed. Discussed possible near future in office cystoscopy and or urodynamics for further assessment evaluation. Follow-up in 1-3 months with imaging to be completed prior; or sooner with any issues, concerns, and or questions. Orders: Orders AMB Urinalysis Automated Today Z13.9 - Encounter for screening, unspecified AMB Post Void Residual by ultrasound Today R35.0 - Frequency of micturition US retroperitoneal comp Today R35.0 - Frequency of micturition, R35.1 - Nocturia Urine Cytology Today R31.29 - Other microscopic hematuria Medications: New tamsulosin 0.4 mg PO BEDTIME 30 caps 2RF 30 days N40.1 - Benign prostatic hyperplasia with lower urinary tract symptoms, R35.1 - Nocturia Patient Instructions: The patient had an opportunity to ask questions regarding the treatment plan. All questions were answered. Physical exam, labs, and imaging were discussed and reviewed in detail. As well as risks, benefits, and discussion of treatment choices. No major barriers to understanding were identified. The patient expressed understanding and agreement with the above treatment plan. The patient was made aware they should contact our office by phone for worsening of their current condition, the appearance of new symptoms, or with any questions or concerns. Compliance is encouraged with any medications and follow up testing that is ordered. It is a privilege to be allowed the opportunity to participate in? your urological care.? Again, if you have any questions or concerns If you have any questions or concerns please do not hesitate to contact me. The office is [phone]. This note is constructed using voice recognition software. While every effort has been made to ensure accuracy crimper assembler errors may have been included. Yours sincerely, DEWAYNE Blandon Coding Level of Care Code New Pt Level 4 (45317) Diagnoses Frequency of urination R35.0 Nocturia R35.1 Microhematuria R31.29 CPT Codes Post Residual Void - PVR CPT Code: 59419-Zeav Void Residual by ultrasound ([id number])
== END 2024-03-06 13:29 | disposition home or self-care (01) ==
PROVIDERS: PCP Internal Medicine; Visit Provider Nurse Practitioner Family
DX: R35.0 Frequency of micturition (principal); R35.1 Nocturia; R31.29 Other microscopic hematuria; Z13.9 Encounter for screening, unspecified
CPT/HCPCS: 99204

== ENCOUNTER 2024-03-06 12:08 | Outpatient (REF) | payer OTHER, SELFPAY ==
[2024-03-06 17:21] LABS: Urine Cytology See Pathology rpt
== END 2024-03-06 12:09 | disposition home or self-care (01) ==
LOC: HO.LNP 12:08
PROVIDERS: PCP Internal Medicine; Visit Provider Nurse Practitioner Family
DX: R31.29 Other microscopic hematuria (principal); Z13.9 Encounter for screening, unspecified
CPT/HCPCS: 51798; 81003; 88112; 99202

== ENCOUNTER 2024-03-09 12:44 | Emergency (ER) | payer OTHER, SELFPAY ==
[2024-03-09 13:10] VITALS: BP 178/104; PULSE 83; RESP 16; TEMP 36; O2SAT 99; BMI 23.5
--- NOTE | 2024-03-09 13:10 | ED_ITS ---
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 Per patient's who helps provide history patient was unable to have the procedure done due to technical difficulties. She states they inserted the needle but were unable to get any cerebrospinal fluid for testing. She states he was at his baseline yesterday, he had a mild headache. Today when he was sitting up and eating lunch he developed worsening posterior headache and posterior neck pain. He stated the pain was severe. She brought him to the ER for further evaluation. Patient states the pain is a pressures and throbbing sensation in the back of his head. It is worse when he sits up and is walking around. It is better when he lays down. Denies any focal weakness, numbness, tingling. Denies any chest pain or shortness of breath. No blurred vision complaint: neck and head pain s/p LP yesterady at [facility] Onset (ago): day(s) Location: head and neck Radiation: neck Severity: severe Quality: aching Pain Consistency: intermittent Relieving factors: other (Supine positioning) Exacerbating factors: movement Associated symptoms: denies other symptoms Treatments prior to arrival: none Related Data Previous Rx's ?Medication ?Instructions ?Recorded docusate sodium 100 mg capsule 200 mg (2 x 100 mg) PO BEDTIME #60 08/08/23 (Colace) caps hydrocortisone 2.5 % topical cream 1 appl OR BID PRN hemorrhoids #30 08/08/23 with perineal applicator grams (Proctozone-HC) methylcellulose (laxative) 500 mg 500 mg PO TID #90 tabs 08/08/23 tablet (Citrucel) polyethylene glycol 3350 17 17 g PO DAILY #510 grams 08/08/23 gram/dose oral powder (Miralax) riboflavin (vitamin B2) 400 mg 400 mg PO DAILY 30 days #30 tabs 11/06/23 tablet magnesium oxide 400 mg (241.3 mg 400 mg PO BEDTIME 30 days #30 tabs 11/14/23 magnesium) tablet memantine 28 mg capsule 28 mg PO DAILY 30 days #30 ea 12/08/23 sprinkle,extended release 24hr quetiapine 25 mg tablet 12.5 - 25 mg (0.5 - 1 x 25 mg) PO 01/01/24 BEDTIME 30 days #30 tabs lisinopril 40 mg tablet 40 mg PO DAILY 90 days #90 tabs 01/22/24 seat cushion donut shape #1 ea 01/22/24 amlodipine 5 mg tablet 5 mg PO DAILY #90 tabs 02/14/24 tamsulosin 0.4 mg capsule 0.4 mg PO BEDTIME 30 days #30 caps 03/06/24 lhjhfxndqc-oomhgilhvlnjm-dmzzjhdi 1 tab PO Q4-6H PRN pain #10 tabs 03/09/24 50 mg-325 mg-40 mg tablet Allergies Allergy/AdvReac Type Severity Reaction Status Date / Time No Known Allergies Allergy Verified 03/09/24 13:20 Review of Systems 2 Review of Systems: Yes all other systems are reviewed and are negative [facility] Past Medical History Medical History Forgetfulness Hypertension Surgical History Hx of colonoscopy Family History Family History Mother Dementia Father Colon cancer Social History Social History Housing: House Alcohol intake: never Patient Tobacco Use Status: Former Tobacco user Smoked in Last 30 Days: No e-Cigarette/Vaping Use: Never Used Second Hand Smoke Exposure: No Use of substances other than those prescribed or required for medical reasons: No Advance Directives: No Advance Directives Information Provided: No service: No Current occupational status: unemployed Cognitive needs: No Hearing needs: No Vision needs: No Physical Exam ED Vital Signs: Vital Signs - 24 hr 03/09/24 13:10 03/09/24 13:42 Temperature 96.8 F Pulse Rate 83 94 Respiratory Rate 16 20 Blood Pressure 178/104 H Pulse Oximetry 99 97 Oxygen Delivery Method Room Air Room Air BMI result Body Mass Index 23.5 Appearance: Alert. Oriented X2. No acute distress. Head: normocephalic, atraumatic. Eyes: Pupils equal, round and reactive to light. ENT: Pharynx normal. No tonsillar swelling or exudate. Neck: Normal inspection. Neck supple. Nontender midline spine. Normal range of motion. No nuchal rigidity. CVS: Normal heart rate and rhythm. Pulses normal. Respiratory: No respiratory distress. Breath sounds normal. Abdomen: Soft and nontender. +BS x4 Skin: Skin warm and dry. Normal skin color. Normal skin turgor. No rashes. Extremities: No lower extremity edema. No joint swelling. Neuro/psych: Oriented X 2. No motor deficit. No sensory deficit. CN II-XII intact. Confused which is his baseline, ambulatory Course Course Course Narrative: RME performed by Cee Oliver PA-C. Patient is a 63 year old assigned male at presenting to the emergency department with neck pain. Patient states that at [facility] yesterday he had a lumbar puncture for a possible dementia diagnosis. Patient states that he has been having a headache since he had the procedure. Detailed physical exam and review of systems are deferred to the custodial engineer. Labs ordered. Patient placed back in the waiting room pending room availability and results. Medications Administered Discontinued Medications Generic Name Dose Route Start Last Admin Trade Name Freq PRN Reason Stop Dose Admin Acetaminophen/Butalbital/Caffeine 2 tab 03/09/24 13:55 03/09/24 14:22 Butalb/Acetamin/Caff 50/325/40 Tablet PO 03/09/24 13:56 2 tab ONCE ONE Administration Sodium Chloride 1,000 mls @ 999 mls/hr 03/09/24 13:30 03/09/24 16:04 Ns IVCONT 03/09/24 14:30 Infused .Q1H1M EMMA Infusion Sodium Chloride 1,000 mls @ 999 mls/hr 03/09/24 15:30 03/09/24 17:36 Ns IVCONT 03/09/24 16:30 Infused .Q1H1M EMMA Infusion Medical Decision Making Medical Decision Making MDM Narrative: 63-year-old male with history of Alzheimer's disease who had a recent attempt at lumbar puncture study that was unsuccessful over at [facility] in [place] presents to the ER for evaluation of a headache. He states the headache is worse when he sits up and is moving around. It subsides and resolves when lying flat. No fever or chills. Lab workup in the ER is unremarkable. He was treated with 2 L of IV fluids and Fioricet. He had complete resolution of the headache when lying flat. Only mild headache when sitting up or moving around. Case discussed with the attending physician. No emergent need for blood patch today. Patient and family advised on strict supine status at home, increase oral hydration and caffeine. Patient will return home with his . Return precautions were discussed as well as possible blood patch in the next 24-48 hours if needed, if symptoms worsen. Stable for discharge home Differential Diagnosis Differential Diagnoses: The differential diagnosis associated with the presentation includes Post lumbar puncture headache, migraine, dehydration, low clinical suspicion for meningitis or encephalitis Admission/Observation Consideration of admission/observation: Escalation of care including admission/observation considered Lab Data MDM Lab Attestation statement: I reviewed the patient's lab results. Leukopenia which is chronic 03/09/24 13:33 03/09/24 13:33 Labs: Lab Results 03/09/24 Range/Units 13:33 WBC 4.4 L (4.8-10.8) X10*3/uL RBC 5.70 (4.60-5.80) X10*6/uL Hgb 16.0 (14.0-18.0) g/dl Hct 47.1 (42.0-52.0) % MCV 82.6 (80.0-98.0) fL MCH 28.1 (27.0-33.0) pg MCHC 34.0 (31.0-36.0) g/dl RDW 15.1 (11.0-16.0) % Plt Count 259 (160-400) X10*3/uL MPV 9.0 L (9.4-12.4) fL Immature Gran % (Auto) 0.2 (0.0-0.4) % Neut % (Auto) 74.0 H (45-73) % Lymph % (Auto) 15.3 L (20-40) % [place] % (Auto) 9.4 (2-11) % Eos % (Auto) 0.2 (0-4) % Baso % (Auto) 0.9 (0-2) % Lymph # (Auto) 0.7 L (1.2-4.9) X10*3/uL [place] # (Auto) 0.4 (0.1-1.2) X10*3/uL Eos # (Auto) 0.0 (0.0-0.4) X10*3/uL Baso # (Auto) 0.0 (0.0-0.2) X10*3/uL Abs Immat Gran (auto) 0.01 (0.00-0.03) X10*3/uL Absolute Neuts (auto) 3.2 (2.0-8.3) x10*3/uL Absolute Nucleated RBC 0.000 (0.0-0.012) X10*3/uL Nucleated RBC % (auto) 0.0 (0.0-0.2) /100WBC Sodium 140 (135-145) mmol/L Potassium 3.5 (3.3-5.1) mmol/L Chloride 103 (96-108) mmol/L Carbon Dioxide 27 (22-29) mmol/L Anion Gap 14 (12-20) BUN 12 (9-16) mg/dL Creatinine 1.07 (0.5-1.4) mg/dL Estim Creat Clear Calc 69.2 Estimated GFR > 60 Random Glucose 145 H (60-115) mg/dL Calcium 9.4 (8.4-10.2) mg/dL Magnesium 1.8 (1.6-2.6) mg/dL Total Bilirubin 0.7 (0.0-1.0) mg/dL AST 14 (5-37) U/L ALT 14 (0-40) U/L Alkaline Phosphatase 78 (39-117) U/L Total Protein 7.4 (6.5-8.0) g/dL Albumin 4.2 (3.5-5.0) g/dL Independent Interpretation I performed an independent interpretation of an: EKG Interpretation: EKG with normal sinus rhythm, low voltage QRS, ventricular rate 70 beats per minute, no ST segment elevations or depressions. Independent Historian Clinical information obtained from an independent historian. History obtained from or confirmed by: Spouse External Record Review External record reviewed: Office record, Outpatient record, Prior outpatient labs and Prior outpatient radiology Tests considered The following testing was considered but not selected: CT scan of the head Prescription Management I considered prescription management with: Pain Medication and Other (Caffeine, IV fluids) Chronic Conditions Patient?s care impacted by: Other (Alzheimer's dementia) Critical Care Time Critical Care Time Critical Care Time: Yes Total Critical Care Time: 33 Attestation: I have personally provided critical care time exclusive of time spent on separately billable procedures. Time includes review of lab data, radiology results, discussion with consultants, and monitoring for potential decompensation. Intervention performed as documented. Discharge Plan Discharge Clinical Impression: Post lumbar puncture headache Patient Disposition: Home, Self-Care Instructions: Epidural Blood Patch (DC), Lumbar Puncture (ED) Additional Instructions: Recommend following up with Dr. Betancur for further evaluation and treatment. Recommend lying flat at all times unless needing to go to the bathroom. You will need to lay flat for as much time as possible for the next 48-72 hours. This will help resolve the headache. Take the prescribed medication as needed for headache. If you develop new or worsening symptoms call 911 or come back to the ER for further evaluation. Prescriptions: New qongisruih-gmbwqkwoxbhhs-hzbw 50-325-40 mg tablet 1 tab PO Q4-6H PRN (Reason: pain) Qty: 10 0RF No Action riboflavin (vitamin B2) 400 mg tablet 400 mg PO DAILY 30 Days Qty: 30 6RF magnesium oxide 400 mg (241.3 mg magnesium) tablet 400 mg PO BEDTIME 30 Days Qty: 30 6RF Rx Instructions: may hold for loose stools memantine 28 mg capsule,sprinkle,ER 24hr 28 mg PO DAILY 30 Days Qty: 30 6RF amlodipine 5 mg tablet 5 mg PO DAILY Qty: 90 1RF lisinopril 40 mg tablet 40 mg PO DAILY 90 Days Qty: 90 1RF (DME) seat cushion donut shape See Rx Instructions .Route .MEDSUPPLY Qty: 1 0RF Rx Instructions: As directed quetiapine 25 mg tablet 12.5 - 25 mg PO BEDTIME 30 Days Qty: 30 3RF Citrucel 500 mg tablet 500 mg PO TID Qty: 90 5RF hydrocortisone [Proctozone-HC] 2.5 % cream with perineal applicator 1 appl OR BID PRN (Reason: hemorrhoids) Qty: 30 3RF Rx Instructions: apply OR BID prn polyethylene glycol 3350 [Miralax] 17 gram/dose powder 17 g PO DAILY Qty: 510 6RF docusate sodium [Colace] 100 mg capsule 200 mg PO BEDTIME Qty: 60 5RF tamsulosin 0.4 mg capsule 0.4 mg PO BEDTIME 30 Days Qty: 30 2RF Referrals: Maribeth Talamantes MD [Primary Care Provider] - Interventions: ED Discharge Assessment Last Done: 03/09/24 17:35 Discharge Date/Time: 03/09/24 17:36 Print Language: Cameroonian
--- NOTE | 2024-03-09 13:12 | ECG_ITS ---
Test Reason : NECK PAIN Blood Pressure : / mmHG Vent. Rate : 070 BPM Atrial Rate : 070 BPM P-R Int : 160 ms QRS Dur : 102 ms QT Int : 372 ms P-R-T Axes : 063 -22 044 degrees QTc Int : 401 ms Normal sinus rhythm Low voltage QRS Borderline ECG When compared with ECG of 15-AUG-2022 13:11, T wave amplitude has decreased in Anterior leads Referred By: Cee Oliver Electronically Signed By:AARON DO
[2024-03-09] MEDS: 0.9 % Sodium Chloride 1,000 ML 999 ML IVCONT ×2 (13:32→16:04)
[2024-03-09 13:36] LABS: MANUAL DIFF FLAG NO
[2024-03-09 13:39] LABS: Basophils Percent Auto 0.9 % (0-2); Eosinophils Percent Auto 0.2 % (0-4); Hematocrit 47.1 % (42.0-52.0); Imm Gran Abs Auto 0.01 X10*3/uL (0.00-0.03); Imm Gran Pct Auto 0.2 % (0.0-0.4); Lymphocytes Absolute Auto 0.7 X10*3/uL (1.2-4.9); Lymphocytes Percent Auto 15.3 % (20-40); Mean Corpuscular Hemoglobin 28.1 pg (27.0-33.0); Mean Corpuscular Volume 82.6 fL (80.0-98.0); Monocytes Absolute Auto 0.4 X10*3/uL (0.1-1.2); Monocytes Percent Auto 9.4 % (2-11); Neutrophils Absolute Auto 3.2 x10*3/uL (2.0-8.3); Platelet Count 259 X10*3/uL (160-400); Red Cell Distribution Width 15.1 % (11.0-16.0); White Blood Count 4.4 X10*3/uL (4.8-10.8)
[2024-03-09 13:42] VITALS: PULSE 94; RESP 20; O2SAT 97
[2024-03-09 14:22] LABS: Alanine Aminotransferase 14 U/L (0-40); Albumin Level 4.2 g/dL (3.5-5.0); Alkaline Phosphatase 78 U/L (39-117); Anion Gap 14 (12-20); Aspartate Amino Transferase 14 U/L (5-37); Bilirubin Total 0.7 mg/dL (0.0-1.0); Blood Urea Nitrogen 12 mg/dL (9-16); Calcium 9.4 mg/dL (8.4-10.2); Carbon Dioxide 27 mmol/L (22-29); Chloride 103 mmol/L (96-108); Creatinine Clr Calc Pharmacy 69.2; Estimated Glomerular Filt Rate > 60; Glucose Random 145 mg/dL (60-115); Magnesium 1.8 mg/dL (1.6-2.6); Potassium 3.5 mmol/L (3.3-5.1); Sodium 140 mmol/L (135-145); Total Protein 7.4 g/dL (6.5-8.0)
[2024-03-09] MEDS: Butalb/Acetamin/Caff 50/325/40 TABLET 2 TAB PO (14:22)
[2024-03-09 17:13] VITALS: BP 149/93; PULSE 57; RESP 18; TEMP 36.9; O2SAT 95
[2024-03-09 17:35] VITALS: BP 167/89; PULSE 62; RESP 16; TEMP 36.7; O2SAT 100
== END 2024-03-09 17:36 | disposition home or self-care (01) ==
PROVIDERS: Physician Assistant Medical; Emergency Provider Emergency Medicine Emergency Medical Services; PCP Internal Medicine
DX: G97.1 Other reaction to spinal and lumbar puncture (principal); Y84.4 Aspiration of fluid as the cause of abnormal reaction of the patient, or of later complication, without mention of misadventure at the time of the procedure; M54.2 Cervicalgia; Y92.009 Unspecified place in unspecified non-institutional (private) residence as the place of occurrence of the external cause; I10 Essential (primary) hypertension; Z87.891 Personal history of nicotine dependence
CPT/HCPCS: 36415; 80053; 83735; 85025; 93005; 96360; 96361; 99284; 99285

== ENCOUNTER 2024-03-12 14:58 | Observation (INO) | payer OTHER, SELFPAY ==
--- NOTE | ~2024-03-12 | MR_ITS ---
EXAMINATION: MR BRAIN WITHOUT AND WITH CONTRAST MR LUMBAR SPINE WITHOUT AND WITH CONTRAST CLINICAL INFORMATION: Worsening headaches with prior lumbar puncture. Concern for CSF leak. COMPARISON: Head CT from 03/12/2024. TECHNIQUE: Multiplanar, multisequence imaging of the brain and lumbar spine was performed before and after the intravenous administration of 6 mL of Gadavist. Limited study with motion artifacts. FINDINGS: Brain: No diffusion abnormalities are identified to suggest an acute infarct. The ventricles are normal in size. No mass effect or midline shift is seen. Mild scattered white matter signal changes are present which may be due to chronic microangiopathy. No extra-axial fluid collections are seen. The brainstem and cerebellum are normal. There is no abnormal parenchymal enhancement. There is smooth diffuse pachymeningeal enhancement along the cerebral convexities and in the posterior fossa. The gradient refocused acquisition demonstrates no pathologic magnetic susceptibility artifact to indicate underlying acute or chronic blood products. The craniovertebral junction, marrow signal, and midline structures are normal. The major intracranial flow voids at the level of the [place] of [place] are preserved. The dural venous sinus flow voids are maintained. The mastoid air cells are well aerated. There is a small retention cyst in the right maxillary sinus. Lumbar spine: Vertebral Bodies And Paraspinal Structures: Mild rightward curvature of the lower lumbar spine evident. There is moderate to severe disc space narrowing with chronic fatty marrow degenerative endplate changes at the L4-L5 level. Slight reversal of the normal lower lumbar lordotic curvature visible. No compression fractures. No soft tissue fluid collections are seen. Conus Medullaris And Cauda Equine: The distal cord, conus tip, and cauda equina nerve roots are normal. No pathologic intradural enhancement is identified. No abnormal epidural fluid collection is visible. Spinal Levels: L1-L2: No disc pathology. No central canal stenosis or foraminal narrowing. L2-L3: Very mild disc bulge. No central canal stenosis or foraminal narrowing. L3-L4: Mild diffuse disc bulge present with mild facet arthropathy. No central canal stenosis. Mild foraminal narrowing. L4-L5: Moderate to severe loss of disc height with endplate spurring and a broad-based disc bulge with hypertrophic facet arthropathy. No central canal stenosis. [id number] bilateral foraminal narrowing. L5-S1: Shallow posterior disc bulge and annular fissure with moderate facet arthropathy mildly impressing upon the left S1 nerve root in the narrowed left lateral recess. No central canal stenosis. Moderate foraminal narrowing. MR/MR lumbar spine wo/w con IMPRESSION: Brain: Diffuse smooth pachymeningeal enhancement along the cerebral convexities and in the posterior fossa, most indicative for intracranial hypotension in the setting of a prior lumbar puncture. Otherwise, no acute process. Lumbar spine: No epidural fluid collection or pseudomeningocele identified. Multilevel lumbar spondylosis, most significant at the L4-L5 level with hypertrophic facet arthropathy and [id number] foraminal narrowing. No focal disc protrusion or central canal stenosis. Posterior disc bulge and moderate facet arthropathy impress upon the left S1 nerve root at the L5-S1 level with moderate foraminal narrowing. Electronically signed by: Law Frank MD 03/12/2024 09:20 PM EDT
--- NOTE | ~2024-03-12 | CT_ITS ---
EXAMINATION: CT HEAD WITHOUT CONTRAST CLINICAL INFORMATION: Headache, status post LP. COMPARISON: Head CT dated 11/04/2023. TECHNIQUE: Contiguous axial imaging was performed from the skullbase to vertex without intravenous administration of contrast. This CT examination was performed using dose optimization techniques as appropriate, variously including the following: *Automated exposure control *Adjustment of mA and/or kV according to patient size (this includes techniques or standardized protocols for targeted exams where dose is matched to indication/reason for exam; i.e. extremities or head) *Use of iterative reconstruction technique DLP: 575 mGy-cm. FINDINGS: There is no evidence of acute intracranial hemorrhage or territorial infarction. No abnormal mass effect or midline shift is seen. [place] to white matter differentiation is well preserved. No extra-axial fluid collections are identified. No cerebellar tonsillar ectopia is visible. Mild generalized brain parenchymal volume loss again evident with commensurate mild ex vacuo prominence of the ventricles. There is no abnormal attenuation within the brain parenchyma. The osseous structures and soft tissues are normal. The mastoid air cells and visualized portions of the paranasal sinuses are well aerated. CT/CT head/brain wo IV con IMPRESSION: No acute intracranial pathology. Electronically signed by: Law Frank MD 03/12/2024 05:32 PM EDT
--- NOTE | ~2024-03-12 | MR_ITS ---
EXAMINATION: MR BRAIN WITHOUT AND WITH CONTRAST MR LUMBAR SPINE WITHOUT AND WITH CONTRAST CLINICAL INFORMATION: Worsening headaches with prior lumbar puncture. Concern for CSF leak. COMPARISON: Head CT from 03/12/2024. TECHNIQUE: Multiplanar, multisequence imaging of the brain and lumbar spine was performed before and after the intravenous administration of 6 mL of Gadavist. Limited study with motion artifacts. FINDINGS: Brain: No diffusion abnormalities are identified to suggest an acute infarct. The ventricles are normal in size. No mass effect or midline shift is seen. Mild scattered white matter signal changes are present which may be due to chronic microangiopathy. No extra-axial fluid collections are seen. The brainstem and cerebellum are normal. There is no abnormal parenchymal enhancement. There is smooth diffuse pachymeningeal enhancement along the cerebral convexities and in the posterior fossa. The gradient refocused acquisition demonstrates no pathologic magnetic susceptibility artifact to indicate underlying acute or chronic blood products. The craniovertebral junction, marrow signal, and midline structures are normal. The major intracranial flow voids at the level of the [place] are preserved. The dural venous sinus flow voids are maintained. The mastoid air cells are well aerated. There is a small retention cyst in the right maxillary sinus. Lumbar spine: Vertebral Bodies And Paraspinal Structures: Mild rightward curvature of the lower lumbar spine evident. There is moderate to severe disc space narrowing with chronic fatty marrow degenerative endplate changes at the L4-L5 level. Slight reversal of the normal lower lumbar lordotic curvature visible. No compression fractures. No soft tissue fluid collections are seen. Conus Medullaris And Cauda Equine: The distal cord, conus tip, and cauda equina nerve roots are normal. No pathologic intradural enhancement is identified. No abnormal epidural fluid collection is visible. Spinal Levels: L1-L2: No disc pathology. No central canal stenosis or foraminal narrowing. L2-L3: Very mild disc bulge. No central canal stenosis or foraminal narrowing. L3-L4: Mild diffuse disc bulge present with mild facet arthropathy. No central canal stenosis. Mild foraminal narrowing. L4-L5: Moderate to severe loss of disc height with endplate spurring and a broad-based disc bulge with hypertrophic facet arthropathy. No central canal stenosis. [id number] bilateral foraminal narrowing. L5-S1: Shallow posterior disc bulge and annular fissure with moderate facet arthropathy mildly impressing upon the left S1 nerve root in the narrowed left lateral recess. No central canal stenosis. Moderate foraminal narrowing. MR/MR head/brain wo/w con IMPRESSION: Brain: Diffuse smooth pachymeningeal enhancement along the cerebral convexities and in the posterior fossa, most indicative for intracranial hypotension in the setting of a prior lumbar puncture. Otherwise, no acute process. Lumbar spine: No epidural fluid collection or pseudomeningocele identified. Multilevel lumbar spondylosis, most significant at the L4-L5 level with hypertrophic facet arthropathy and [id number] foraminal narrowing. No focal disc protrusion or central canal stenosis. Posterior disc bulge and moderate facet arthropathy impress upon the left S1 nerve root at the L5-S1 level with moderate foraminal narrowing. Electronically signed by: Law Frank MD 03/12/2024 09:20 PM EDT
[2024-03-12 15:10] VITALS: BP 143/92; PULSE 80; RESP 16; TEMP 36.7; O2SAT 98; BMI 22.2
--- NOTE | 2024-03-12 15:10 | PC.NURSE ---
a&ox4. vss and up to date aside from being hypertensive. nsr on the patient monitor. pt presents to the ED s/p lumbar puncture on 03/08. pt reports 10/10 TEE, lower neck pain, weakness and associated nausea x the day after the procedure. pt reports being prescribed medication w/ little to no relief. pt presents to the ED today d/t increase in pain. denies change in vision/dizziness/lightheadedness. pt reports sensitivity to light. 18gIV placed in the left AC - labs obtained/sent to lab. pt seen by ED provider/aware of plan of care moving forward. no sob/wob noted. respirations even/unlabored. pt waiting to go to CT at this time. bedside for support. lights dimmed to promote comfort. plan of care ongoing. call ibrahim placed within reach.
--- NOTE | 2024-03-12 15:12 | ED_ITS ---
HPI - General Adult General Chief complaint: Headache Stated complaint: severe head after procedure 03/08 Time Seen by Provider: 03/12/24 15:17 History of Present Illness ED Provider: Jl MURRELL narrative: 61-year-old male with past medical history of Alzheimer's presents for headache. Patient recently had an attempted lumbar puncture at an outside hospital Monday of last week UTI rapidly progressive dementia. Monday he developed a headache and presented here where he was treated with fluids and Fioricet with improvement in symptoms. He presents today again for headache that has been constant despite taking Fioricet at home. Patient has also had nausea however denies vomiting. There have been no fevers or chills. Related Data Home Medications ?Medication ?Instructions ?Recorded ?Confirmed polyethylene glycol 3350 17 17 g PO DAILY PRN Constipation 03/12/24 03/12/24 gram/dose oral powder (Miralax) quetiapine 25 mg tablet 25 mg PO BEDTIME 03/12/24 03/12/24 Previous Rx's ?Medication ?Instructions ?Recorded docusate sodium 100 mg capsule 200 mg (2 x 100 mg) PO BEDTIME #60 08/08/23 (Colace) caps hydrocortisone 2.5 % topical cream 1 appl MI BID PRN hemorrhoids #30 08/08/23 with perineal applicator grams (Proctozone-HC) riboflavin (vitamin B2) 400 mg 400 mg PO DAILY 30 days #30 tabs 11/06/23 tablet magnesium oxide 400 mg (241.3 mg 400 mg PO BEDTIME 30 days #30 tabs 11/14/23 magnesium) tablet memantine 28 mg capsule 28 mg PO DAILY 30 days #30 ea 12/08/23 sprinkle,extended release 24hr lisinopril 40 mg tablet 40 mg PO DAILY 90 days #90 tabs 01/22/24 seat cushion donut shape #1 ea 01/22/24 amlodipine 5 mg tablet 5 mg PO DAILY #90 tabs 02/14/24 tamsulosin 0.4 mg capsule 0.4 mg PO BEDTIME 30 days #30 caps 03/06/24 fblbyqimcm-dswhbbtithwxn-racjyogw 1 tab PO Q4-6H PRN pain #10 tabs 03/09/24 50 mg-325 mg-40 mg tablet Allergies Allergy/AdvReac Type Severity Reaction Status Date / Time No Known Allergies Allergy Verified 03/12/24 15:12 Review of Systems 2 Review of Systems: Patient endorses headache and nausea Patient denies fevers, chills, abdominal pain, neck pain, vomiting, urinary symptoms Yes all other systems are reviewed and are negative [facility] Past Medical History Medical History Forgetfulness Hypertension Surgical History Hx of colonoscopy Family History Family History Mother Dementia Father Colon cancer Social History Social History Housing: House Alcohol intake: never Patient Tobacco Use Status: Former Tobacco user Smoked in Last 30 Days: No e-Cigarette/Vaping Use: Never Used Second Hand Smoke Exposure: No Use of substances other than those prescribed or required for medical reasons: No Advance Directives: No Advance Directives Information Provided: Yes service: No Current occupational status: unemployed Cognitive needs: No Hearing needs: No Vision needs: No Physical Exam ED Vital Signs: Vital Signs - 24 hr 03/12/24 15:10 03/12/24 15:40 03/12/24 17:24 Temperature 98.0 F 97.6 F 97.8 F Pulse Rate 80 73 62 Respiratory Rate 16 14 16 Blood Pressure 143/92 H 154/105 H 147/92 H Pulse Oximetry 98 99 98 Oxygen Delivery Method Room Air Room Air Room Air 03/12/24 19:05 03/12/24 21:43 Temperature 98.5 F 98.1 F Pulse Rate 59 66 Respiratory Rate 14 18 Blood Pressure 134/70 156/93 H Pulse Oximetry 98 97 Oxygen Delivery Method Room Air Room Air BMI result Body Mass Index 22.2 Head is normocephalic atraumatic No focal neurologic deficits appreciated Abdomen is soft nontender nondistended Lungs clear to auscultation bilaterally Normal S1-S2 regular rate and rhythm Course Course Course Narrative: This is an RME done by CRISTY Tidwell: Additional HPI, ROS, PE not included below will be deferred to primary provider. 63yo M with recent history of LP on Monday03/08/24 coming in with severe TEE, neck pain, generalized weakness. Denies fevers, chills, N/V Appearance: Alert.? Oriented X3.? No acute cardiopulmonary distress distress.? Head: Normocephalic, atraumatic Neck: Normal inspection. CVS: Pulses normal.? Respiratory: No respiratory distress.? Skin: ? Normal skin color. Neuro: Oriented X 3. Photophobia Reevaluation(s) Reevaluation #1: I assumed care from my colleague at 21:00 to check MRI and this with the patient. MRI shows no evidence of epidural fluid accumulation, the plan was to admit the patient an obtain anesthesia consult for possible blood patching. Case discussed with Dr. Engle accepted the patient. MRI brain and spine revealed:Brain: Diffuse smooth pachymeningeal enhancement along the cerebral convexities and in the posterior fossa, most indicative for intracranial hypotension in the setting of a prior lumbar puncture. Otherwise, no acute process. Lumbar spine: No epidural fluid collection or pseudomeningocele identified. Multilevel lumbar spondylosis, most significant at the L4-L5 level with hypertrophic facet arthropathy and [id number] foraminal narrowing. No focal disc protrusion or central canal stenosis. Time: 22:07 Medications Administered Discontinued Medications Generic Name Dose Route Start Last Admin Trade Name Freq PRN Reason Stop Dose Admin Acetaminophen/Butalbital/Caffeine 1 tab 03/12/24 20:25 03/12/24 21:34 Butalb/Acetamin/Caff 50/325/40 Tablet PO 03/12/24 20:26 1 tab ONCE ONE Administration Gadobutrol 7.5 ml 03/12/24 21:00 03/12/24 21:00 Gadobutrol 7.5 Ml Vial IVPUSH 03/12/24 21:01 6 ml ONCE ONE Administration Sodium Chloride 1,000 mls @ 999 mls/hr 03/12/24 17:00 03/12/24 19:03 Ns IV 03/12/24 18:00 Infused .Q1H1M EMMA Infusion Morphine Sulfate 4 mg 03/12/24 15:47 03/12/24 15:54 Morphine Sulfate 4 Mg/Ml Cartridge IVPUSH 03/12/24 15:48 4 mg ONCE ONE Administration Protocol Medical Decision Making Medical Decision Making MDM Narrative: This is a 63-year-old male who had a recent lumbar puncture presents for headache. My concern is post-dural headache. I am also considering mass occupying lesion, tension headache, migraine. Labs and imaging studies were ordered in triage I ordered analgesics I received a call from neurologist at [facility] who recommended a blood patch after obtaining MRI of brain and spine I ordered MRI for the patient and received a call from neuroradiologist who recommended just obtaining an MRI brain and lumbar spine Reviewed patient's lab work and his CBC is stable and BMP is within normal limits I spoke with hospitalist regarding admission as I am not sure when patient will obtain his MRIs nor when he will be evaluated by anesthesia Patient admitted to medicine Differential Diagnosis Differential Diagnoses: The differential diagnosis associated with the presentation includes Post dural headache, migraine, tension headache, brain mass Consult Healthcare Provider Management of the patient was discussed with: Hospitalist Accepted patient for admission Lab Data 03/12/24 15:29 03/12/24 15:29 Labs: Lab Results 03/12/24 03/12/24 03/12/24 Range/Units 15:29 15:33 15:55 WBC 4.3 L (4.8-10.8) X10*3/uL RBC 5.60 (4.60-5.80) X10*6/uL Hgb 15.9 (14.0-18.0) g/dl Hct 46.4 (42.0-52.0) % MCV 82.9 (80.0-98.0) fL MCH 28.4 (27.0-33.0) pg MCHC 34.3 (31.0-36.0) g/dl RDW 14.9 (11.0-16.0) % Plt Count 265 (160-400) X10*3/uL MPV 9.4 (9.4-12.4) fL Immature Gran % (Auto) 0.2 (0.0-0.4) % Neut % (Auto) 63.1 (45-73) % Lymph % (Auto) 23.6 (20-40) % [place] % (Auto) 11.4 H (2-11) % Eos % (Auto) 0.5 (0-4) % Baso % (Auto) 1.2 (0-2) % Lymph # (Auto) 1.0 L (1.2-4.9) X10*3/uL [place] # (Auto) 0.5 (0.1-1.2) X10*3/uL Eos # (Auto) 0.0 (0.0-0.4) X10*3/uL Baso # (Auto) 0.1 (0.0-0.2) X10*3/uL Abs Immat Gran (auto) 0.01 (0.00-0.03) X10*3/uL Absolute Neuts (auto) 2.7 (2.0-8.3) x10*3/uL Absolute Nucleated RBC 0.000 (0.0-0.012) X10*3/uL Nucleated RBC % (auto) 0.0 (0.0-0.2) /100WBC ESR 2 (0-15) MM/HR PT (11.1-13.3) SEC INR (0.9-1.1) Sodium 141 (135-145) mmol/L Potassium 3.4 (3.3-5.1) mmol/L Chloride 106 (96-108) mmol/L Carbon Dioxide 26 (22-29) mmol/L Anion Gap 12 (12-20) BUN 16 (9-16) mg/dL Creatinine 1.09 (0.5-1.4) mg/dL Estim Creat Clear Calc 67.8 Estimated GFR > 60 Random Glucose 139 H (60-115) mg/dL Calcium 9.2 (8.4-10.2) mg/dL Magnesium 2.1 (1.6-2.6) mg/dL Total Bilirubin 0.6 (0.0-1.0) mg/dL AST 14 (5-37) U/L ALT 12 (0-40) U/L Alkaline Phosphatase 69 (39-117) U/L C-Reactive Protein 0.18 (< or = 0.50) mg/dL Total Protein 7.2 (6.5-8.0) g/dL Albumin 4.0 (3.5-5.0) g/dL Urine Color Dark Yellow Urine Appearance Clear Urine pH 6.0 (5.0-9.0) Ur Specific [place] 1.010 (1.005-1.025) Urine Protein Negative (Neg-Trace) mg/dL Urine Glucose (UA) Negative (Negative) mg/dL Urine Ketones Negative (Negative) mg/dL Urine Blood Negative (Negative) Urine Nitrite Negative (Negative) Ur Leukocyte Esterase Negative (Negative) Blood Type O Positive Antibody Screen NEGATIVE 09/10/24 Range/Units 16:29 WBC (4.8-10.8) X10*3/uL RBC (4.60-5.80) X10*6/uL Hgb (14.0-18.0) g/dl Hct (42.0-52.0) % MCV (80.0-98.0) fL MCH (27.0-33.0) pg MCHC (31.0-36.0) g/dl RDW (11.0-16.0) % Plt Count (160-400) X10*3/uL MPV (9.4-12.4) fL Immature Gran % (Auto) (0.0-0.4) % Neut % (Auto) (45-73) % Lymph % (Auto) (20-40) % [place] % (Auto) (2-11) % Eos % (Auto) (0-4) % Baso % (Auto) (0-2) % Lymph # (Auto) (1.2-4.9) X10*3/uL [place] # (Auto) (0.1-1.2) X10*3/uL Eos # (Auto) (0.0-0.4) X10*3/uL Baso # (Auto) (0.0-0.2) X10*3/uL Abs Immat Gran (auto) (0.00-0.03) X10*3/uL Absolute Neuts (auto) (2.0-8.3) x10*3/uL Absolute Nucleated RBC (0.0-0.012) X10*3/uL Nucleated RBC % (auto) (0.0-0.2) /100WBC ESR (0-15) MM/HR PT 13.0 (11.1-13.3) SEC INR 1.1 (0.9-1.1) Sodium (135-145) mmol/L Potassium (3.3-5.1) mmol/L Chloride (96-108) mmol/L Carbon Dioxide (22-29) mmol/L Anion Gap (12-20) BUN (9-16) mg/dL Creatinine (0.5-1.4) mg/dL Estim Creat Clear Calc Estimated GFR Random Glucose (60-115) mg/dL Calcium (8.4-10.2) mg/dL Magnesium (1.6-2.6) mg/dL Total Bilirubin (0.0-1.0) mg/dL AST (5-37) U/L ALT (0-40) U/L Alkaline Phosphatase (39-117) U/L C-Reactive Protein (< or = 0.50) mg/dL Total Protein (6.5-8.0) g/dL Albumin (3.5-5.0) g/dL Urine Color Urine Appearance Urine pH (5.0-9.0) Ur Specific [place] (1.005-1.025) Urine Protein (Neg-Trace) mg/dL Urine Glucose (UA) (Negative) mg/dL Urine Ketones (Negative) mg/dL Urine Blood (Negative) Urine Nitrite (Negative) Ur Leukocyte Esterase (Negative) Blood Type Antibody Screen Discharge Plan Discharge Clinical Impression: Post-dural puncture headache Patient Disposition: Admitted As Inpatient Print Language: Cook Islander
[2024-03-12 15:35] LABS: MANUAL DIFF FLAG NO
[2024-03-12 15:37] LABS: Basophils Absolute Auto 0.1 X10*3/uL (0.0-0.2); Basophils Percent Auto 1.2 % (0-2); Eosinophils Percent Auto 0.5 % (0-4); Hematocrit 46.4 % (42.0-52.0); Hemoglobin 15.9 g/dl (14.0-18.0); Imm Gran Abs Auto 0.01 X10*3/uL (0.00-0.03); Imm Gran Pct Auto 0.2 % (0.0-0.4); Lymphocytes Percent Auto 23.6 % (20-40); Mean Corpuscular HGB Conc 34.3 g/dl (31.0-36.0); Mean Corpuscular Hemoglobin 28.4 pg (27.0-33.0); Mean Corpuscular Volume 82.9 fL (80.0-98.0); Mean Platelet Volume 9.4 fL (9.4-12.4); Monocytes Absolute Auto 0.5 X10*3/uL (0.1-1.2); Monocytes Percent Auto 11.4 % (2-11); Neutrophils Absolute Auto 2.7 x10*3/uL (2.0-8.3); Neutrophils Percent Auto 63.1 % (45-73); Platelet Count 265 X10*3/uL (160-400); Red Cell Distribution Width 14.9 % (11.0-16.0); White Blood Count 4.3 X10*3/uL (4.8-10.8)
[2024-03-12 15:40] VITALS: BP 154/105; PULSE 73; RESP 14; TEMP 36.4; O2SAT 99
[2024-03-12] MEDS: Morphine Sulfate 4 MG/ML CARTRIDGE IVPUSH (15:54)
[2024-03-12 15:55] LABS: Alanine Aminotransferase 12 U/L (0-40); Alkaline Phosphatase 69 U/L (39-117); Anion Gap 12 (12-20); Aspartate Amino Transferase 14 U/L (5-37); Bilirubin Total 0.6 mg/dL (0.0-1.0); Blood Urea Nitrogen 16 mg/dL (9-16); C Reactive Protein 0.18 mg/dL (< or = 0.50); Calcium 9.2 mg/dL (8.4-10.2); Carbon Dioxide 26 mmol/L (22-29); Chloride 106 mmol/L (96-108); Creatinine Clr Calc Pharmacy 67.8; Estimated Glomerular Filt Rate > 60; Glucose Random 139 mg/dL (60-115); Magnesium 2.1 mg/dL (1.6-2.6); Potassium 3.4 mmol/L (3.3-5.1); Sodium 141 mmol/L (135-145); Total Protein 7.2 g/dL (6.5-8.0)
--- NOTE | 2024-03-12 16:00 | PC.NURSE ---
pt medicated per provider order. effectiveness pending. urine obtained/sent to lab. pt to CT at this time. plan of care ongoing.
[2024-03-12 16:04] LABS: Appearance Urine Clear; Color Urine Dark Yellow; Glucose Urine UA Negative (Negative); Leukocyte Esterase Urine Negative (Negative); Nitrite Urine Negative (Negative); Urine Blood Negative (Negative); Urine Ketones Negative (Negative); Urine Protein Negative (Neg-Trace)
[2024-03-12 16:26] LABS: Erythrocyte Sedimentation Rate 2 MM/HR (0-15)
[2024-03-12 16:45] LABS: INTERNATIONAL NORM RATIO 1.1 (0.9-1.1)
[2024-03-12 17:24] VITALS: BP 147/92; PULSE 62; RESP 16; TEMP 36.6; O2SAT 98
[2024-03-12] MEDS: 0.9 % Sodium Chloride 1,000 ML 999 ML IV (17:24)
--- NOTE | 2024-03-12 17:24 | PC.NURSE ---
vss and up to date aside from remaining slightly hypertensive, nsr on the rn cardiac. IVF administered per provider order. pt verbalizing slight decrease in pain s/p medication administration. resting comfortably w/ bedside w/ lights dimmed. CT results remain pending. plan of care ongoing.
--- NOTE | 2024-03-12 19:00 | PC.NURSE ---
report received from Lianna JUÁREZ, assume care of pt at this time
[2024-03-12 19:05] VITALS: BP 134/70; PULSE 59; RESP 14; TEMP 36.9; O2SAT 98
--- NOTE | 2024-03-12 19:55 | PC.NURSE ---
completed MRI checksheet
--- NOTE | 2024-03-12 20:25 | P.HPHOSP_ITS ---
History of Present Illness Date of Service: 03/12/24 Chief Complaint: Headache This is a 63-year-old male with pertinent history of Alzheimer's dementia, hypertension, mood disorder, BPH who presents to the emergency department for evaluation of headache. Patient underwent lumbar puncture at [facility] 4 days (03/08) prior to presentation. The lumbar puncture was diagnostic due to rapidly progressing dementia. Patient states that he developed a headache soon after. Patient was seen in the ER on 03/09 and given Fioricet and IV fluids with improvement in symptoms. Patient presents today due to headache which is constant and interfering with activities of daily living. It is worse with sitting or standing and relieved with lying flat. No fever, chills, chest discomfort, palpitations, shortness of breath, abdominal pain, changes in urinary or bowel habits. In the emergency department, neurologist at [facility] was contacted recommended MRI brain with lumbar spine. Also anesthesiology was consulted for epidural blood patch Review of Systems 2 Constitutional: Constitutional: Reports no additional constitutional complaints and Reports headache(s) ENT: Reports headache(s) Cardiovascular: Cardiovascular: Reports no additional cardiovascular complaints Respiratory: Respiratory: Reports no additional respiratory complaints Gastrointestinal: Gastrointestinal: Reports no additional gastrointestinal complaints Genitourinary: Genitourinary: Reports no additional male genitourinary complaints Neurologic: Reports headache(s) [facility] Medical History Forgetfulness Hypertension Family History Mother Dementia Father Colon cancer Surgical History Hx of colonoscopy Social History Housing: House Alcohol intake: never Patient Tobacco Use Status: Former Tobacco user Smoked in Last 30 Days: No e-Cigarette/Vaping Use: Never Used Second Hand Smoke Exposure: No Use of substances other than those prescribed or required for medical reasons: No Advance Directives: No Advance Directives Information Provided: Yes service: No Current occupational status: unemployed Cognitive needs: No Hearing needs: No Vision needs: No Meds Allergies Allergy/AdvReac Type Severity Reaction Status Date / Time No Known Allergies Allergy Verified 03/12/24 15:12 Active Medications: Current Medications Acetaminophen/Butalbital/Caffeine (Butalb/Acetamin/Caff 50/325/40 Tablet) 1 tab PO ONCE ONE Stop: 03/12/24 20:26 Prochlorperazine Edisylate (Prochlorperazine Edisylate 10 Mg/2 Ml Vial) 5 mg IV Q4H PRN PRN Reason: Headache Home Medications ?Medication ?Instructions ?Recorded ?Confirmed ?Last Taken ?Type polyethylene glycol 3350 17 17 g PO DAILY PRN Constipation 03/12/24 03/12/24 Unknown History gram/dose oral powder (Miralax) quetiapine 25 mg tablet 25 mg PO BEDTIME 03/12/24 03/12/24 03/11/24 History Physical Exam 2 Vital Signs and Narrative: Vital Signs: Last Vital Signs Temp 98.5 F 03/12/24 19:05 Pulse 59 03/12/24 19:05 Resp 14 03/12/24 19:05 BP 134/70 03/12/24 19:05 Pulse Ox 98 03/12/24 19:05 O2 Del Method Room Air 03/12/24 19:05 BMI result Body Mass Index 22.2 Middle-aged male lying in bed in no distress Neck supple, no JVD Regular rate and rhythm, S1-S2 heard Regular breath sounds bilaterally, no wheezing or crackles appreciated Abdomen soft nontender, no guarding, no rigidity Patient is awake, alert and oriented to self, place, time and person ; no focal motor deficit Psych: Normal mood No pedal edema Results Labs 03/12/24 15:29 03/12/24 15:29 Labs: Laboratory Results - last 24 hr 03/12/24 03/12/24 03/12/24 15:29 15:33 15:55 MCV 82.9 MCH 28.4 MCHC 34.3 RDW 14.9 Plt Count 265 MPV 9.4 Immature Gran % (Auto) 0.2 Neut % (Auto) 63.1 Lymph % (Auto) 23.6 [place] % (Auto) 11.4 H Eos % (Auto) 0.5 Baso % (Auto) 1.2 Lymph # (Auto) 1.0 L [place] # (Auto) 0.5 Eos # (Auto) 0.0 Baso # (Auto) 0.1 Abs Immat Gran (auto) 0.01 Absolute Neuts (auto) 2.7 Absolute Nucleated RBC 0.000 Nucleated RBC % (auto) 0.0 ESR 2 PT INR Anion Gap 12 Estim Creat Clear Calc 67.8 Estimated GFR > 60 Random Glucose 139 H Calcium 9.2 Magnesium 2.1 Total Bilirubin 0.6 AST 14 ALT 12 Alkaline Phosphatase 69 C-Reactive Protein 0.18 Total Protein 7.2 Albumin 4.0 Urine Color Dark Yellow Urine Appearance Clear Urine pH 6.0 Ur Specific [place] 1.010 Urine Protein Negative Urine Glucose (UA) Negative Urine Ketones Negative Urine Blood Negative Urine Nitrite Negative Ur Leukocyte Esterase Negative Blood Type O Positive Antibody Screen NEGATIVE 03/12/24 16:29 MCV MCH MCHC RDW Plt Count MPV Immature Gran % (Auto) Neut % (Auto) Lymph % (Auto) [place] % (Auto) Eos % (Auto) Baso % (Auto) Lymph # (Auto) [place] # (Auto) Eos # (Auto) Baso # (Auto) Abs Immat Gran (auto) Absolute Neuts (auto) Absolute Nucleated RBC Nucleated RBC % (auto) ESR PT 13.0 INR 1.1 Anion Gap Estim Creat Clear Calc Estimated GFR Random Glucose Calcium Magnesium Total Bilirubin AST ALT Alkaline Phosphatase C-Reactive Protein Total Protein Albumin Urine Color Urine Appearance Urine pH Ur Specific [place] Urine Protein Urine Glucose (UA) Urine Ketones Urine Blood Urine Nitrite Ur Leukocyte Esterase Blood Type Antibody Screen Imaging Radiologist's Impressions: Impressions Head CT 03/12/24 15:10 IMPRESSION: No acute intracranial pathology. Electronically signed by: Law Frank MD 03/12/2024 05:32 PM EDT Assessment and Plan (1) Post-dural puncture headache: Status: Acute Plan This is a 63-year-old male with pertinent history of Alzheimer's dementia, hypertension, mood disorder, BPH who presents to the emergency department for evaluation of headache. #. Post dural puncture headache, moderate to severe: Will admit patient for debilitating headache. Anesthesiology consulted for epidural blood patch. MRI brain and lumbar spine reviewed. Continue fiorcet #. Alzheimer's dementia with mood disorder: Continue memantine and Seroquel #. BPH: On Flomax #. Hypertension: On amlodipine and lisinopril Med rec pending DVT prophylaxis: Mechanical Full code Quality Stroke Does the patient have a stroke diagnosis?: No VTE Prior VTE?: No VTE Risk Level:: Medical - moderate - high VTE Device Contraindication: N/A - Device Ordered VTE Drug Contraindication: Treatment Not Indicated
[2024-03-12] MEDS: gadobutroL 7.5 ML VIAL IVPUSH (21:00)
[2024-03-12] MEDS: Butalb/Acetamin/Caff 50/325/40 TABLET 1 TAB PO (21:34)
[2024-03-12 21:43] VITALS: BP 156/93; PULSE 66; RESP 18; TEMP 36.7; O2SAT 97
--- NOTE | 2024-03-12 21:45 | PHA.MEDREC ---
Addendum entered by Charli Coe [facility] 03/12/24 21:57: Med rec reviewed Original Note: Pharmacy Consult ? Medication Reconciliation Pharmacy has completed the medication reconciliation. Spoke to patients at bedside to confirm med list. knew all patients medication. states Quetiapine 25 mg at bedtime.
[2024-03-13 02:01] VITALS: BP 170/101; PULSE 68; RESP 17; TEMP 36.9; O2SAT 98
[2024-03-13] MEDS: Melatonin 3 MG TABLET 6 MG PO (02:20)
--- NOTE | 2024-03-13 03:56 | PC.NURSE ---
resting quietly on stretcher, eyes closed, resp with ease, no s/s of acute distress, spouse at beside, awaiting admit bed
[2024-03-13 05:11] LABS: MANUAL DIFF FLAG NO
[2024-03-13 05:13] LABS: Basophils Absolute Auto 0.1 X10*3/uL (0.0-0.2); Eosinophils Percent Auto 0.2 % (0-4); Hemoglobin 15.7 g/dl (14.0-18.0); Imm Gran Abs Auto 0.01 X10*3/uL (0.00-0.03); Imm Gran Pct Auto 0.2 % (0.0-0.4); Lymphocytes Absolute Auto 1.1 X10*3/uL (1.2-4.9); Lymphocytes Percent Auto 23.1 % (20-40); Mean Corpuscular HGB Conc 32.7 g/dl (31.0-36.0); Mean Corpuscular Hemoglobin 27.6 pg (27.0-33.0); Mean Corpuscular Volume 84.5 fL (80.0-98.0); Mean Platelet Volume 9.2 fL (9.4-12.4); Monocytes Absolute Auto 0.5 X10*3/uL (0.1-1.2); Monocytes Percent Auto 10.3 % (2-11); Neutrophils Absolute Auto 3.2 x10*3/uL (2.0-8.3); Neutrophils Percent Auto 65.2 % (45-73); Platelet Count 254 X10*3/uL (160-400); Red Blood Count 5.68 X10*6/uL (4.60-5.80); Red Cell Distribution Width 15.2 % (11.0-16.0); White Blood Count 4.9 X10*3/uL (4.8-10.8)
[2024-03-13 05:28] LABS: Anion Gap 14 (12-20); Blood Urea Nitrogen 10 mg/dL (9-16); Calcium 9.1 mg/dL (8.4-10.2); Carbon Dioxide 26 mmol/L (22-29); Chloride 109 mmol/L (96-108); Estimated Glomerular Filt Rate > 60; Glucose Random 112 mg/dL (60-115); Potassium 3.6 mmol/L (3.3-5.1); Sodium 145 mmol/L (135-145)
[2024-03-13 05:56] VITALS: BP 165/103; PULSE 66; RESP 18; TEMP 37; O2SAT 98
[2024-03-13] MEDS: Calcium Carbonate 750 MG TAB.CHEW PO (06:21)
--- NOTE | 2024-03-13 06:27 | PC.NURSE ---
informed dr jin of pt bp, and his home meds for bp not ordered
[2024-03-13] MEDS: amLODIPine Besylate 5 MG TABLET PO (06:41)
[2024-03-13] MEDS: lisinopriL 40 MG TABLET PO (06:41)
--- NOTE | 2024-03-13 06:57 | PC.NURSE ---
report given to Radha JUÁREZ
[2024-03-13] MEDS: 0.9 % Sodium Chloride Flush 3 ML SYRINGE IVFLUSH ×2 (07:55→22:02)
[2024-03-13 10:21] VITALS: BP 162/112; PULSE 78; RESP 20; TEMP 36.8; O2SAT 97
--- NOTE | 2024-03-13 11:20 | MHC.CM.PN ---
PT Lives with has 24 hr foster care thru [employer] [facility] has own ride home
--- NOTE | 2024-03-13 12:21 | HO.PM.IMPN ---
Subjective Subjective Date of Service: 03/13/24 Interval History: c/o TEE 8/10 in intensity, worse with sitting/standing no N/V Review of Systems Review of Systems: Yes all other systems are reviewed and are negative Physical Exam Vital Signs: Vital Signs: Last Vital Signs Temp 98.3 F 03/13/24 10:21 Pulse 78 03/13/24 10:21 Resp 20 03/13/24 10:21 BP 162/112 H 03/13/24 10:21 Pulse Ox 97 03/13/24 10:21 O2 Del Method Room Air 03/13/24 10:21 BMI result Body Mass Index 22.2 Gen: in no acute distress HEENT: sclera anicteric, moist mucus membranes Neck: supple Lungs: clear to auscultation bilaterally Heart: regular rate and rhythm, no murmurs Abd: soft, non-tender, non-distended Ext: no edema Skin: warm/well-perfused Neuro: alert and oriented x3, no focal findings Psych: appropriate affect Objective Data Active Medications Acetaminophen (Acetaminophen 325 Mg Tablet) 650 mg PO Q6H PRN PRN Reason: Pain, Mild (Pain Scale 1-3), fever or headache Acetaminophen/Butalbital/Caffeine (Butalb/Acetamin/Caff 50/325/40 Tablet) 1 tab PO Q4H PRN PRN Reason: Headache Amlodipine Besylate (Amlodipine Besylate 5 Mg Tablet) 5 mg PO DAILY [facility]; Protocol Calcium Carbonate (Calcium Carbonate 750 Mg Tab.Chew) 750 mg PO Q4H PRN PRN Reason: Heartburn Last Admin: 03/13/24 06:21 Dose: 750 mg Documented By: ANIL Docusate Sodium (Docusate Sodium 100 Mg Capsule) 200 mg PO BEDTIME [facility] Hydrocortisone (Hydrocortisone 2.5 % Rectal Cr 30 Gm Tube) 1 appl [place] BID PRN PRN Reason: hemorrhoids Lisinopril (Lisinopril 40 Mg Tablet) 40 mg PO DAILY [facility]MA; Protocol Magnesium Hydroxide (Milk Of Magnesia 30 Ml Oral.Susp) 30 ml PO DAILY PRN PRN Reason: Constipation Magnesium Oxide (Magnesium Oxide 400 Mg Tablet) 400 mg PO BEDTIME [facility] Melatonin (Melatonin 3 Mg Tablet) 6 mg PO BEDTIME PRN PRN Reason: Insomnia Last Admin: 03/13/24 02:20 Dose: 6 mg Documented By: ANIL Morphine Sulfate (Morphine Sulfate 4 Mg/Ml Cartridge) 4 mg IVPUSH Q4H PRN; Protocol PRN Reason: Pain, Severe (Pain Scale 7-10) Non-Formulary Medication (Memantine) 28 mg PO DAILY [facility] Ondansetron HCl (Ondansetron Hcl 4 Mg/2 Ml Vial) 4 mg IVPUSH Q8H PRN PRN Reason: Nausea and Vomiting Polyethylene Glycol (Polyethylene Glycol 3350 17 Gm Powd.Pack) 17 gm PO DAILY PRN PRN Reason: Constipation Prochlorperazine Edisylate (Prochlorperazine Edisylate 10 Mg/2 Ml Vial) 5 mg IV Q4H PRN PRN Reason: Headache Quetiapine Fumarate (Quetiapine Fumarate 25 Mg Tablet) 25 mg PO BEDTIME [facility] Sodium Chloride (0.9 % Sodium Chloride Flush 3 Ml Syringe) 3 ml IVFLUSH QSHIFT [facility] Last Admin: 03/13/24 07:55 Dose: 3 ml Documented By: RACHAEL Tamsulosin HCl (Tamsulosin Hcl 0.4 Mg Capsule) 0.4 mg PO BEDTIME [facility] Labs 03/13/24 04:48 03/13/24 04:48 Labs: Laboratory Results - last 24 hr 03/12/24 03/12/24 03/12/24 15:29 15:33 15:55 MCV 82.9 MCH 28.4 MCHC 34.3 RDW 14.9 Plt Count 265 MPV 9.4 Immature Gran % (Auto) 0.2 Neut % (Auto) 63.1 Lymph % (Auto) 23.6 [place] % (Auto) 11.4 H Eos % (Auto) 0.5 Baso % (Auto) 1.2 Lymph # (Auto) 1.0 L [place] # (Auto) 0.5 Eos # (Auto) 0.0 Baso # (Auto) 0.1 Abs Immat Gran (auto) 0.01 Absolute Neuts (auto) 2.7 Absolute Nucleated RBC 0.000 Nucleated RBC % (auto) 0.0 ESR 2 PT INR Anion Gap 12 Estim Creat Clear Calc 67.8 Estimated GFR > 60 Random Glucose 139 H Calcium 9.2 Magnesium 2.1 Total Bilirubin 0.6 AST 14 ALT 12 Alkaline Phosphatase 69 C-Reactive Protein 0.18 Total Protein 7.2 Albumin 4.0 Urine Color Dark Yellow Urine Appearance Clear Urine pH 6.0 Ur Specific [place] 1.010 Urine Protein Negative Urine Glucose (UA) Negative Urine Ketones Negative Urine Blood Negative Urine Nitrite Negative Ur Leukocyte Esterase Negative Blood Type O Positive Antibody Screen NEGATIVE 03/12/24 03/13/24 16:29 04:48 MCV 84.5 MCH 27.6 MCHC 32.7 RDW 15.2 Plt Count 254 MPV 9.2 L Immature Gran % (Auto) 0.2 Neut % (Auto) 65.2 Lymph % (Auto) 23.1 [place] % (Auto) 10.3 Eos % (Auto) 0.2 Baso % (Auto) 1.0 Lymph # (Auto) 1.1 L [place] # (Auto) 0.5 Eos # (Auto) 0.0 Baso # (Auto) 0.1 Abs Immat Gran (auto) 0.01 Absolute Neuts (auto) 3.2 Absolute Nucleated RBC 0.000 Nucleated RBC % (auto) 0.0 ESR PT 13.0 INR 1.1 Anion Gap 14 Estim Creat Clear Calc 77.0 Estimated GFR > 60 Random Glucose 112 Calcium 9.1 Magnesium Total Bilirubin AST ALT Alkaline Phosphatase C-Reactive Protein Total Protein Albumin Urine Color Urine Appearance Urine pH Ur Specific [place] Urine Protein Urine Glucose (UA) Urine Ketones Urine Blood Urine Nitrite Ur Leukocyte Esterase Blood Type Antibody Screen Impressions Head CT 03/12/24 15:10 IMPRESSION: No acute intracranial pathology. Electronically signed by: Law Frank MD 03/12/2024 05:32 PM EDT RP Brain MRI 03/12/24 20:28 IMPRESSION: Brain: Diffuse smooth pachymeningeal enhancement along the cerebral convexities and in the posterior fossa, most indicative for intracranial hypotension in the setting of a prior lumbar puncture. Otherwise, no acute process. Lumbar spine: No epidural fluid collection or pseudomeningocele identified. Multilevel lumbar spondylosis, most significant at the L4-L5 level with hypertrophic facet arthropathy and [id number] foraminal narrowing. No focal disc protrusion or central canal stenosis. Posterior disc bulge and moderate facet arthropathy impress upon the left S1 nerve root at the L5-S1 level with moderate foraminal narrowing. Electronically signed by: Law Frank MD 03/12/2024 09:20 PM EDT RP Lumbar Spine MRI 03/12/24 20:42 IMPRESSION: Brain: Diffuse smooth pachymeningeal enhancement along the cerebral convexities and in the posterior fossa, most indicative for intracranial hypotension in the setting of a prior lumbar puncture. Otherwise, no acute process. Lumbar spine: No epidural fluid collection or pseudomeningocele identified. Multilevel lumbar spondylosis, most significant at the L4-L5 level with hypertrophic facet arthropathy and [id number] foraminal narrowing. No focal disc protrusion or central canal stenosis. Posterior disc bulge and moderate facet arthropathy impress upon the left S1 nerve root at the L5-S1 level with moderate foraminal narrowing. Electronically signed by: Law Frank MD 03/12/2024 09:20 PM EDT RP Assessment and Plan (1) Post-dural puncture headache: Status: Acute Plan d2 63yo M with Alzheimer's dementia, HTN, mood disorder, BPH presenting with persistent TEE after [place] [facility] [place], constant despite ED visit 03/09 during which he was given IV fluids and Fiorcet post-LP TEE - Neuro + Anesthesia consults- ?epidural blood patch. continue Fiorcet, IV hydration HTN - continue lisinopril + amlodipine Alzheimer deneita + mood disorder - continue quetiapine + memantine BPH - continue tamsulosin VTE ppx - SCDs, no heparin given possible epidural patch In my clinical judgment, the patient requires continued inpatient hospitalization for the following reasons: pain control, specialty consultation Total time managing care of this patient today: 35 minutes. Quality Stroke Does the patient have a stroke diagnosis?: No VTE Prior VTE?: No VTE Risk Level:: Medical - moderate - high VTE Device Contraindication: N/A - Device Ordered VTE Drug Contraindication: Treatment Not Indicated
--- NOTE | 2024-03-13 14:36 | PM.ANESCN ---
History of Present Illness Consult details Consult date: 03/13/24 Requesting physician: Eyad Elaine Narrative: We were asked to place an epidural blood patch in Mr. Joaquin Nuñez who presents with classic post-dural puncture TEE. The patient is a 63-year-old male with pertinent history of Alzheimer's dementia, hypertension, mood disorder, BPH who presented to the emergency department yesterday afternoon for evaluation of headache. The patient had underwent lumbar puncture [place] [facility] [place] for w/u of rapidly progressing dementia. The patient developed a headache soon after. The patient was seen in the ER on 03/09 and given Fioricet and IV fluids with improvement in symptoms. The patient presented yesterday due to headache which was constant and interfering with activities of daily living. It was worse with sitting or standing and relieved with lying flat. He denied fever, chills, chest discomfort, palpitations, shortness of breath, abdominal pain, changes in urinary or bowel habits. In the emergency department, the neurologist at [facility] [place] was contacted and recommended MRI brain with lumbar spine, followed by epidural blood patch if negative. MRI last night was read as follows: Brain: Diffuse smooth pachymeningeal enhancement along the cerebral convexities and in the posterior fossa, most indicative for intracranial hypotension in the setting of a prior lumbar puncture. Otherwise, no acute process. Lumbar spine: No epidural fluid collection or pseudomeningocele identified. Multilevel lumbar spondylosis, most significant at the L4-L5 level with hypertrophic facet arthropathy and [id number] foraminal narrowing. No focal disc protrusion or central canal stenosis. I talked to the patient and his this afternoon. He describes a posterior occipital headache/neckache that is postural. Otherwise appears very healthy, if not somewhat thin. Appears about his stated age. Vital signs are stable w mild HTN. Breathing easy w Sat 97% on room air. No gross neuro deficits. Mental status is c/w Alzheimer's dementia. Platelet count and coags are normal. IMPRESSION: 1. Classic post-dural puncture TEE. No contraindication to epidural blood patch. I described the procedure to the patient and his , along with the likelihood of success and the potential complications (infection, worse TEE). They wish to proceed. The signed consent. 2. Alzheimer's dementia [facility] Past Medical History Medical History Forgetfulness Hypertension Family History Family History Mother Dementia Father Colon cancer Surgical History Surgical History Hx of colonoscopy Social History Social History Housing: House Alcohol intake: never Patient Tobacco Use Status: Former Tobacco user Smoked in Last 30 Days: No e-Cigarette/Vaping Use: Never Used Second Hand Smoke Exposure: No Use of substances other than those prescribed or required for medical reasons: No Advance Directives: No Advance Directives Information Provided: Yes Nutrition Risks: No Nutritional Risk service: No Current occupational status: unemployed Cognitive needs: No Hearing needs: No Vision needs: No Meds Allergies Allergy/AdvReac Type Severity Reaction Status Date / Time No Known Allergies Allergy Verified 03/12/24 15:12 Active Medications: Current Medications Acetaminophen (Acetaminophen 325 Mg Tablet) 650 mg PO Q6H PRN PRN Reason: Pain, Mild (Pain Scale 1-3), fever or headache Acetaminophen/Butalbital/Caffeine (Butalb/Acetamin/Caff 50/325/40 Tablet) 1 tab PO Q4H PRN PRN Reason: Headache Amlodipine Besylate (Amlodipine Besylate 5 Mg Tablet) 5 mg PO DAILY [facility]; Protocol Calcium Carbonate (Calcium Carbonate 750 Mg Tab.Chew) 750 mg PO Q4H PRN PRN Reason: Heartburn Last Admin: 03/13/24 06:21 Dose: 750 mg Docusate Sodium (Docusate Sodium 100 Mg Capsule) 200 mg PO BEDTIME [facility] Hydrocortisone (Hydrocortisone 2.5 % Rectal Cr 30 Gm Tube) 1 appl [place] BID PRN PRN Reason: hemorrhoids Lisinopril (Lisinopril 40 Mg Tablet) 40 mg PO DAILY [facility]; Protocol Magnesium Hydroxide (Milk Of Magnesia 30 Ml Oral.Susp) 30 ml PO DAILY PRN PRN Reason: Constipation Magnesium Oxide (Magnesium Oxide 400 Mg Tablet) 400 mg PO BEDTIME [facility] Melatonin (Melatonin 3 Mg Tablet) 6 mg PO BEDTIME PRN PRN Reason: Insomnia Last Admin: 03/13/24 02:20 Dose: 6 mg Morphine Sulfate (Morphine Sulfate 4 Mg/Ml Cartridge) 4 mg IVPUSH Q4H PRN; Protocol PRN Reason: Pain, Severe (Pain Scale 7-10) Non-Formulary Medication (Memantine) 28 mg PO DAILY [facility] Ondansetron HCl (Ondansetron Hcl 4 Mg/2 Ml Vial) 4 mg IVPUSH Q8H PRN PRN Reason: Nausea and Vomiting Polyethylene Glycol (Polyethylene Glycol 3350 17 Gm Powd.Pack) 17 gm PO DAILY PRN PRN Reason: Constipation Prochlorperazine Edisylate (Prochlorperazine Edisylate 10 Mg/2 Ml Vial) 5 mg IV Q4H PRN PRN Reason: Headache Quetiapine Fumarate (Quetiapine Fumarate 25 Mg Tablet) 25 mg PO BEDTIME [facility] Sodium Chloride (0.9 % Sodium Chloride Flush 3 Ml Syringe) 3 ml IVFLUSH QSHIFT [facility] Last Admin: 03/13/24 07:55 Dose: 3 ml Tamsulosin HCl (Tamsulosin Hcl 0.4 Mg Capsule) 0.4 mg PO BEDTIME [facility] Home Medications ?Medication ?Instructions ?Recorded ?Confirmed ?Last Taken ?Type polyethylene glycol 3350 17 17 g PO DAILY PRN Constipation 03/12/24 03/12/24 Unknown History gram/dose oral powder (Miralax) quetiapine 25 mg tablet 25 mg PO BEDTIME 03/12/24 03/12/24 03/11/24 History Physical Exam Vital Signs: Vital Signs: Last Vital Signs Temp 98.3 F 03/13/24 10:21 Pulse 78 03/13/24 10:21 Resp 20 03/13/24 10:21 BP 162/112 H 03/13/24 10:21 Pulse Ox 97 03/13/24 10:21 O2 Del Method Room Air 03/13/24 10:21 BMI result Body Mass Index 22.2 Results Labs 03/13/24 04:48 03/13/24 04:48 Labs: Abnormal lab results 03/12/24 03/13/24 Range/Units 15:29 04:48 WBC 4.3 L (4.8-10.8) X10*3/uL MPV 9.2 L (9.4-12.4) fL [place] % (Auto) 11.4 H (2-11) % Lymph # (Auto) 1.0 L 1.1 L (1.2-4.9) X10*3/uL Chloride 109 H (96-108) mmol/L Random Glucose 139 H (60-115) mg/dL Short CBC 03/12/24 03/13/24 Range/Units 15:29 04:48 WBC 4.3 L 4.9 (4.8-10.8) X10*3/uL Hgb 15.9 15.7 (14.0-18.0) g/dl Hct 46.4 48.0 (42.0-52.0) % Plt Count 265 254 (160-400) X10*3/uL BMP 03/12/24 03/13/24 15:29 04:48 Sodium 141 145 Potassium 3.4 3.6 Chloride 106 109 H Carbon Dioxide 26 26 BUN 16 10 Creatinine 1.09 0.96 Calcium 9.2 9.1 Liver Function 03/12/24 Range/Units 15:29 Total Bilirubin 0.6 (0.0-1.0) mg/dL AST 14 (5-37) U/L ALT 12 (0-40) U/L Alkaline Phosphatase 69 (39-117) U/L Albumin 4.0 (3.5-5.0) g/dL Urine 03/12/24 Range/Units 15:55 Urine Color Dark Yellow Urine Appearance Clear Urine pH 6.0 (5.0-9.0) Ur Specific [place] 1.010 (1.005-1.025) Urine Protein Negative (Neg-Trace) mg/dL Urine Glucose (UA) Negative (Negative) mg/dL All other labs normal. Procedures Date of Service Date of Service: 03/13/24
[2024-03-13] MEDS: Morphine Sulfate 4 MG/ML CARTRIDGE IVPUSH (15:43)
--- NOTE | 2024-03-13 15:46 | PC.NURSE ---
patient stated he was having neck pain 03/12. patient medicated per AUG with prn morphine.
[2024-03-13 17:24] VITALS: BP 182/104; PULSE 74; RESP 16; TEMP 36.9; O2SAT 97
[2024-03-13] MEDS: Butalb/Acetamin/Caff 50/325/40 TABLET 1 TAB PO (17:33)
--- NOTE | 2024-03-13 17:35 | PM.EVENT ---
Event Note Date of Service: 03/13/24 Event Note: The 63 yo male pt had a spinal tap on 03.08 for diagnosing Alzheimer disease per pt and his . He developed headache shortly after and still persists. the pain is localized to the lower occipital area and the trapezius muscle. His pain is continuous, no change at all with changing postion, sitting or standing. Neurological examination is normal, no nausea, no visual disturbance, MRI shows no epidural fluid collection. I explained to the pt and his in details, that his headache is not typical for postdural puncture TEE, I would not perform an epidural blood patch, because it is unlikely it would help, if leakage of CSF is unlikely. Pt and his understood and accepted it. I also recommended, that if pt continues to have severe pain, our Pain Service may evaluate him, occipital nerve block may be considered. Time Spent With Patient Time: Total time managing care of this patient today _15___ minutes.
[2024-03-13 19:26] VITALS: BP 132/99; PULSE 71; RESP 17; TEMP 37.2; O2SAT 97
--- NOTE | 2024-03-13 19:27 | PC.NURSE ---
this rn assumed care of pt, pt resting in stretcher, no acute distress noted. pt at bedside. dinner tray set up for pt.
--- NOTE | 2024-03-13 20:24 | PC.NURSE ---
ems at bedside to transport pt home.
[2024-03-13] MEDS: Magnesium Oxide 400 MG TABLET PO (20:42)
[2024-03-13] MEDS: QUEtiapine Fumarate 25 MG TABLET PO (20:42)
[2024-03-13] MEDS: Tamsulosin HCL 0.4 MG CAPSULE PO (20:42)
[2024-03-13] MEDS: Docusate Sodium 100 MG CAPSULE 200 MG PO (20:42)
--- NOTE | 2024-03-13 20:47 | PC.NURSE ---
pt medicated per mar, tolerated well with water. at this time, pt needed some direction to put medication in mouth.
[2024-03-13 21:44] VITALS: BMI 22.6
[2024-03-13 22:15] VITALS: BP 168/88; PULSE 81; RESP 16; TEMP 36.5; O2SAT 97
[2024-03-14 02:47] VITALS: BP 132/83; PULSE 60; RESP 16; TEMP 36; O2SAT 98
[2024-03-14 08:00] VITALS: BP 123/83; PULSE 93; RESP 17; TEMP 36.2; O2SAT 98
[2024-03-14] MEDS: amLODIPine Besylate 5 MG TABLET PO (08:42)
[2024-03-14] MEDS: Butalb/Acetamin/Caff 50/325/40 TABLET 1 TAB PO (08:42)
[2024-03-14] MEDS: 0.9 % Sodium Chloride Flush 3 ML SYRINGE IVFLUSH (08:42)
[2024-03-14] MEDS: lisinopriL 40 MG TABLET PO (08:42)
[2024-03-14] MEDS: polyethylene glycoL 3350 17 GM POWD.PACK PO (10:09)
--- NOTE | 2024-03-14 10:49 | PM.DS ---
DS: Providers Provider Date of Service: 03/14/24 Date of admission: 03/12/24 22:11 Date of discharge: 03/14/24 Primary care physician: Maribeth Barros MD Consults: 03/12/24 20:21 Consult to Anesthesiology Routine Consulting Provider: Yann Parikh Reason for consultation: post dural headache; pt might benefit from blood patch DS: Diagnosis Discharge Diagnosis (1) Post-dural puncture headache: Status: Acute (2) Headache: Status: Acute DS: Summary Hospital Course Hospital Course: From the history and physical by the admitting hospitalist, Marc Phelps, 03/12/24: This is a 63-year-old male with pertinent history of Alzheimer's dementia, hypertension, mood disorder, BPH who presents to the emergency department for evaluation of headache. Patient underwent lumbar puncture at [facility] 4 days (03/08) prior to presentation. The lumbar puncture was diagnostic due to rapidly progressing dementia. Patient states that he developed a headache soon after. Patient was seen in the ER on 03/09 and given Fioricet and IV fluids with improvement in symptoms. Patient presents today due to headache which is constant and interfering with activities of daily living. It is worse with sitting or standing and relieved with lying flat. No fever, chills, chest discomfort, palpitations, shortness of breath, abdominal pain, changes in urinary or bowel habits. In the emergency department, neurologist at [facility] was contacted recommended MRI brain with lumbar spine. Also anesthesiology was consulted for epidural blood patch 63yo M with Alzheimer's dementia, HTN, mood disorder, BPH presenting with persistent TEE after LP at [facility] 03/08, constant despite ED visit 03/09 during which he was given IV fluids and Fiorcet. He was admitted to the medical-surgical unit and treated with 2 doses of Fioricet. No epidural fluid collection on MRI of the L-spine. MRI of the brain showed intracranial hypotension in the setting of a prior lumbar puncture. Neurological examination without focal deficits. Anesthesiology was consulted. Given that his pain was continuous and with no change at all with changing position, sitting or standing, his headache was not thought to be typical for postdual puncture. His headache actually improved and he was discharged with instructions to use acetaminophen for mild-moderate pain and Fioricet for severe pain. Time Attestation Discharge Coordination Time (in mins): 35 Quality: Safe Use of Opioids Does Pt have an Active Cancer Diagnosis on the Problem List?: No Quality: Stroke Does the patient have a stroke diagnosis?: No Physical Exam Vital Signs: Vital Signs: Last Vital Signs Temp 97.2 F 03/14/24 08:00 Pulse 93 03/14/24 08:00 Resp 17 03/14/24 08:00 BP 123/83 03/14/24 08:00 Pulse Ox 98 03/14/24 08:00 O2 Del Method Room Air 03/14/24 08:00 BMI result Body Mass Index 22.6 Gen: in no acute distress HEENT: sclera anicteric, moist mucus membranes Neck: supple Lungs: clear to auscultation bilaterally Heart: regular rate and rhythm, no murmurs Abd: soft, non-tender, non-distended Ext: no edema Skin: warm/well-perfused Neuro: alert and oriented x3, no focal findings Psych: appropriate affect DS: Data Data Completed and Pending Completed studies during hospitalization [Text1]: Laboratory Results WBC 4.9 X10*3/uL (4.8-10.8) 03/13/24 04:48 RBC 5.68 X10*6/uL (4.60-5.80) 03/13/24 04:48 Hgb 15.7 g/dl (14.0-18.0) 03/13/24 04:48 Hct 48.0 % (42.0-52.0) 03/13/24 04:48 MCV 84.5 fL (80.0-98.0) 03/13/24 04:48 MCH 27.6 pg (27.0-33.0) 03/13/24 04:48 MCHC 32.7 g/dl (31.0-36.0) 03/13/24 04:48 RDW 15.2 % (11.0-16.0) 03/13/24 04:48 Plt Count 254 X10*3/uL (160-400) 03/13/24 04:48 MPV 9.2 fL (9.4-12.4) L 03/13/24 04:48 Immature Gran % (Auto) 0.2 % (0.0-0.4) 03/13/24 04:48 Neut % (Auto) 65.2 % (45-73) 03/13/24 04:48 Lymph % (Auto) 23.1 % (20-40) 03/13/24 04:48 [place] % (Auto) 10.3 % (2-11) 03/13/24 04:48 Eos % (Auto) 0.2 % (0-4) 03/13/24 04:48 Baso % (Auto) 1.0 % (0-2) 03/13/24 04:48 Lymph # (Auto) 1.1 X10*3/uL (1.2-4.9) L 03/13/24 04:48 [place] # (Auto) 0.5 X10*3/uL (0.1-1.2) 03/13/24 04:48 Eos # (Auto) 0.0 X10*3/uL (0.0-0.4) 03/13/24 04:48 Baso # (Auto) 0.1 X10*3/uL (0.0-0.2) 03/13/24 04:48 Abs Immat Gran (auto) 0.01 X10*3/uL (0.00-0.03) 03/13/24 04:48 Absolute Neuts (auto) 3.2 x10*3/uL (2.0-8.3) 03/13/24 04:48 Absolute Nucleated RBC 0.000 X10*3/uL (0.0-0.012) 03/13/24 04:48 Nucleated RBC % (auto) 0.0 /100WBC (0.0-0.2) 03/13/24 04:48 ESR 2 MM/HR (0-15) 03/12/24 15:29 PT 13.0 SEC (11.1-13.3) 03/12/24 16:29 INR 1.1 (0.9-1.1) 03/12/24 16:29 Sodium 145 mmol/L (135-145) 03/13/24 04:48 Potassium 3.6 mmol/L (3.3-5.1) 03/13/24 04:48 Chloride 109 mmol/L (96-108) H 03/13/24 04:48 Carbon Dioxide 26 mmol/L (22-29) 03/13/24 04:48 Anion Gap 14 (12-20) 03/13/24 04:48 BUN 10 mg/dL (9-16) 03/13/24 04:48 Creatinine 0.96 mg/dL (0.5-1.4) 03/13/24 04:48 Estim Creat Clear Calc 77.0 03/13/24 04:48 Estimated GFR > 60 03/13/24 04:48 Random Glucose 112 mg/dL (60-115) 03/13/24 04:48 Calcium 9.1 mg/dL (8.4-10.2) 03/13/24 04:48 Magnesium 2.1 mg/dL (1.6-2.6) 03/12/24 15:29 Total Bilirubin 0.6 mg/dL (0.0-1.0) 03/12/24 15:29 AST 14 U/L (5-37) 03/12/24 15:29 ALT 12 U/L (0-40) 03/12/24 15:29 Alkaline Phosphatase 69 U/L (39-117) 03/12/24 15:29 C-Reactive Protein 0.18 mg/dL (< or = 0.50) 03/12/24 15:29 Total Protein 7.2 g/dL (6.5-8.0) 03/12/24 15:29 Albumin 4.0 g/dL (3.5-5.0) 03/12/24 15:29 Urine Color Dark Yellow 03/12/24 15:55 Urine Appearance Clear 03/12/24 15:55 Urine pH 6.0 (5.0-9.0) 03/12/24 15:55 Ur Specific [place] 1.010 (1.005-1.025) 03/12/24 15:55 Urine Protein Negative mg/dL (Neg-Trace) 03/12/24 15:55 Urine Glucose (UA) Negative mg/dL (Negative) 03/12/24 15:55 Urine Ketones Negative mg/dL (Negative) 03/12/24 15:55 Urine Blood Negative (Negative) 03/12/24 15:55 Urine Nitrite Negative (Negative) 03/12/24 15:55 Ur Leukocyte Esterase Negative (Negative) 03/12/24 15:55 Blood Type O Positive 03/12/24 15:33 Antibody Screen NEGATIVE 03/12/24 15:[address] 03/12/24 15:10 IMPRESSION: No acute intracranial pathology. Electronically signed by: Law Frank MD 03/12/2024 05:32 PM EDT RP Brain MRI 03/12/24 20:28 IMPRESSION: Brain: Diffuse smooth pachymeningeal enhancement along the cerebral convexities and in the posterior fossa, most indicative for intracranial hypotension in the setting of a prior lumbar puncture. Otherwise, no acute process. Lumbar spine: No epidural fluid collection or pseudomeningocele identified. Multilevel lumbar spondylosis, most significant at the L4-L5 level with hypertrophic facet arthropathy and [id number] foraminal narrowing. No focal disc protrusion or central canal stenosis. Posterior disc bulge and moderate facet arthropathy impress upon the left S1 nerve root at the L5-S1 level with moderate foraminal narrowing. Electronically signed by: Law Frank MD 03/12/2024 09:20 PM EDT RP Lumbar Spine MRI 03/12/24 20:42 IMPRESSION: Brain: Diffuse smooth pachymeningeal enhancement along the cerebral convexities and in the posterior fossa, most indicative for intracranial hypotension in the setting of a prior lumbar puncture. Otherwise, no acute process. Lumbar spine: No epidural fluid collection or pseudomeningocele identified. Multilevel lumbar spondylosis, most significant at the L4-L5 level with hypertrophic facet arthropathy and zskz-yi-vadubdyv foraminal narrowing. No focal disc protrusion or central canal stenosis. Posterior disc bulge and moderate facet arthropathy impress upon the left S1 nerve root at the L5-S1 level with moderate foraminal narrowing. Electronically signed by: Law Frank MD 03/12/2024 09:20 PM EDT RP Discharge Plan Discharge Patient Disposition: Home, Self-Care Discharge Diagnosis: headache Referrals: Maribeth Talamantes MD [Primary Care Provider] - 1 Week Discharge Medications: Continued riboflavin (vitamin B2) 400 mg tablet 400 mg PO DAILY 30 Days Qty: 30 6RF magnesium oxide 400 mg (241.3 mg magnesium) tablet 400 mg PO BEDTIME 30 Days Qty: 30 6RF Rx Instructions: may hold for loose stools memantine 28 mg capsule,sprinkle,ER 24hr 28 mg PO DAILY 30 Days Qty: 30 6RF amlodipine 5 mg tablet 5 mg PO DAILY Qty: 90 1RF polyethylene glycol 3350 [Miralax] 17 gram/dose powder 17 g PO DAILY PRN (Reason: Constipation) quetiapine 25 mg tablet 25 mg PO BEDTIME qykjagyljs-rhhwyespytmqj-dbys 50-325-40 mg tablet 1 tab PO Q4-6H PRN (Reason: pain) Qty: 10 0RF lisinopril 40 mg tablet 40 mg PO DAILY 90 Days Qty: 90 1RF (DME) seat cushion donut shape See Rx Instructions .Route .MEDSUPPLY Qty: 1 0RF Rx Instructions: As directed hydrocortisone [Proctozone-HC] 2.5 % cream with perineal applicator [address] BID PRN (Reason: hemorrhoids) Qty: 30 3RF Rx Instructions: apply CT BID prn docusate sodium [Colace] 100 mg capsule 200 mg PO BEDTIME Qty: 60 5RF tamsulosin 0.4 mg capsule 0.4 mg PO BEDTIME 30 Days Qty: 30 2RF Discharge Orders: Discharge Order (Routine); Ordered 03/14/24 Ordered By: Eyad Elaine Diet: Advance to usual diet Activity on Discharge: As tolerated Stand Alone Forms: Patient Portal Discharge page Print Language: Chilean Care Plan Goals: relief of headache Health Concerns: headache Plan of Treatment: take acetaminophen [Tylenol] for mild-moderate pain take Fioricet for severe pain drink plenty of fluids Please follow up with your primary care doctor within 1 week. Return to the hospital if you experience recurrent or worsening symptoms. Assessment: See Discharge Summary.
--- NOTE | 2024-03-14 10:59 | MHC.CM.PN ---
Per MD rounds patient medically cleared for dc home self care. is at bedside to transport.
== END 2024-03-14 12:15 | disposition home or self-care (01) ==
LOC: HO.ED 21:50 → HO.EDOVER 22:20 → HO.S3 03-13 20:38
PROVIDERS: Physician Assistant; Student in an Organized Health Care Education/Training Program; Admitting Provider Student in an Organized Health Care Education/Training Program; Emergency Provider Emergency Medicine; PCP Internal Medicine; Visit Provider Family Medicine
DX: G97.1 Other reaction to spinal and lumbar puncture (principal); R51.9 Headache, unspecified; I10 Essential (primary) hypertension; G30.9 Alzheimer's disease, unspecified; F02.80 Dementia in other diseases classified elsewhere, unspecified severity, without behavioral disturbance, psychotic disturbance, mood disturbance, and anxiety; Z79.899 Other long term (current) drug therapy
CPT/HCPCS: 36415; 70450; 70553; 72158; 80048; 80053; 81003; 83735; 85025; 85610; 85652; 86140; 86850; 86900; 86901; 96361; 96374; 96376; 99221; 99285; A9585; J2270

== ENCOUNTER → 2024-03-12 22:11 | Outpatient (BNV) | payer OTHER, SELFPAY | PROVIDERS: Admitting Provider Student in an Organized Health Care Education/Training Program; Emergency Provider Emergency Medicine; PCP Internal Medicine; Visit Provider Student in an Organized Health Care Education/Training Program | DX: G97.1 Other reaction to spinal and lumbar puncture (principal); R51.9 Headache, unspecified | CPT/HCPCS: 99222; 99232; 99239 ==

== ENCOUNTER 2024-03-21 10:32 | Outpatient (AMB) | payer OTHER, SELFPAY ==
[2024-03-21 10:37] VITALS: BP 118/82; PULSE 70; O2SAT 94; BMI 22.3
--- NOTE | 2024-03-21 10:37 | MHC.PC.OV ---
Vital Signs 03/21/24 10:37 Height 5 ft 9 in Weight 151 lb BMI 22.3 BP 118/82 Blood Pressure Location Lt brachial Position Sitting Pulse 70 Pulse Source Pulse Oximeter Pulse Oximetry (%) 94 Oxygen Delivery Method Room Air Intake Visit Reasons: TCM [facility] 03/14 Headaches/Not eating Yard Specialist Required: No Allergies No Known Allergies Allergy (Verified 03/21/24 10:37) Tobacco use date assessed: 08/22/23 Dental Screening Dental Screen Date: 08/22/23 [facility] TCM TCM Information Date of Discharge 03/14/24 Discharged From [facility] HPI Comments History of Present Illness Details 63 y/o male patient who presents to the clinic today for TCM. Pt was admitted at [facility] on and discharged home on 03/14/24. Pt was admitted for severe headaches, that were thought to be caused by Lumbar puncture done on 03/09/24 @ [facility] [place] due to progressive Dementia symptoms. Post Epidural headaches were ruled-out and he never had Spinal blood patch done. Today feels much better, and he is accompanied by who provides history. reports that Patient has been feeling anxious and not sleeping well at night. Neurology increased his Quetiapine to 25 mg BID. Pt has been diagnosed with Dementia and currently takes Memantine. believes his Dementia symptoms are getting worse everyday. asking for Hospital bed, since Pt keeps falling off the regular bed. [facility] Medical History Forgetfulness Hypertension Surgical History Hx of colonoscopy Family History Mother Dementia Father Colon cancer Social History Housing: House Alcohol intake: never Patient Tobacco Use Status: Former Tobacco user Tobacco use type: Cigarette e-Cigarette/Vaping Use: Never Used Second Hand Smoke Exposure: No service: No Current occupational status: unemployed Cognitive needs: No Hearing needs: No Vision needs: No Questionnaire PHQ-9 Over the last 2 weeks, how often have you been bothered by any of the following problems? 1. Little interest or pleasure in doing things: not at all 2. Feeling down, depressed, or hopeless: several days 3. Trouble falling or staying asleep, or sleeping too much: several days 4. Feeling tired or having little energy: not at all 5. Poor appetite or overeating: several days 6. Feeling bad about yourself - or that you are a failure or have let yourself or your family down: not at all 7. Trouble concentrating on things, such as reading the newspaper or watching television: not at all 8. Moving or speaking so slowly that other people could have noticed. Or the opposite - being so fidgety or restless that you have been moving around a lot more than usual: not at all 9. Thoughts that you would be better off or of hurting yourself in some way: not at all Total score: 3 Depression Screening Interpretation: Negative Depression Screening Done: Yes [id number] - PHQ-9 Billing: Yes Source: Developed by Drs. Gonzales Dennison, Kary Herrera, Adalberto Duarte and colleagues, with an educational bj from [employer]. Thrive Questionnaire Date Thrive assessed: 03/13/24 Are you currently unemployed and looking for a job?: No AUDIT C Alcohol Use Questionnaire (AUDIT-C) 1. How often do you have a drink containing alcohol?: Never Total Score: 0 SAVITA-7 AMB Questionnaire SAVITA-7 Date SAVITA - 7 assessed: 08/22/23 Source: Developed by Drs. Gonzales Dennison, Kary Herrera, Adalberto Duarte and colleagues, with an educational bj from [employer]. Review of Systems Const All systems reviewed & are unremarkable except as noted in HPI and below Physical exam (Primary Care) Vital Signs: Last Vital Signs Pulse 70 03/21/24 10:37 BP 118/82 03/21/24 10:37 Pulse Ox 94 03/21/24 10:37 Oxygen Delivery Method Room Air 03/21/24 10:37 BMI result Body Mass Index 22.3 Tobacco/Smoking Status: Tobacco use Status Tobacco use date assessed 08/22/23 03/21/24 10:40 Patient Tobacco Use Status Former Tobacco user 03/21/24 10:40 Tobacco use type Cigarette 03/21/24 10:40 e-Cigarette/Vaping Use Never Used 03/21/24 10:40 PHQ-9: PHQ-9 Score PHQ-9: Total score 3 03/21/24 11:31 Depression Screening Interpretation: Negative Thrive Assessment: Date of Thrive Assessment Date Thrive assessed 03/13/24 03/21/24 10:40 Const General: cooperative and no acute distress Nutritional Appearance: well nourished Orientation/consciousness: patient oriented x3 HENMT Head: Yes normocephalic Resp Effort & Inspection: normal respiratory effort and able to speak in complete sentences Auscultation: clear to auscultation bilaterally Cardio Heart sounds: S1 normal heart sound present and S2 normal heart sound present Skin General skin exam: no rashes or lesions noted Neuro General: patient oriented x3, gait normal and moves all extremities Psych Speech and movement: Normal speech and movement present Affect: Labile affect present and Sad affect present Assessment and Plan Assessment & Plan (1) PSEN1-related Alzheimer's disease: Code(s): G30.0 - Alzheimer's disease with early onset; F02.80 - Dementia in other diseases classified elsewhere, unspecified severity, without behavioral disturbance, psychotic disturbance, mood disturbance, and anxiety Plan: Managed by Neurology. (2) Anxiety: Code(s): F41.9 - Anxiety disorder, unspecified Plan: Started Buspirone 15 mg BID Recommended Therapy. (3) Generalized headaches: Code(s): R51.9 - Headache, unspecified Plan: Acetaminophen for pain relief. Medications: New buspirone 15 mg PO BID 60 tabs 1RF F41.9 - Anxiety disorder, unspecified Coding Level of Care Code TCM Mod MDM <= 7 Days Diagnoses PSEN1-related Alzheimer's disease G30.0; F02.80 Anxiety F41.9 Generalized headaches R51.9 Time Spent (min) 20
== END 2024-03-21 11:27 | disposition home or self-care (01) ==
PROVIDERS: PCP Internal Medicine; Visit Provider Nurse Practitioner Family
DX: G30.0 Alzheimer's disease with early onset (principal); F02.80 Dementia in other diseases classified elsewhere, unspecified severity, without behavioral disturbance, psychotic disturbance, mood disturbance, and anxiety; F41.9 Anxiety disorder, unspecified; R51.9 Headache, unspecified

== ENCOUNTER → 2024-03-21 10:32 | Outpatient (BNVA) | payer OTHER, SELFPAY | PROVIDERS: PCP Internal Medicine; Visit Provider Nurse Practitioner Family | DX: G30.0 Alzheimer's disease with early onset (principal); F02.80 Dementia in other diseases classified elsewhere, unspecified severity, without behavioral disturbance, psychotic disturbance, mood disturbance, and anxiety; F41.9 Anxiety disorder, unspecified; R51.9 Headache, unspecified | CPT/HCPCS: 99212 ==

== ENCOUNTER → 2024-04-09 11:44 | Outpatient (REF) | payer OTHER, SELFPAY ==
--- NOTE | 2024-04-09 12:00 | ECG_ITS ---
Test Reason : r94.31 Blood Pressure : / mmHG Vent. Rate : 069 BPM Atrial Rate : 069 BPM P-R Int : 162 ms QRS Dur : 096 ms QT Int : 406 ms P-R-T Axes : 065 -39 036 degrees QTc Int : 435 ms Normal sinus rhythm Left axis deviation Abnormal ECG When compared with ECG of 09-MAR-2024 14:43, Nonspecific T wave abnormality no longer evident in Inferior leads Referred By: Maribeth Barros Electronically Signed By:BON BARNES MD
== END ==
LOC: HO.CARD 11:44
PROVIDERS: PCP Internal Medicine; Visit Provider Internal Medicine
DX: R94.31 Abnormal electrocardiogram [ECG] [EKG] (principal)
CPT/HCPCS: 93005

== ENCOUNTER → 2024-04-09 12:00 | Outpatient (BNV) | payer OTHER, SELFPAY | PROVIDERS: PCP Internal Medicine; Visit Provider Internal Medicine Cardiovascular Disease | DX: R94.31 Abnormal electrocardiogram [ECG] [EKG] (principal) | CPT/HCPCS: 93010 ==

== ENCOUNTER 2024-05-16 14:09 | Outpatient (AMB) | payer OTHER, SELFPAY ==
--- NOTE | 2024-05-16 14:11 | MHC.PC.OV ---
Vital Signs 05/16/24 14:12 Height 5 ft 9 in Weight 156 lb BMI 23.0 BP 138/80 Blood Pressure Location Lt brachial Position Sitting Intake Visit Reasons: bp Intake Note: Patient here for a follow up BP Computerized Table Cutter Required: No Accompanied by: Spouse Allergies No Known Allergies Allergy (Verified 05/16/24 14:29) Medication List - Last Reconciled 05/16/24 by Maribeth Barros MD amlodipine 5 mg PO DAILY buspirone 15 mg PO BID lqdyahwdjk-zipzmsxqwshxw-tjnv 50-325-40 mg 1 tab PO Q4-6H PRN docusate sodium (Colace) 200 mg (2 x 100 mg) PO BEDTIME food supplemt, lactose-reduced (Ensure oral liquid) 1 ea PO .twice a day 12 days hospital bed As directed hydrocortisone 2.5% (Proctozone-HC) 1 appl [place] BID PRN lisinopril 40 mg PO DAILY 90 days magnesium oxide 400 mg PO BEDTIME 30 days memantine 28 mg PO DAILY 30 days polyethylene glycol 3350 (Miralax) 17 grams PO DAILY PRN quetiapine 25 mg PO BEDTIME riboflavin (vitamin B2) 400 mg PO DAILY 30 days [seat cushion donut shape As directed] tamsulosin 0.4 mg PO BEDTIME 30 days Tobacco use date assessed: 08/22/23 Dental Screening Dental Screen Date: 05/16/24 Did you have a dental visit in the last 12 months?: Yes Did you have a dental problem in the last 6 months where you did not have access to dental care?: No Was dental information given to patient?: Patient has dentist HPI HPI Comments History of Present Illness Details This is a 63-year-old male with hypertension, dementia, chronic idiopathic constipation and anxiety that comes today accompanied by for follow-up on his conditions. Blood pressure stable. Dementia is follow by Neurology and is on memantine. Today he is awake, alert and oriented to person and place but not to time. He has forgot how to eat but nutritional supplements has significantly help him to maintain the weight. Constipation stable with medication. Anxiety stable with buspirone. No chest pain or shortness on breath. [facility] Medical History (Updated 05/17/24 @ 18:38 by Maribeth Barros MD) Post-dural puncture headache Forgetfulness Hypertension Surgical History Hx of colonoscopy Family History Mother Dementia Father Colon cancer Social History Housing: House Alcohol intake: never Patient Tobacco Use Status: Former Tobacco user Tobacco use type: Cigarette e-Cigarette/Vaping Use: Never Used Second Hand Smoke Exposure: No service: No Current occupational status: unemployed Cognitive needs: No Hearing needs: No Vision needs: No Questionnaire Thrive Questionnaire Date Thrive assessed: 03/13/24 Are you currently unemployed and looking for a job?: No SAVITA-7 AMB Questionnaire SAVITA-7 Date SAVITA - 7 assessed: 08/22/23 Source: Developed by Drs. Gonzales Dennison, Kary Herrera, Adalberto Duarte and colleagues, with an educational bj from [employer]. Review of Systems Const All systems reviewed & are unremarkable except as noted in HPI and below Card Denies chest pain at rest, Denies chest pain with activity, Denies edema, Denies irregular heart rhythm, Denies claudication, Denies dyspnea, Denies dyspnea on exertion, Denies orthopnea, Denies paroxysmal nocturnal dyspnea and Denies slow heart rate Resp Denies cough, Denies dyspnea and Denies dyspnea on exertion GI Denies abdominal pain, Denies change in bowel habits, Denies excessive flatus, Denies nausea and Denies vomiting Physical exam (Primary Care) Vital Signs: Last Vital Signs BP 138/80 05/16/24 14:12 BMI result Body Mass Index 23.0 Tobacco/Smoking Status: Tobacco use Status Tobacco use date assessed 08/22/23 05/16/24 14:16 Patient Tobacco Use Status Former Tobacco user 05/16/24 14:16 Tobacco use type Cigarette 05/16/24 14:16 e-Cigarette/Vaping Use Never Used 05/16/24 14:16 Thrive Assessment: Date of Thrive Assessment Date Thrive assessed 03/13/24 05/16/24 14:16 Const Orientation/consciousness: oriented to person and oriented to place Resp Effort & Inspection: normal respiratory effort Auscultation: clear to auscultation bilaterally Cardio Jugular venous distension: no JVD Rate: regular rate Rhythm: regular rhythm Heart sounds: S1 normal heart sound present and S2 normal heart sound present Neuro General: oriented to person and oriented to place Extrem General: Yes full ROM Office Procedures Flu Questionnaire Does the patient have a severe egg allergy?: No Does the patient have severe life threatening allergies?: No Does the patient have a fever or illness today?: No Has the patient ever had Guillain-[place] Syndrome?: No Has the patient ever had any past reaction to a flu shot?: No Immunizations Fluarix Triv [id number] (PF) 45 mcg (15 mcg x 3)/0.5 mL IM syringe Performing Provider: Maribeth Barros MD [facility] Documented (not given) by: KANA Shaikh on 05/16/24 15:05 Reason Not Given: Not Given Coding Level of Care Code Est Pt Level 4 (55120) Complex EM visit Add On G2211 Diagnoses Primary hypertension I10 Hypertension type: primary hypertension PSEN1-related Alzheimer's disease G30.0; F02.80 Chronic idiopathic constipation K59.04 Anxiety F41.9 Time Spent (min) 23 Assessment & Plan Assessment & Plan (1) Hypertension: Code(s): I10 - Essential (primary) hypertension Category: Medical Qualifiers: Hypertension type: primary hypertension Qualified Code(s): I10 - Essential (primary) hypertension Plan: Continue amlodipine and lisinopril. Blood pressure goal is equal or less than 130/80. (2) PSEN1-related Alzheimer's disease: Code(s): G30.0 - Alzheimer's disease with early onset; F02.80 - Dementia in other diseases classified elsewhere, unspecified severity, without behavioral disturbance, psychotic disturbance, mood disturbance, and anxiety Category: Medical Plan: Continue memantine. Follow-up with Neurology. (3) Chronic idiopathic constipation: Code(s): K59.04 - Chronic idiopathic constipation Category: Medical Plan: Continue MiraLax as needed. (4) Anxiety: Code(s): F41.9 - Anxiety disorder, unspecified Category: Medical Plan: Continue buspirone. Orders: Orders Influenza [id number] Immunization 05/16/24 Z23 - Encounter for immunization
[2024-05-16 14:12] VITALS: BP 138/80; BMI 23.0
== END 2024-05-16 14:42 | disposition home or self-care (01) ==
PROVIDERS: PCP Internal Medicine; Visit Provider Internal Medicine
DX: I10 Essential (primary) hypertension (principal); G30.0 Alzheimer's disease with early onset; F02.80 Dementia in other diseases classified elsewhere, unspecified severity, without behavioral disturbance, psychotic disturbance, mood disturbance, and anxiety; K59.04 Chronic idiopathic constipation; F41.9 Anxiety disorder, unspecified

== ENCOUNTER → 2024-05-16 14:09 | Outpatient (BNVA) | payer OTHER, SELFPAY | PROVIDERS: PCP Internal Medicine; Visit Provider Internal Medicine | DX: I10 Essential (primary) hypertension (principal); G30.0 Alzheimer's disease with early onset; F02.80 Dementia in other diseases classified elsewhere, unspecified severity, without behavioral disturbance, psychotic disturbance, mood disturbance, and anxiety; K59.04 Chronic idiopathic constipation; F41.9 Anxiety disorder, unspecified | CPT/HCPCS: 90471; 99212 ==

== ENCOUNTER 2024-09-03 14:45 | Outpatient (AMB) | payer OTHER, SELFPAY ==
[2024-09-03 14:48] VITALS: BP 120/74; PULSE 66; BMI 24.4
--- NOTE | 2024-09-03 14:48 | MHC.OFFVIS ---
Vital Signs 09/03/24 14:48 Height 5 ft 9 in Weight 165 lb 5.547 oz BMI 24.4 BP 120/74 Blood Pressure Location Lt brachial Position Sitting Pulse 66 Intake Visit Reasons: Abnormal electrocardiogram [ECG] [EKG] Intake Note: New patient abnormal ekg feeling good Letter Carrier Required: Yes Letter Carrier Services: Letter Carrier Present Letter Carrier Name: kathleen bess Administration Physician: Administration Physician Present Allergies No Known Allergies Allergy (Verified 05/16/24 14:29) Medication List - Last Reconciled 09/03/24 by Preet Schaefer MD amlodipine 5 mg PO DAILY buspirone 15 mg PO BID chdtpqgcen-smelwizjszuis-izzk 50-325-40 mg 1 tab PO Q4-6H PRN docusate sodium (Colace) 200 mg (2 x 100 mg) PO BEDTIME food supplemt, lactose-reduced (Ensure oral liquid) 1 ea PO .twice a day 12 days hospital bed As directed hydrocortisone 2.5% (Proctozone-HC) 1 appl [place] BID PRN lisinopril 40 mg PO DAILY 90 days magnesium oxide 400 mg PO BEDTIME 30 days memantine 28 mg PO DAILY 30 days polyethylene glycol 3350 (Miralax) 17 grams PO DAILY PRN quetiapine 12.5 - 25 mg (0.5 - 1 x 25 mg) PO BEDTIME 30 days riboflavin (vitamin B2) 400 mg PO DAILY 30 days [seat cushion donut shape As directed] tamsulosin 0.4 mg PO BEDTIME 30 days HPI Comments Details: Levon was referred here for an abnormal EKG. He is accompanied by his . History was obtained help of a presence of certified press maintainer. Patient says that he has no cardiac symptoms. He has early-onset dementia, genetic. He as per the has memory loss and confusion at home otherwise he is doing well. Physically has no issues. He remains very active and denies any exertional chest pain or shortness of breath. EKG done today in the office shows nonspecific ST abnormality. He was history of hypertension which is well controlled as per the on current therapy. Denies any orthopnea, PND, leg edema. Denies any prolonged palpitation irregular heartbeat. [facility] Medical History Post-dural puncture headache Forgetfulness Hypertension Surgical History Hx of colonoscopy Family History Mother Dementia Father Colon cancer Social History Housing: House Alcohol intake: never Patient Tobacco Use Status: Former Tobacco user Tobacco use type: Cigarette e-Cigarette/Vaping Use: Never Used Second Hand Smoke Exposure: No service: No Current occupational status: unemployed Cognitive needs: No Hearing needs: No Vision needs: No Review of Systems Const Denies chills, Denies daytime sleepiness, Denies fatigue, Denies fever(s), Denies frequent falls, Denies poor appetite, Denies snoring, Denies stops breathing during sleep, Denies weakness, Denies weight gain and Denies weight loss Eyes Denies loss of vision ENT Denies dizziness and Denies hearing loss Card Denies chest pain, Denies claudication, Denies leg edema, Denies lightheadedness, Denies palpitations, Denies dyspnea, Denies dyspnea on exertion and Denies orthopnea Resp Denies cough, Denies excessive phlegm production, Denies dyspnea, Denies dyspnea on exertion, Denies snoring and Denies wheezing GI Denies abdominal pain, Denies hematochezia, Denies change in bowel habits, Denies nausea and Denies vomiting Denies dysuria and Denies urinary frequency Musc Denies arthralgias, Denies muscle weakness, Denies numbness and Denies other (frequent falls) Skin/Breast Denies nail changes and Denies rash Neuro Denies Abnormal speech present, Denies dizziness, Denies frequent falls, Denies loss of vision, Denies memory loss, Denies numbness and Denies weakness Psych Denies depression and Denies memory loss Endo Denies fatigue and Denies palpitations Ayaan/Lymph Reports easy bruising and Reports other (anemia) Aller/Immun Denies wheezing Physical Exam Vital Signs: Last Vital Signs Pulse 66 09/03/24 14:48 BP 120/74 09/03/24 14:48 BMI result Body Mass Index 24.4 Const General: cooperative, comfortable, no acute distress, well developed, alert, awake and Physically active Nutritional Appearance: average body habitus Orientation/consciousness: patient oriented x3 Limitations: no limitations HEENT Head: Yes normocephalic and Yes atraumatic Neck Neck: Yes trachea midline, Yes supple and Yes no JVD Resp Effort & Inspection: normal respiratory effort Auscultation: clear to auscultation bilaterally Cardio Jugular venous distension: no JVD Palpation: normal PMI Rate: regular rate Rhythm: regular rhythm Heart sounds: S1 normal heart sound present, S2 normal heart sound present, no click, no gallops, no murmurs and no rubs GI Auscultation: normal bowel sounds Skin General skin exam: no rashes or lesions noted Neuro General: patient oriented x3 and no focal motor deficits Speech: No Abnormal speech present Extrem General: Yes no clubbing, cyanosis or edema Office Procedures EKG Details: EKG shows normal sinus rhythm nonspecific ST abnormality 37158-[id number], Complete Assessment & Plan Assessment & Plan (1) Abnormal EKG: Code(s): R94.31 - Abnormal electrocardiogram [ECG] [EKG] Category: Medical Plan: Abnormal EKG in this middle-aged man without any obvious cardiac symptoms. He was no exertional symptoms of chest pain or shortness of breath. Myocardial ischemia is very unlikely. Possible related to hypertension hypertension related heart disease. Advised to obtain echocardiogram to further assess for the same. Otherwise no other workup is required. Once echocardiogram performed will review it. If any abnormalities will see him in the office otherwise manage his blood pressure aggressively. Continue maintain activity level as tolerated. Advised to call me with any new symptoms. Will follow up in the clinic if need be. Thank you for allowing me to partake in his care Coding Level of Care Code New Pt Level 4 (96803) Complex EM visit Add On G2211 Diagnoses Abnormal EKG R94.31 CPT Codes EKG - CPT: 19020-[id number], Complete ([id number])
== END 2024-09-03 15:13 | disposition home or self-care (01) ==
PROVIDERS: PCP Internal Medicine; Visit Provider Internal Medicine Cardiovascular Disease
DX: R94.31 Abnormal electrocardiogram [ECG] [EKG] (principal)
CPT/HCPCS: 93010; 99214; G2211

== ENCOUNTER → 2024-09-03 14:45 | Outpatient (BNVA) | payer OTHER, SELFPAY | PROVIDERS: PCP Internal Medicine; Visit Provider Internal Medicine Cardiovascular Disease | DX: R94.31 Abnormal electrocardiogram [ECG] [EKG] (principal) | CPT/HCPCS: 93005; 99212 ==

== ENCOUNTER 2024-09-10 10:56 | Outpatient (AMB) | payer OTHER, SELFPAY ==
[2024-09-10 10:56] VITALS: BP 142/90; PULSE 85; O2SAT 97; BMI 20.7
--- NOTE | 2024-09-10 10:56 | A.OFFVIS_ITS ---
Vital Signs 09/10/24 10:56 Height 5 ft 9 in Weight 140 lb BMI 20.7 BP 142/90 H Blood Pressure Location Lt brachial Position Sitting Pulse 85 Pulse Source Pulse Oximeter Pulse Oximetry (%) 97 Oxygen Delivery Method Room Air Intake Visit Reasons: Follow up Intake Note: Patient presents follow up Dementia Roller Staker Required: No Allergies No Known Allergies Allergy (Verified 09/10/24 10:59) Medication List - Last Reconciled 09/10/24 by JS aRo amlodipine 5 mg PO DAILY buspirone 15 mg PO BID docusate sodium (Colace) 200 mg (2 x 100 mg) PO BEDTIME food supplemt, lactose-reduced (Ensure oral liquid) 1 ea PO .twice a day 12 days hospital bed As directed hydrocortisone 2.5% (Proctozone-HC) 1 appl [place] BID PRN lisinopril 40 mg PO DAILY 90 days magnesium oxide 400 mg PO BEDTIME 30 days memantine 28 mg PO DAILY 30 days polyethylene glycol 3350 (Miralax) 17 grams PO DAILY PRN quetiapine 12.5mg q afternoon and 25mg qhs, may use extra 12.5mg qd prn orally .; 30 days riboflavin (vitamin B2) 400 mg PO DAILY 30 days [seat cushion donut shape As directed] tamsulosin 0.4 mg PO BEDTIME 30 days HPI Comments Details: 63-yr-old male presents for f/u visit, pt is accompanied by his . The LP for Alzheimer's diagnostic testing March was unsuccessful. Unfortunately, afterwards he did develop a posterior headache, which was treated in the ER. Patient's states she does not know when their next is [facility] cognitive disorder clinic appointment is or what the current treatment plan is. He also had recent cardiology eval for abnormal EKG, states they are awaiting an echocardiogram appointment. reports his memory is worse. Pt states he is trying his best. He cannot do a two step task, and sometimes does not even do the 1st task. Pt is having more difficulty getting dressed- putting on his clothes backwards. He sometimes seems to not even see something in front of him. He is not sleeping well- waking up a few times a night. He does nap for 5 minutes at a time. He does try to be active, but sometimes can sit in the same chair for a while- and may doze off in the chair. He can become frustrated when he feels he is being told what to do- for instance, if tries to let him know that his shirt is on backwards. He is eating ok. He occasionally has constipation- prn colace helps. Has occasional mild headache, but no other pain s/s. Denies gait changes- but sometimes has to be mindful about his steps. 02/28/2024 HPI: Pt had had initial cognitive consult in [place], had EEG- results pending. He is scheduled for an LP on 03/08/24. 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 Each of pt's sons has a ?each of his sons is at 50% risk for inheriting the variant and developing early onset AD, however pt has not been able to contact his sons. Pt reports he is trying to adjust to his new diagnosis. Pt asks what is the difference between Alzheimer's and dementia. He states he has good days and some days that are worse. There are days where he is more confused. He may forget where his bedroom, bathroom, or refrigerator is. He does have days where he has trouble knowing what to say, choosing his words, losing his train of thought, changing topics, and following along during conversations. He is prone to misplacing things- states all over the place. She often has to look for things he has misplaced or moved. He is eating ok, sometimes better than others. Weight is stable. He lives with his and granddtr and grandchildren- pt states 3-4 grandchildren. They live in a 1 floor house. [facility] Medical History Post-dural puncture headache Forgetfulness Hypertension Surgical History Hx of colonoscopy Family History Mother Dementia Father Colon cancer Social History Housing: House Alcohol intake: never Patient Tobacco Use Status: Former Tobacco user Tobacco use type: Cigarette e-Cigarette/Vaping Use: Never Used Second Hand Smoke Exposure: No service: No Current occupational status: unemployed Cognitive needs: No Hearing needs: No Vision needs: No Physical Exam Vital Signs: Last Vital Signs Pulse 85 09/10/24 10:56 BP 142/90 H 09/10/24 10:56 Pulse Ox 97 09/10/24 10:56 Oxygen Delivery Method Room Air 09/10/24 10:56 BMI result Body Mass Index 20.7 Const General: cooperative and no acute distress Orientation/consciousness: oriented to person HEENT Head: Yes normocephalic Resp Effort & Inspection: normal respiratory effort and able to speak in complete sentences Neuro Other: He is able to state his 's name- Maritza. Unable to state date, month, year. 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 Continue Memantine 21mg daily. Increase quetiapine from12.5-25 mg q.h.s. to 12.5 mg Q evening and 25 mg q.h.s., may use extra 12.5 mg per day p.r.n.. Continue 23/01 supportive care. Patient has FUNERAL COUNSELOR services- his granddaughters are his FUNERAL COUNSELOR. Discussed strategies to manage patient's cognitive and behavioral symptoms of Alzheimer's, including redirection, offering limited choices, stepping back and we approaching as needed. Encourage to take time every week to herself- even it for just a few hours. ? For headache- Continue B2 and Mag for prevention. May use Advil or Ibuprofen prn for now. ? Follow-up in 3-6 months or sooner. Medications: Changed From quetiapine 12.5 - 25 mg (0.5 - 1 x 25 mg) PO BEDTIME 30 days 30 tabs 3RF To quetiapine 12.5mg q afternoon and 25mg qhs, may use extra 12.5mg qd prn orally .; 30 days 60 tabs 3RF Refilled riboflavin (vitamin B2) 400 mg PO DAILY 30 days 30 tabs 6RF Discontinued uuhyzbghyx-cqwiotoahvbnz-agai 50-325-40 mg Discontinued Reason: Doctor's Order 1 tab PO Q4-6H PRN 10 tabs 0RF pain Coding Level of Care Code Est Pt Level 4 (00824) Diagnoses PSEN1-related Alzheimer's disease G30.0; F02.80 Family history of dementia Z81.8 Headache R51.9
== END 2024-09-10 11:57 | disposition home or self-care (01) ==
LOC: HO.HSMS 10:56
PROVIDERS: PCP Nurse Practitioner Family; Visit Provider Nurse Practitioner Family
DX: G30.0 Alzheimer's disease with early onset (principal); F02.80 Dementia in other diseases classified elsewhere, unspecified severity, without behavioral disturbance, psychotic disturbance, mood disturbance, and anxiety; Z81.8 Family history of other mental and behavioral disorders; R51.9 Headache, unspecified
CPT/HCPCS: 99214

== ENCOUNTER → 2024-09-10 10:56 | Outpatient (BNVA) | payer OTHER, SELFPAY | PROVIDERS: PCP Nurse Practitioner Family; Visit Provider Nurse Practitioner Family | DX: G30.0 Alzheimer's disease with early onset (principal); F02.80 Dementia in other diseases classified elsewhere, unspecified severity, without behavioral disturbance, psychotic disturbance, mood disturbance, and anxiety; R51.9 Headache, unspecified; Z81.8 Family history of other mental and behavioral disorders | CPT/HCPCS: 99212 ==

== ENCOUNTER → 2024-10-03 14:16 | Outpatient (REF) | payer OTHER, SELFPAY ==
--- NOTE | 2024-10-03 14:18 | CA_ITS ---
Transthoracic Echocardiogram Patient (Last, First, Middle): Levon Jeong O Gender: Male Date of : 1960 Age: 64 Procedure Date: 10/03/2024 Procedure Type: Transthoracic Echocardiogram Location: OP Height: 175.26 cm Weight: 63.5 kg BSA: 1.78 m2 Heart Rate: 62 bpm BP: 140 / 84 mmHg First Breaker Feeder: SB/RC Referring MD: Preet Schaefer MD Symptoms: R94.31 - Abnormal electrocardiogram [ECG] [EKG] Study Quality: Adequate ECG Rhythm: Sinus Conclusions: - The left ventricular systolic function is normal. The calculated ejection fraction is 68% by biplane method. - No obvious valvular pathology seen on this study. Findings Left Ventricle Normal left ventricular cavity size. There is normal left ventricular wall thickness. The left ventricular systolic function is normal. The calculated ejection fraction is 68% by biplane method. There is no evidence of regional wall motion abnormalities. Diastolic function is normal for age. Right Ventricle Normal right ventricular cavity size and systolic function. Atria Both atria are normal in size. Aortic Valve There is a normal trileaflet aortic valve. There is no aortic valve stenosis. There is no aortic valve regurgitation. Mitral Valve The mitral valve appears normal. There is no mitral valve regurgitation. There is no mitral valve stenosis. Pulmonic Valve The pulmonic valve is likely normal. Tricuspid Valve There is trace tricuspid valve regurgitation. There is no evidence of pulmonary hypertension. Great Vessels The asc aorta is normal in size. Venous The inferior vena cava is normal in size and collapses greater than 50% with inspiration. Pericardium/Pleural There is no evidence of pericardial effusion. Prior Study Comparison No prior study available for comparison. Recommendations, Care & Conclusions No obvious valvular pathology seen on this study. Measurements 2D Linear Measurements IVSd: 0.85 0.6-0.9/0.6-1.0 cm LVIDd: 5.35 3.9-5.3/4.2-5.9 cm LVIDd Index: 3.01 2.4-3.2/2.2-3.1 cm/m2 LVIDs: 3.27 2.0-3.6 cm LVPWd: 0.82 0.7-1.1 cm LA Diam: 3.50 2.7-3.8/3.0-4.0 cm LAIDs Index: 1.97 1.5-2.3 cm/m2 LV Mass: 200.38 67-162/88-224 g LV Mass Index: 112.57 43-95/49-115 g/m2 LVOT Diam: 2.40 3.0+(-)1.3 cm 2D Systolic Function EF 4C: 69.70 >55% EF 2C: 68.00 >55% EF BiP: 68.20 >55% Mitral Valve MV Pk E: 0.74 MV PK A: 0.52 MV Decel Time: 184.00 E/A: 1.40 E'Lateral: 7.83 E'Medial: 6.96 E/E' Med: 10.60 E/E' Lat: 9.40 PHT: 54.00 MVA PHT: 4.07 Decel [place]: 4.00 Aortic Valve AoV Pk Ajit: 1.40 AoV Pk Grad: 8.00 JONA: 3.50 LVOT LVOT Pk Ajit: 1.11 LVOT Mn Ajit: 0.73 LVOT VTI: 0.23 LVOT Pk Grad: 5.00 LVOT Mn Grad: 2.00 LVOT Diam: 2.40 LVOT Area: 4.52 Diastolic Function MV Pk E: 0.74 MV Pk A: 0.52 E/A: 1.40 E'Medial: 6.96 E/E' Med: 10.60 E' Laterial: 7.83 E/E' Lat: 9.40 Right Ventricle TAPSE (mm): 28.60 TVS' Ajit: 15.10 Tricuspid Valve RA Press: 3.00 Great Vessels Aorta Sinus of Valsalva: 3.20 2.0-3.5 cm Ao Asc: 3.60 2.1-3.4 cm Pulmonary Valve PV Pk Ajit: 1.28 Peak PV Grad: 7.00 Updated in Other Vendor System with Status of Final See Allan MD electronically signed on 10/05/2024 10:41:03 AM with status of Final
== END ==
LOC: HO.CARD 14:16
PROVIDERS: PCP Internal Medicine; Visit Provider Internal Medicine Cardiovascular Disease
DX: R94.31 Abnormal electrocardiogram [ECG] [EKG] (principal)
CPT/HCPCS: 93306

== ENCOUNTER → 2024-10-03 14:18 | Outpatient (BNV) | payer OTHER, SELFPAY | PROVIDERS: PCP Internal Medicine; Visit Provider Internal Medicine | DX: R94.31 Abnormal electrocardiogram [ECG] [EKG] (principal) | CPT/HCPCS: 93306 ==

== ENCOUNTER 2024-10-25 13:55 | Emergency (ER) | payer OTHER, SELFPAY ==
[2024-10-25 14:01] VITALS: BP 146/84; PULSE 90; O2SAT 98
[2024-10-25 14:07] VITALS: BP 142/83; PULSE 82; RESP 15; RESP 16; TEMP 37.2; O2SAT 98; BMI 25.9
--- NOTE | 2024-10-25 14:58 | ED_ITS ---
HPI - General Adult General Chief complaint: General Medical Stated complaint: DOMESTIC DISTURBANCE, COMING FOR EVAL PER EMS Time Seen by Provider: 10/25/24 14:00 Source: patient Mode of arrival: ambulatory Limitations: no limitations History of Present Illness ED Provider: Salvador Coronado HPI narrative: 64-year-old male history of dementia brought to the ED by Police for evaluation after getting argument with . Patient himself denies having any suicidal/homicidal ideation. Patient himself denies auditory or visual hallucinations. Patient has stuff is aware that he has dementia. Patient is aware of time placed in year. Patient states no physical complaints. Related Data Home Medications ?Medication ?Instructions ?Recorded ?Confirmed citalopram 10 mg tablet 10 mg PO DAILY 10/25/24 10/25/24 riboflavin (vitamin B2) 400 mg 400 mg PO DAILY 10/25/24 10/25/24 tablet Previous Rx's ?Medication ?Instructions ?Recorded amlodipine 5 mg tablet 5 mg PO DAILY #90 tabs 05/24/24 magnesium oxide 400 mg (241.3 mg 400 mg PO BEDTIME 30 days #30 tabs 07/19/24 magnesium) tablet memantine 28 mg capsule 28 mg PO DAILY 30 days #30 ea 07/25/24 sprinkle,extended release 24hr quetiapine 25 mg tablet See Rx Instructions PO .COMPLEX 30 09/10/24 days #60 tabs Allergies Allergy/AdvReac Type Severity Reaction Status Date / Time No Known Allergies Allergy Verified 10/25/24 14:08 Review of Systems 2 Review of Systems: Verbal argument with Yes all other systems are reviewed and are negative PMF Past Medical History Medical History Post-dural puncture headache Forgetfulness Hypertension Surgical History Hx of colonoscopy Family History Family History Mother Dementia Father Colon cancer Social History Social History Housing: House Alcohol intake: never Patient Tobacco Use Status: Former Tobacco user Tobacco use type: Cigarette e-Cigarette/Vaping Use: Never Used Second Hand Smoke Exposure: No Advance Directives: No Advance Directives Information Provided: Yes service: No Current occupational status: unemployed Cognitive needs: No Hearing needs: No Vision needs: No Physical Exam ED Vital Signs: Vital Signs - 24 hr 10/25/24 14:07 10/25/24 14:07 Temperature 98.9 F 98.9 F Pulse Rate 82 82 Respiratory Rate 16 15 Blood Pressure 142/83 H 142/83 H Pulse Oximetry 98 98 Oxygen Delivery Method Room Air Room Air BMI result Body Mass Index 25.9 Const General: cooperative, healthy appearing, comfortable, no acute distress, well developed, alert, awake and Physically active Orientation/consciousness: patient oriented x3 [facility] Head: Yes normal to inspection, Yes No palpable skull fracture present, Yes normocephalic and Yes atraumatic Eyes General: appearance normal, both eyes and all related structures Neck Neck: Yes normal visual inspection, Yes full ROM, Yes no lymphadenopathy, Yes no meningeal signs, Yes trachea midline, Yes supple, No anterior neck swelling and No tender Chest Chest palpation & inspection: normal inspection of the chest and normal palpation of entire chest wall Resp Effort & Inspection: normal respiratory effort and able to speak in complete sentences Auscultation: clear to auscultation bilaterally Cardio Jugular venous distension: no JVD Heart sounds: S1 normal heart sound present and S2 normal heart sound present GI Inspection: Yes normal to inspection Palpation (GI): Soft to palpation, not firm, nontender, no guarding and not rigid General: Yes no CVA tenderness Back/Spine/Pelvis Back: no CVA tenderness and No back tenderness Skin General skin exam: no rashes or lesions noted, elasticity normal and turgor normal Neuro General: patient oriented x3, gait normal, tone normal, moves all extremities, Normal light touch and pain sensation, no meningeal signs, no focal motor deficits, CN's II-XI intact bilaterally and normal sensation to monofilament Extrem General: Yes normal to inspection, Yes full ROM and Yes capillary refill normal Psych Appearance: grossly normal, well kempt and not disheveled Medical Decision Making Medical Decision Making MDM Narrative: 64-year-old male presents to the ED for verbal argument with . Patient presently is not suicidal or homicidal. I spoke with his Ramila Nuñez [phone] who states patient got aggressive with her verbally and would not calm down. She states herself and grand kids were scared. She denies any physical altercations. She denies any suicidal or homicidal statements made by patient. She states patient has not been compliant with the his dementia medication and does not want help. Labs care team consult placed 8:06pm: Care team Shavon evaluated patient and spoke with family and states patient is safe for discharge. She does not recommend admission. Patient explained worrisome signs and informed to return to the ED immediately Differential Diagnosis Differential Diagnoses: The differential diagnosis associated with the presentation includes (Dementia) Admission/Observation Consideration of admission/observation: Escalation of care including admission/observation considered Consult Healthcare Provider Management of the patient was discussed with: Senior Enterprise Architect (Shavon, care team) Lab Data MDM Lab Attestation statement: I reviewed the patient's lab results. 10/25/24 15:09 10/25/24 15:09 Labs: Lab Results 10/25/24 10/25/24 Range/Units 15:09 17:42 WBC 3.6 L (4.8-10.8) X10*3/uL RBC 5.08 (4.60-5.80) X10*6/uL Hgb 14.2 (14.0-18.0) g/dl Hct 42.0 (42.0-52.0) % MCV 82.7 (80.0-98.0) fL MCH 28.0 (27.0-33.0) pg MCHC 33.8 (31.0-36.0) g/dl RDW 16.1 H (11.0-16.0) % Plt Count 236 (160-400) X10*3/uL MPV 9.3 L (9.4-12.4) fL Immature Gran % (Auto) 0.3 (0.0-0.4) % Neut % (Auto) 60.2 (45-73) % Lymph % (Auto) 23.7 (20-40) % [place] % (Auto) 12.7 H (2-11) % Eos % (Auto) 1.7 (0-4) % Baso % (Auto) 1.4 (0-2) % Lymph # (Auto) 0.8 L (1.2-4.9) X10*3/uL [place] # (Auto) 0.5 (0.1-1.2) X10*3/uL Eos # (Auto) 0.1 (0.0-0.4) X10*3/uL Baso # (Auto) 0.1 (0.0-0.2) X10*3/uL Abs Immat Gran (auto) 0.01 (0.00-0.03) X10*3/uL Absolute Neuts (auto) 2.1 (2.0-8.3) x10*3/uL Absolute Nucleated RBC 0.000 (0.0-0.012) X10*3/uL Nucleated RBC % (auto) 0.0 (0.0-0.2) /100WBC Sodium 140 (135-145) mmol/L Potassium 3.8 (3.3-5.1) mmol/L Chloride 111 H (96-108) mmol/L Carbon Dioxide 21 L (22-29) mmol/L Anion Gap 12 (12-20) BUN 13 (9-16) mg/dL Creatinine 0.80 (0.5-1.4) mg/dL Estim Creat Clear Calc 88.3 Estimated GFR > 60 Random Glucose 109 (60-115) mg/dL Calcium 8.5 D (8.4-10.2) mg/dL Total Bilirubin 0.3 (0.0-1.0) mg/dL AST 22 (5-37) U/L ALT 14 (0-40) U/L Alkaline Phosphatase 67 (39-117) U/L Total Protein 6.9 (6.5-8.0) g/dL Albumin 3.7 (3.5-5.0) g/dL Urine Color Yellow Urine Appearance Clear Urine pH 7.0 (5.0-9.0) Ur Specific [place] 1.010 (1.005-1.025) Urine Protein Negative (Neg-Trace) mg/dL Urine Glucose (UA) Negative (Negative) mg/dL Urine Ketones Negative (Negative) mg/dL Urine Blood Trace H (Negative) Urine Nitrite Negative (Negative) Ur Leukocyte Esterase Negative (Negative) Urine RBC 3-5 H (0-2) /HPF Urine WBC 0-5 (0-5) /HPF Ur Squamous Epith Cells 0-2 (0-2) /HPF Urine Bacteria None Seen (None Seen) Hyaline Casts 0-2 (0-2) /LPF Urine Opiates Screen Not Detected (Not Detect) Ur Buprenorphine Scrn Not Detected (Not Detect) ng/mL Ur Oxycodone Screen Not Detected (Not Detect) ng/mL Urine Methadone Screen Not Detected (Not Detect) ng/mL Urine Fentanyl Screen Not Detected (Not Detect) Ur Barbiturates Screen Not Detected (Not Detect) Ur Phencyclidine Scrn Not Detected (Not Detect) Ur Amphetamines Screen Not Detected (Not Detect) U Benzodiazepines Scrn Not Detected (Not Detect) Urine Cocaine Screen Not Detected (Not Detect) U Marijuana (THC) Screen Not Detected (Not Detect) Ethyl Alcohol < 10 mg/dL Independent Historian Clinical information obtained from an independent historian. History obtained from or confirmed by: Spouse (Ramila Nuñez ) and Other (Patient) Prescription Management I considered prescription management with: Other Discharge Plan Discharge Clinical Impression: Dementia Patient Disposition: Home, Self-Care Instructions: Dementia (ED) Additional Instructions: Recommend follow up with primary care provider and therapist. Return to the ED for any physical complaints, suicidal/homicidal ideation, or any other concerning symptoms. Prescriptions: No Action amlodipine 5 mg tablet 5 mg PO DAILY Qty: 90 1RF magnesium oxide 400 mg (241.3 mg magnesium) tablet 400 mg PO BEDTIME 30 Days Qty: 30 6RF Rx Instructions: may hold for loose stools memantine 28 mg capsule,sprinkle,ER 24hr 28 mg PO DAILY 30 Days Qty: 30 6RF citalopram 10 mg tablet 10 mg PO DAILY riboflavin (vitamin B2) 400 mg tablet 400 mg PO DAILY quetiapine 25 mg tablet See Rx Instructions PO .COMPLEX 30 Days Qty: 60 3RF Rx Instructions: 12.5mg q afternoon and 25mg qhs, may use extra 12.5mg qd prn orally .; Interventions: ED Discharge Assessment Last Done: 10/25/24 20:10 Discharge Date/Time: 10/25/24 20:33 Print Language: Croatian
[2024-10-25 15:12] LABS: MANUAL DIFF FLAG NO
[2024-10-25 15:14] LABS: Basophils Absolute Auto 0.1 X10*3/uL (0.0-0.2); Basophils Percent Auto 1.4 % (0-2); Eosinophils Absolute Auto 0.1 X10*3/uL (0.0-0.4); Eosinophils Percent Auto 1.7 % (0-4); Hemoglobin 14.2 g/dl (14.0-18.0); Imm Gran Abs Auto 0.01 X10*3/uL (0.00-0.03); Imm Gran Pct Auto 0.3 % (0.0-0.4); Lymphocytes Absolute Auto 0.8 X10*3/uL (1.2-4.9); Lymphocytes Percent Auto 23.7 % (20-40); Mean Corpuscular HGB Conc 33.8 g/dl (31.0-36.0); Mean Corpuscular Volume 82.7 fL (80.0-98.0); Mean Platelet Volume 9.3 fL (9.4-12.4); Monocytes Absolute Auto 0.5 X10*3/uL (0.1-1.2); Monocytes Percent Auto 12.7 % (2-11); Neutrophils Absolute Auto 2.1 x10*3/uL (2.0-8.3); Neutrophils Percent Auto 60.2 % (45-73); Platelet Count 236 X10*3/uL (160-400); Red Blood Count 5.08 X10*6/uL (4.60-5.80); Red Cell Distribution Width 16.1 % (11.0-16.0); White Blood Count 3.6 X10*3/uL (4.8-10.8)
[2024-10-25 15:28] LABS: Alanine Aminotransferase 14 U/L (0-40); Albumin Level 3.7 g/dL (3.5-5.0); Anion Gap 12 (12-20); Aspartate Amino Transferase 22 U/L (5-37); Bilirubin Total 0.3 mg/dL (0.0-1.0); Blood Urea Nitrogen 13 mg/dL (9-16); Calcium 8.5 mg/dL (8.4-10.2); Carbon Dioxide 21 mmol/L (22-29); Chloride 111 mmol/L (96-108); Creatinine Clr Calc Pharmacy 88.3; Estimated Glomerular Filt Rate > 60; Ethanol < 10 mg/dL; Glucose Random 109 mg/dL (60-115); Potassium 3.8 mmol/L (3.3-5.1); Sodium 140 mmol/L (135-145); Total Protein 6.9 g/dL (6.5-8.0)
[2024-10-25 16:01] LABS: Alkaline Phosphatase 67 U/L (39-117)
[2024-10-25 17:48] LABS: Appearance Urine Clear; Color Urine Yellow; Glucose Urine UA Negative (Negative); Leukocyte Esterase Urine Negative (Negative); Nitrite Urine Negative (Negative); UMIC TRIGGER UACC YES; Urine Blood Trace (Negative); Urine Ketones Negative (Negative); Urine Protein Negative (Neg-Trace)
[2024-10-25 17:50] LABS: Bacteria Urine None Seen (None Seen); Hyaline Casts Urine 0-2 /LPF (0-2); Squamous Epithelial Cell Urine 0-2 /HPF (0-2); WBC Urine 0-5 /HPF (0-5)
[2024-10-25 17:57] LABS: Amphetamine Screen Urine Not Detected (Not Detect); Barbiturates, Urine Not Detected (Not Detect); Benzodiazepines Screen Urine Not Detected (Not Detect); Buprenorphine Scr Not Detected (Not Detect); Cannabinoid Screen Urine Not Detected (Not Detect); Cocaine Screen Urine Not Detected (Not Detect); Fentanyl, urine Not Detected (Not Detect); Methadone Screen, Urine Not Detected (Not Detect); Opiate Screen Urine Not Detected (Not Detect); Oxycodone Screen Urine Not Detected (Not Detect); Phencyclidine Screen Urine Not Detected (Not Detect)
[2024-10-25 20:10] VITALS: BP 177/98; PULSE 64; RESP 15; TEMP 36.6; O2SAT 100
== END 2024-10-25 20:33 | disposition home or self-care (01) ==
PROVIDERS: Physician Assistant; Emergency Provider Emergency Medicine
DX: G30.9 Alzheimer's disease, unspecified (principal); F02.818 Dementia in other diseases classified elsewhere, unspecified severity, with other behavioral disturbance; R62.7 Adult failure to thrive; Z68.25 Body mass index [BMI] 25.0-25.9, adult; R45.1 Restlessness and agitation; Z91.148 Patient's other noncompliance with medication regimen for other reason
CPT/HCPCS: 36415; 80053; 80307; 81001; 85025; 99284; S9485

== ENCOUNTER 2024-11-10 16:28 | Emergency (ER) | payer OTHER, SELFPAY ==
[2024-11-10 16:37] VITALS: BP 168/96; PULSE 85; O2SAT 98
[2024-11-10 16:38] VITALS: BP 136/94; PULSE 77; RESP 18; TEMP 36.6; O2SAT 99; BMI 24.0
--- NOTE | 2024-11-10 16:45 | PC.NURSE ---
pt BIBA from home after verbal altercation with family regarding his care. pt dx with dementia and reports that he likes to have his meds given a certain way at a certain time and reports his family gets upset with this. pt A&Ox3, reports that it is 1985 but aware of who president is, states that he has dementia. per EMS daughter is HCP and kicked pt out of house to wait for EMS then told EMS that they don't care what hospital he goes to just take him away . family requesting placement. pt arrived to [facility] calm and cooperative, has no complaints. VSS
[2024-11-10 17:19] LABS: Appearance Urine Clear; Color Urine Dark Yellow; Glucose Urine UA Negative (Negative); Leukocyte Esterase Urine Small (1+) (Negative); Nitrite Urine Negative (Negative); Specific Gravity - Urine 1.015 (1.005-1.025); UMIC TRIGGER UACC YES; Urine Blood Negative (Negative); Urine Ketones Trace mg/dL (Negative); Urine Protein Negative (Neg-Trace)
[2024-11-10 17:29] VITALS: PULSE 67; RESP 15; TEMP 36.9; O2SAT 99
--- NOTE | 2024-11-10 17:46 | PC.NURSE ---
Family called and stated that pt became very aggressive at home towards his grandchildren and could not be calmed down; states pt has been having increased confusion and aggression for the past 2 weeks; pt not aggressive at this time; made aware
[2024-11-10 18:00] VITALS: BP 159/88; PULSE 65; RESP 15; TEMP 36.7; O2SAT 99
[2024-11-10 18:13] LABS: Bacteria Urine None Seen (None Seen); Hyaline Casts Urine 0-2 /LPF (0-2); RBC Urine 0-2 /HPF (0-2); Squamous Epithelial Cell Urine 0-2 /HPF (0-2); UACC Culture Trigger YES
--- NOTE | 2024-11-10 18:14 | ED.GENADULT ---
HPI - General Adult General Chief complaint: General Medical Stated complaint: dementia pt. family requesting placement Time Seen by Provider: 11/10/24 18:12 Source: EMS Limitations: other ( Dementia) History of Present Illness ED Provider: Radha Radford PA-C HPI narrative: 64-year-old male with a history of Alzheimer's dementia, anxiety, insomnia, hypertension, chronic constipation, who presents from home after family is seeking long-term placement. Patient had a verbal altercation with his family, they are his primary caregivers. They called for assistance to the home, stating that they can no longer care for the patient. Related Data Home Medications ?Medication ?Instructions ?Recorded ?Confirmed citalopram 10 mg tablet 10 mg PO DAILY 10/25/24 11/10/24 riboflavin (vitamin B2) 400 mg 400 mg PO DAILY 10/25/24 11/10/24 tablet lisinopril 40 mg tablet 40 mg PO DAILY 11/10/24 11/10/24 Previous Rx's ?Medication ?Instructions ?Recorded amlodipine 5 mg tablet 5 mg PO DAILY #90 tabs 05/24/24 magnesium oxide 400 mg (241.3 mg 400 mg PO BEDTIME 30 days #30 tabs 07/19/24 magnesium) tablet memantine 28 mg capsule 28 mg PO DAILY 30 days #30 ea 07/25/24 sprinkle,extended release 24hr quetiapine 25 mg tablet See Rx Instructions PO .COMPLEX 30 09/10/24 days #60 tabs Allergies Allergy/AdvReac Type Severity Reaction Status Date / Time No Known Allergies Allergy Verified 11/10/24 16:43 Review of Systems Review of Systems: Unable to obtain secondary to dementia Yes all other systems are reviewed and are negative [facility] Past Medical History Attestation statement: The following information was validated with the patient. Medical History Post-dural puncture headache Forgetfulness Hypertension Surgical History Hx of colonoscopy Family History Family History Mother Dementia Father Colon cancer Social History Social History Housing: House Alcohol intake: never Patient Tobacco Use Status: Former Tobacco user Tobacco use type: Cigarette Smoked in Last 30 Days: No e-Cigarette/Vaping Use: Never Used Second Hand Smoke Exposure: No Use of substances other than those prescribed or required for medical reasons: No Advance Directives: No Advance Directives Information Provided: No Do you have a plan to hurt others: No Plan service: No Current occupational status: unemployed Cognitive needs: No Hearing needs: No Vision needs: No Physical Exam ED Vital Signs: Vital Signs - 24 hr 11/12/24 21:42 11/13/24 05:32 11/13/24 07:40 Temperature 97.1 F 97.4 F 98.2 F Pulse Rate 57 57 62 Respiratory Rate 16 17 16 Blood Pressure 120/83 129/73 133/96 H Pulse Oximetry 98 98 99 Oxygen Delivery Method Room Air Room Air Room Air 11/13/24 13:22 Temperature 98 F Pulse Rate 65 Respiratory Rate 18 Blood Pressure 126/92 H Pulse Oximetry 99 Oxygen Delivery Method Room Air BMI result Body Mass Index 24.0 Const Other: alert well-appearing Orientation/consciousness: oriented to person Resp Effort & Inspection: normal respiratory effort Cardio Other: normal peripheral perfusion Skin Other: warm dry no rash Neuro General: oriented to person, gait normal, no focal motor deficits and CN's II-XI intact bilaterally Psych Other: cooperative here in the emergency room Course Reevaluation(s) Reevaluation #1: Time: 20:34 Date: 11/10/24 Provider: CRISTY Ortiz Patient in physician observation for case management needs. No acute events reported overnight.? No current issues or complaints. VS stable. Patient is pending placement at facility/pending PT/CM eval. Will continue to monitor. Reevaluation #2: Time: 15:20 Date: 11/11/24 Provider: CRISTY Goldstein Patient in physician observation for case management needs. No acute events reported overnight.? No current issues or complaints. VS stable. patient seen by Physical therapy and is currently at functional baseline. No skilled physical therapy is indicated at this time. Case management is involved, spoke with patient's this morning and the [facility] application will need to be done. To [facility] facilities are following for potential long-term care placement. will continue to monitor Reevaluation #3: Time: 16:32 Date: 11/12/24 Provider: CRISTY Goldstein Patient in physician observation for case management needs. No acute events reported overnight.? No current issues or complaints. VS stable. 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 Will continue to monitor Additional Reevaluation(s): 1232 am Penny Radford PA-C I received a call from [employer], a code status has yet to be determined for the patient, 11/10 when he was initially seen, the patient's family essentially called EMS to the home and had him brought to the ED, stating they could no longer care for the patient, no one was able to get a hold of family the day he arrived. The most recent note that I have indicating a code status is from hospital admission March of 2024 where he is a full code. I am ordering the status now, it should be updated in the system tomorrow when case management reaches back out to the family. Time: 10:07 Date: 11/13/24 Provider: CRISTY Kim Patient in physician observation for case management needs. No acute events reported overnight.?VS stable. PT evaluated patient yesterday and no therapy indicated at this time. Case management working on placement/discussions with family. Will continue to monitor. Time: 14:29 Date: 11/13/24 Provider: CRISTY Kim Physician observation ended at 1330. Family looking for long-term care however patient owns his own home and does not qualify for [facility] L[facility]. 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 Case management put referral out to [facility]. Will DC home Medications Administered Discontinued Medications Generic Name Dose Route Start Last Admin Trade Name Shazia PRN Reason Stop Dose Admin Acetaminophen 975 mg 11/10/24 21:39 11/10/24 21:44 Acetaminophen 325 Mg Tablet PO 11/10/24 21:40 975 mg ONCE ONE Administration Amlodipine Besylate 5 mg 11/12/24 09:00 11/13/24 08:15 Amlodipine Besylate 5 Mg Tablet PO 5 mg DAILY EMMA Administration Protocol Escitalopram Oxalate 5 mg 11/12/24 09:00 11/13/24 08:12 Escitalopram Oxalate 5 Mg Tablet PO 5 mg DAILY EMMA Administration Lisinopril 40 mg 11/12/24 09:00 11/13/24 08:15 Lisinopril 40 Mg Tablet PO 40 mg DAILY EMMA Administration Protocol Magnesium Oxide 400 mg 11/11/24 22:00 11/12/24 20:12 Magnesium Oxide 400 Mg Tablet PO 400 mg BEDTIME EMMA Administration Melatonin 9 mg 11/11/24 21:47 11/11/24 22:37 Melatonin 3 Mg Tablet PO 11/11/24 21:48 9 mg ONCE ONE Administration Olanzapine 10 mg 11/10/24 23:47 11/11/24 00:00 Olanzapine 10 Mg Tablet PO 11/10/24 23:48 10 mg ONCE ONE Administration Olanzapine 10 mg 11/11/24 21:47 11/11/24 22:37 Olanzapine 10 Mg Tablet PO 11/11/24 21:48 10 mg ONCE ONE Administration Quetiapine Fumarate 50 mg 11/10/24 21:39 11/10/24 21:44 Quetiapine Fumarate 50 Mg Tablet PO 11/10/24 21:40 50 mg ONCE ONE Administration Quetiapine Fumarate 12.5 mg 11/12/24 12:00 11/13/24 12:06 Quetiapine Fumarate 25 Mg Tablet PO 12.5 mg DAILY@1200 EMMA Administration Quetiapine Fumarate 25 mg 11/12/24 21:00 11/12/24 20:12 Quetiapine Fumarate 25 Mg Tablet PO 25 mg BEDTIME EMMA Administration Medical Decision Making Medical Decision Making MDM Narrative: 64-year-old male with a history of Alzheimer's dementia, anxiety, insomnia, hypertension, chronic constipation, who presents from home after family is seeking long-term placement. Patient had a verbal altercation with his family, they are his primary caregivers. They called for assistance to the home, stating that they can no longer care for the patient. problem: Dementia History: Per EMS I have considered the following differential diagnoses: Dementia, Plan: we will screen basic labs, viral panel and a urinalysis. We will hold the patient for physical therapy and case management. I have independently reviewed the following tests: Labs: No leukocytosis, not anemic, no electrolyte abnormality urine not infected, viral panel negative Lab Data 11/10/24 18:46 11/10/24 18:46 Labs: Lab Results 11/10/24 11/10/24 Range/Units 17:03 18:46 WBC 4.3 L (4.8-10.8) X10*3/uL RBC 5.23 (4.60-5.80) X10*6/uL Hgb 14.8 (14.0-18.0) g/dl Hct 44.0 (42.0-52.0) % MCV 84.1 (80.0-98.0) fL MCH 28.3 (27.0-33.0) pg MCHC 33.6 (31.0-36.0) g/dl RDW 16.0 (11.0-16.0) % Plt Count 258 (160-400) X10*3/uL MPV 9.0 L (9.4-12.4) fL Immature Gran % (Auto) 0.2 (0.0-0.4) % Neut % (Auto) 70.7 (45-73) % Lymph % (Auto) 18.2 L (20-40) % [place] % (Auto) 8.8 (2-11) % Eos % (Auto) 0.7 (0-4) % Baso % (Auto) 1.4 (0-2) % Lymph # (Auto) 0.8 L (1.2-4.9) X10*3/uL [place] # (Auto) 0.4 (0.1-1.2) X10*3/uL Eos # (Auto) 0.0 (0.0-0.4) X10*3/uL Baso # (Auto) 0.1 (0.0-0.2) X10*3/uL Abs Immat Gran (auto) 0.01 (0.00-0.03) X10*3/uL Absolute Neuts (auto) 3.1 (2.0-8.3) x10*3/uL Absolute Nucleated RBC 0.000 (0.0-0.012) X10*3/uL Nucleated RBC % (auto) 0.0 (0.0-0.2) /100WBC Sodium 143 (135-145) mmol/L Potassium 4.1 (3.3-5.1) mmol/L Chloride 107 (96-108) mmol/L Carbon Dioxide 26 (22-29) mmol/L Anion Gap 14 (12-20) BUN 13 (9-16) mg/dL Creatinine 0.94 (0.5-1.4) mg/dL Estim Creat Clear Calc 77.8 Estimated GFR > 60 Random Glucose 100 (60-115) mg/dL Calcium 8.9 (8.4-10.2) mg/dL Magnesium 2.0 (1.6-2.6) mg/dL Total Bilirubin 0.5 (0.0-1.0) mg/dL AST 22 (5-37) U/L ALT 17 (0-40) U/L Alkaline Phosphatase 70 (39-117) U/L Total Protein 7.2 (6.5-8.0) g/dL Albumin 4.1 (3.5-5.0) g/dL Urine Color Dark Yellow Urine Appearance Clear Urine pH 6.0 (5.0-9.0) Ur Specific [place] 1.015 (1.005-1.025) Urine Protein Negative (Neg-Trace) mg/dL Urine Glucose (UA) Negative (Negative) mg/dL Urine Ketones Trace (Negative) mg/dL Urine Blood Negative (Negative) Urine Nitrite Negative (Negative) Ur Leukocyte Esterase Small (1+) H (Negative) Urine RBC 0-2 (0-2) /HPF Urine WBC 6-10 H (0-5) /HPF Ur Squamous Epith Cells 0-2 (0-2) /HPF Urine Bacteria None Seen (None Seen) Hyaline Casts 0-2 (0-2) /LPF Urine Opiates Screen Not Detected (Not Detect) Ur Buprenorphine Scrn Not Detected (Not Detect) ng/mL Ur Oxycodone Screen Not Detected (Not Detect) ng/mL Urine Methadone Screen Not Detected (Not Detect) ng/mL Urine Fentanyl Screen Not Detected (Not Detect) Ur Barbiturates Screen Not Detected (Not Detect) Ur Phencyclidine Scrn Not Detected (Not Detect) Ur Amphetamines Screen Not Detected (Not Detect) U Benzodiazepines Scrn Not Detected (Not Detect) Urine Cocaine Screen Not Detected (Not Detect) U Marijuana (THC) Screen Not Detected (Not Detect) Influenza Type A (PCR) NEGATIVE (Negative) Influenza Type B (PCR) NEGATIVE (Negative) RSV RNA Qual (PCR) NEGATIVE (Negative) SARS-CoV-2 RNA (RT-PCR) NEGATIVE (Negative) Critical Care Time Critical Care Time Critical Care Time: No Discharge Plan Discharge Clinical Impression: Dementia Patient Disposition: Home, Self-Care Prescriptions: No Action amlodipine 5 mg tablet 5 mg PO DAILY Qty: 90 1RF magnesium oxide 400 mg (241.3 mg magnesium) tablet 400 mg PO BEDTIME 30 Days Qty: 30 6RF Rx Instructions: may hold for loose stools memantine 28 mg capsule,sprinkle,ER 24hr 28 mg PO DAILY 30 Days Qty: 30 6RF lisinopril 40 mg tablet 40 mg PO DAILY citalopram 10 mg tablet 10 mg PO DAILY riboflavin (vitamin B2) 400 mg tablet 400 mg PO DAILY quetiapine 25 mg tablet See Rx Instructions PO .COMPLEX 30 Days Qty: 60 3RF Rx Instructions: 12.5mg q afternoon and 25mg qhs, may use extra 12.5mg qd prn orally .; Referrals: Maribeth Talamantes MD [Primary Care Provider] - Interventions: ED Discharge Assessment Last Done: 11/13/24 13:22 Discharge Date/Time: 11/13/24 13:22 Print Language: Yi
[2024-11-10 19:02] LABS: MANUAL DIFF FLAG NO
[2024-11-10 19:03] LABS: Basophils Absolute Auto 0.1 X10*3/uL (0.0-0.2); Basophils Percent Auto 1.4 % (0-2); Eosinophils Percent Auto 0.7 % (0-4); Hemoglobin 14.8 g/dl (14.0-18.0); Imm Gran Abs Auto 0.01 X10*3/uL (0.00-0.03); Imm Gran Pct Auto 0.2 % (0.0-0.4); Lymphocytes Absolute Auto 0.8 X10*3/uL (1.2-4.9); Lymphocytes Percent Auto 18.2 % (20-40); Mean Corpuscular HGB Conc 33.6 g/dl (31.0-36.0); Mean Corpuscular Hemoglobin 28.3 pg (27.0-33.0); Mean Corpuscular Volume 84.1 fL (80.0-98.0); Monocytes Absolute Auto 0.4 X10*3/uL (0.1-1.2); Monocytes Percent Auto 8.8 % (2-11); Neutrophils Absolute Auto 3.1 x10*3/uL (2.0-8.3); Neutrophils Percent Auto 70.7 % (45-73); Platelet Count 258 X10*3/uL (160-400); Red Blood Count 5.23 X10*6/uL (4.60-5.80); White Blood Count 4.3 X10*3/uL (4.8-10.8)
[2024-11-10 19:22] LABS: Alanine Aminotransferase 17 U/L (0-40); Albumin Level 4.1 g/dL (3.5-5.0); Alkaline Phosphatase 70 U/L (39-117); Anion Gap 14 (12-20); Aspartate Amino Transferase 22 U/L (5-37); Bilirubin Total 0.5 mg/dL (0.0-1.0); Blood Urea Nitrogen 13 mg/dL (9-16); Calcium 8.9 mg/dL (8.4-10.2); Carbon Dioxide 26 mmol/L (22-29); Chloride 107 mmol/L (96-108); Creatinine Clr Calc Pharmacy 77.8; Estimated Glomerular Filt Rate > 60; Glucose Random 100 mg/dL (60-115); Potassium 4.1 mmol/L (3.3-5.1); Sodium 143 mmol/L (135-145); Total Protein 7.2 g/dL (6.5-8.0)
[2024-11-10 19:38] LABS: Influenza A PCR NEGATIVE (Negative); Influenza B PCR NEGATIVE (Negative); Resp Syncy Virus RNA Qual PCR NEGATIVE (Negative); SARS COV2 PCR INHOUSE NEGATIVE (Negative)
[2024-11-10 20:10] VITALS: BP 159/93; PULSE 70; RESP 14; TEMP 36.2; O2SAT 96
--- NOTE | 2024-11-10 20:12 | PC.NURSE ---
pt resting in room quietly, appears to be in no apparent distress. denying any acute pain or medical problems. unsure why he is here, patient appears forgetful, continuously asking the same questions. calm, cooperative. ambulatory to and from bathroom with a steady gait. waiting for ED provider to determine plan of care. pt within view of nurses station.
[2024-11-10 20:20] LABS: Amphetamine Screen Urine Not Detected (Not Detect); Barbiturates, Urine Not Detected (Not Detect); Benzodiazepines Screen Urine Not Detected (Not Detect); Buprenorphine Scr Not Detected (Not Detect); Cannabinoid Screen Urine Not Detected (Not Detect); Cocaine Screen Urine Not Detected (Not Detect); Fentanyl, urine Not Detected (Not Detect); Methadone Screen, Urine Not Detected (Not Detect); Opiate Screen Urine Not Detected (Not Detect); Oxycodone Screen Urine Not Detected (Not Detect); Phencyclidine Screen Urine Not Detected (Not Detect)
[2024-11-10] MEDS: QUEtiapine Fumarate 50 MG TABLET PO (21:44)
[2024-11-10] MEDS: Acetaminophen 325 MG TABLET 975 MG PO (21:44)
--- NOTE | 2024-11-10 23:50 | MHC.EDTECH ---
Pt intrusive with other patients and going into their rooms. Multiple attempts made to redirect patient with little success. RN aware
[2024-11-11 04:36] VITALS: RESP 18
[2024-11-11 07:37] VITALS: BP 124/71; PULSE 60; RESP 12; TEMP 36.7; O2SAT 99
--- NOTE | 2024-11-11 07:45 | PC.NURSE ---
pt ambulated to the restroom w/ a strong/steady gait. no use of assistive devices needed. pt assisted back into bed. eating breakfast w/o difficulty. 1:1 sitter remains present.
--- NOTE | 2024-11-11 08:49 | MHC.CM.PN ---
Addendum entered by Rachel Johnston 11/11/24 15:00: CM SPOKE TO PTS , MARCY [phone] SHE CONFIRMS PT NEEDS LTC PLACEMENT, SHE REPORTS SHE HAS MEDICAL PROBLEMS WELL SHE IS TRYING TO DEAL WITH SHE IS AWARE THERE ARE TWO SNFS FOLLOWING, HOWEVER THE MH JULIANNE WILL NEED TO BE DONE SHE WILL WORK ON STANDARD MH WITH [facility] Addendum entered by Rachel Johnston 11/11/24 09:48: [facility] IS FOLLOWING, PT WILL NEED A LTC MH JULIANNE, REFERRAL SENT TO [facility] Original Note: CONSULT RECEIVED PTS FAMILY STATING THEY CAN NO LONGER CARE FOR PT AND WOULD LIKE LTC PLACEMENT REFERRAL SENT TO [facility] TO DETERMINE IF PTS [facility] CAN BE CONVERTED REFERRAL BROADCASTED
--- NOTE | 2024-11-11 10:45 | PHA.MEDREC ---
Pharmacy Consult ? Medication Reconciliation Pharmacy has REVIEWED the medication reconciliation COMPLETED by nursing. Spoke with to confirm medications. and pharmacy claims show he is on amlodipine 5mg, last took his medications yesterday. read of bottles at home, pt has a bottle of tamsulosin 0.4mg HS, that has not been filled since June 2024, this was left off the med list.
[2024-11-11 14:00] VITALS: BP 119/80; PULSE 73; RESP 14; TEMP 36.7; O2SAT 100
--- NOTE | 2024-11-11 16:25 | PC.NURSE ---
Out of bed to bathroom. Ambulated with steady gait. Hasn't been eating this shift, mostly sleeping. Agreed to eat lunch tray. Eating at this time without difficulty. Thankful. Calm/cooperative.
--- NOTE | 2024-11-11 16:34 | PC.NURSE ---
Dinner tray arrived. Denies complaints/needs at this time.
[2024-11-11 22:34] VITALS: BP 147/78; PULSE 62; RESP 16; TEMP 36.8; O2SAT 98
[2024-11-11] MEDS: Melatonin 3 MG TABLET 9 MG PO (22:37)
[2024-11-11] MEDS: Magnesium Oxide 400 MG TABLET PO (22:37)
[2024-11-11] MEDS: OLANZapine 10 MG TABLET PO ×2 (22:37)
--- NOTE | 2024-11-11 23:12 | PC.NURSE ---
Assumed care of patient at 1900. Patient alert, confused, requires frequent redirection. Vitals stable, l/s clear, abd soft. Notified ED Provider patient has no medications, orders for bedtime medications. Administered po medication without difficulty, provided blanket, callbell within reach, bed alarm on.
--- NOTE | 2024-11-12 03:31 | PC.NURSE ---
This movie writer assumed care of this Pt at 0300. Pt appears to be sleeping, equal, non labored respirations. Plan of care on going.
[2024-11-12 07:56] VITALS: BP 126/90; PULSE 58; RESP 16; TEMP 36.6; O2SAT 98
[2024-11-12] MEDS: QUEtiapine Fumarate 25 MG TABLET 12.5 MG PO (09:22)
[2024-11-12] MEDS: amLODIPine Besylate 5 MG TABLET PO (09:22)
[2024-11-12] MEDS: lisinopriL 40 MG TABLET PO (09:22)
[2024-11-12] MEDS: Escitalopram Oxalate 5 MG TABLET PO (09:22)
--- NOTE | 2024-11-12 09:59 | PC.NURSE ---
Assumed care of pt at 0700. Pt alert, oriented to self only. Confused, requiring frequent redirection. Respirations even and unlabored. Pt offers no c/o pain or discomfort to TW. Compliant with medications - takes pills whole with water. Safety precautions in place - bed alarm on, yellow non-skid socks in place, call ibrahim within reach. Plan of care ongoing.
--- NOTE | 2024-11-12 13:57 | MHC.CM.ED ---
Addendum entered by Linda Arambula 11/12/24 14:00: Received voicemail from Officer August, Elder Affairs Officer, requesting return telephone call. Attempted to reach Officer August via telephone at [phone]. Left message requesting return telephone call. Original Note: Patient remains in ER overflow. Physical therapy eval completed. No skill indicated. Spoke with patient's , Quin and granddaughter, Cari via telephone at [phone]. Quin had arm surgery today. List of information required for [employer] application explained. Also provided to Cari via email. Patient owns the home he resides in. T/W explained it is unlikely [employer] would authorize [facility] because this is considered an asset. Quin and Cari verbalized understanding. Will discuss discharge plan overnight. CM will speak with Regina tomorrow 11/13 at 10am. Continue to monitor for d/c needs.
[2024-11-12] MEDS: QUEtiapine Fumarate 25 MG TABLET PO (20:12)
[2024-11-12] MEDS: Magnesium Oxide 400 MG TABLET PO (20:12)
[2024-11-12 21:42] VITALS: BP 120/83; PULSE 57; RESP 16; TEMP 36.2; O2SAT 98
[2024-11-13 05:32] VITALS: BP 129/73; PULSE 57; RESP 17; TEMP 36.3; O2SAT 98
[2024-11-13 07:40] VITALS: BP 133/96; PULSE 62; RESP 16; TEMP 36.8; O2SAT 99
[2024-11-13] MEDS: Escitalopram Oxalate 5 MG TABLET PO (08:12)
[2024-11-13] MEDS: amLODIPine Besylate 5 MG TABLET PO (08:15)
[2024-11-13] MEDS: lisinopriL 40 MG TABLET PO (08:15)
[2024-11-13] MEDS: QUEtiapine Fumarate 25 MG TABLET 12.5 MG PO (12:06)
[2024-11-13 13:22] VITALS: BP 126/92; PULSE 65; RESP 18; TEMP 36.6; O2SAT 99
== END 2024-11-13 13:22 | disposition home or self-care (01) ==
PROVIDERS: Physician Assistant Medical; Emergency Provider Emergency Medicine Emergency Medical Services; PCP Internal Medicine
DX: R62.7 Adult failure to thrive (principal); G30.9 Alzheimer's disease, unspecified; F02.80 Dementia in other diseases classified elsewhere, unspecified severity, without behavioral disturbance, psychotic disturbance, mood disturbance, and anxiety; I10 Essential (primary) hypertension; R26.81 Unsteadiness on feet; F43.9 Reaction to severe stress, unspecified; Z03.818 Encounter for observation for suspected exposure to other biological agents ruled out; Z51.81 Encounter for therapeutic drug level monitoring; Z79.899 Other long term (current) drug therapy
CPT/HCPCS: 0241U; 80053; 80307; 81001; 83735; 85025; 87086; 97161; 99285